=== PATIENT | female | born 1960 | race Caucasian/White ===

== ENCOUNTER 2016-11-10 08:15 | Inpatient (IN) | payer OTHER ==
[2016-11-10] MEDS ORDERED: DILTIAZEM 5 MG/ML 5 ML VIAL IVP STA (08:44)
[2016-11-10] MEDS ORDERED: DILTIAZEM 125 MG in SODIUM CHLORIDE 0.9% 100 ML IV ONE (09:00)
--- NOTE | 2016-11-10 09:01 | ED ---
General Adult HPI - General Chief complaint: Shortness of Breath Stated complaint: SOB Time Seen by Provider: 11/10/16 08:15 Source: patient, RN notes reviewed Mode of arrival: ambulatory Limitations: no limitations - History of Present Illness Initial comments: This is a 56-year-old female presents emergency department stating she started feeling short of breath yesterday. Patient states it seems worse with exertion. Patient denies any chest pain or palpitations patient denies any fever chills or cough. Patient denies any abdominal pain patient denies nausea vomiting diarrhea. Patient denies any recent injury or trauma. Patient denies lightheadedness dizziness or near syncopal episode. Patient denies any increased edema. Patient denies any calf pain. - Related Data Home Medications Medication Instructions Recorded Confirmed ALPRAZolam [Xanax] 0.5 mg PO DAILY PRN 11/10/16 11/10/16 Albuterol Inhaler [Ventolin Hfa 2 puff INHALATION RT-Q4H PRN 11/10/16 11/10/16 Inhaler] Atorvastatin [Lipitor] 10 mg PO HS 11/10/16 11/10/16 Cholecalciferol [Vitamin D3] 1,000 unit PO DAILY 11/10/16 11/10/16 DULoxetine HCL [Cymbalta] 30 mg PO HS 11/10/16 11/10/16 Vitamin B Complex 1 cap PO DAILY 11/10/16 11/10/16 Allergies Allergy/AdvReac Type Severity Reaction Status Date / Time No Known Allergies Allergy Verified 11/10/16 09:02 Review of Systems ROS Statement: Those systems with pertinent positive or pertinent negative responses have been documented in the HPI. ROS Other: All systems not noted in ROS Statement are negative. Past Medical History Past Medical History: COPD Additional Past Medical History / Comment(s): restrictive lung disease History of Any Multi-Drug Resistant Organisms: None Reported Past Surgical History: No Surgical Hx Reported Past Psychological History: No Psychological Hx Reported Smoking Status: Current every day smoker Past Alcohol Use History: None Reported Past Drug Use History: None Reported General Exam - General Exam Comments Initial Comments: GENERAL: Patient is well-developed and well-nourished. Patient is nontoxic and well- hydrated and is in mild distress. ENT: Neck is soft and supple. No significant lymphadenopathy is noted. Oropharynx is clear. Moist mucous membranes. Neck has full range of motion without eliciting any pain. EYES: The sclera were anicteric and conjunctiva were pink and moist. Extraocular movements were intact and pupils were equal round and reactive to light. Eyelids were unremarkable. PULMONARY: Unlabored respirations. Good breath sounds bilaterally. No audible rales rhonchi or wheezing was noted. CARDIOVASCULAR: Patient's heart rate is 150 beats a minute and is a regular ABDOMEN: Soft and nontender with normal bowel sounds. No palpable organomegaly was noted. There is no palpable pulsatile mass. SKIN: Skin is clear with no lesions or rashes and otherwise unremarkable. NEUROLOGIC: Patient is alert and oriented 3 cranial nerves II through XII are grossly intact. MUSCULOSKELETAL: Normal extremities with adequate strength and full range of motion. No lower extremity swelling or edema. No calf tenderness. LYMPHATICS: No significant lymphadenopathy is noted PSYCHIATRIC: Normal psychiatric evaluation. Normal interpersonal interactions appears functionally intact in deals appropriately with others. No signs of depression. No signs of anxiety. Limitations: no limitations Course Vital Signs 11/10/16 11/10/16 11/10/16 08:18 08:37 08:39 Temperature 99.2 F Pulse Rate 47 L Pulse Rate [ 160 H Left Radial] Respiratory 22 26 H Rate Blood Pressure 193/146 O2 Sat by Pulse 98 Oximetry 11/10/16 11/10/16 11/10/16 09:00 09:13 09:55 Temperature Pulse Rate 122 H 132 H 120 H Pulse Rate [ Left Radial] Respiratory 24 20 20 Rate Blood Pressure 156/104 117/73 125/71 O2 Sat by Pulse 98 93 L 95 Oximetry Medical Decision Making - Medical Decision Making EKG shows atrial fibrillation at 161 bpm QRS is 84 QT interval is 282 QTC is 461 per patient's EKG shows no ST segment elevation or depression. Patient was placed on Cardizem after receiving a 10 mg Cardizem bolus. Her heart rate came down to about 100 bpm. Patient states she felt a little better at this time. I heparinized the patient because of the new onset A. fib. I spoke with Dr. Joshi I admitted the patient I wrote admitting orders and consult cardiology. - Lab Data Result diagrams: 11/10/16 08:50 11/10/16 08:50 Lab Results 11/10/16 11/10/16 11/10/16 Range/Units 08:50 08:50 08:50 WBC 10.0 (3.8-10.6) k/uL RBC 4.84 (3.80-5.40) m/uL Hgb 14.1 (11.4-16.0) gm/dL Hct 44.2 (34.0-46.0) % MCV 91.5 (80.0-100.0) fL MCH 29.1 (25.0-35.0) pg MCHC 31.8 (31.0-37.0) g/dL RDW 14.4 (11.5-15.5) % Plt Count 229 (150-450) k/uL Neutrophils % 75 % Lymphocytes % 18 % Monocytes % 4 % Eosinophils % 1 % Basophils % 1 % Neutrophils # 7.5 (1.3-7.7) k/uL Lymphocytes # 1.8 (1.0-4.8) k/uL Monocytes # 0.4 (0-1.0) k/uL Eosinophils # 0.1 (0-0.7) k/uL Basophils # 0.1 (0-0.2) k/uL PT (9.0-12.0) sec INR (<1.1) APTT (22.0-30.0) sec Sodium 142 (137-145) mmol/L Potassium 4.7 (3.5-5.1) mmol/L Chloride 106 (98-107) mmol/L Carbon Dioxide 28 (22-30) mmol/L Anion Gap 8 mmol/L BUN 21 H (7-17) mg/dL Creatinine 0.80 (0.52-1.04) mg/dL Est GFR (MDRD) Af Amer >60 (>60 ml/min/1.73 sqM) Est GFR (MDRD) Non-Af >60 (>60 ml/min/1.73 sqM) Glucose 121 H (74-99) mg/dL Calcium 9.1 (8.4-10.2) mg/dL Magnesium 1.9 (1.6-2.3) mg/dL Total Bilirubin 0.9 (0.2-1.3) mg/dL AST 33 (14-36) U/L ALT 63 H (9-52) U/L Alkaline Phosphatase 62 (38-126) U/L Total Creatine Kinase 62 (30-135) U/L CK-MB (CK-2) 2.5 H* (0.0-2.4) ng/mL CK-MB (CK-2) Rel Index 4.0 Troponin I <0.012 (0.000-0.034) ng/mL Total Protein 7.1 (6.3-8.2) g/dL Albumin 3.7 (3.5-5.0) g/dL 11/10/16 Range/Units 08:50 WBC (3.8-10.6) k/uL RBC (3.80-5.40) m/uL Hgb (11.4-16.0) gm/dL Hct (34.0-46.0) % MCV (80.0-100.0) fL MCH (25.0-35.0) pg MCHC (31.0-37.0) g/dL RDW (11.5-15.5) % Plt Count (150-450) k/uL Neutrophils % % Lymphocytes % % Monocytes % % Eosinophils % % Basophils % % Neutrophils # (1.3-7.7) k/uL Lymphocytes # (1.0-4.8) k/uL Monocytes # (0-1.0) k/uL Eosinophils # (0-0.7) k/uL Basophils # (0-0.2) k/uL PT 10.5 (9.0-12.0) sec INR 1.0 (<1.1) APTT 24.0 (22.0-30.0) sec Sodium (137-145) mmol/L Potassium (3.5-5.1) mmol/L Chloride (98-107) mmol/L Carbon Dioxide (22-30) mmol/L Anion Gap mmol/L BUN (7-17) mg/dL Creatinine (0.52-1.04) mg/dL Est GFR (MDRD) Af Amer (>60 ml/min/1.73 sqM) Est GFR (MDRD) Non-Af (>60 ml/min/1.73 sqM) Glucose (74-99) mg/dL Calcium (8.4-10.2) mg/dL Magnesium (1.6-2.3) mg/dL Total Bilirubin (0.2-1.3) mg/dL AST (14-36) U/L ALT (9-52) U/L Alkaline Phosphatase (38-126) U/L Total Creatine Kinase (30-135) U/L CK-MB (CK-2) (0.0-2.4) ng/mL CK-MB (CK-2) Rel Index Troponin I (0.000-0.034) ng/mL Total Protein (6.3-8.2) g/dL Albumin (3.5-5.0) g/dL Critical Care Time Critical Care Time: Yes Total Critical Care Time: 35 Disposition Clinical Impression: Atrial fibrillation with rapid ventricular response Disposition: ADMITTED IP TO THIS HOSP Time of Disposition: 10:43
[2016-11-10 09:16] LABS: Basophils # (A) 0.1 k/uL (0-0.2); Basophils % (A) 1 %; CH 28.9; CHCM 31.8; Eosinophils # (A) 0.1 k/uL (0-0.7); Eosinophils % (A) 1 %; HCT 44.2 % (34.0-46.0); HDW 2.49; HGB 14.1 gm/dL (11.4-16.0); Luc # (Auto) 0.14; Luc % (Auto) 1; Lymphocytes # (A) 1.8 k/uL (1.0-4.8); Lymphocytes % (A) 18 %; MCH 29.1 pg (25.0-35.0); MCHC 31.8 g/dL (31.0-37.0); MCV 91.5 fL (80.0-100.0); Mean Platelet Volume 8.2; Monocytes # (A) 0.4 k/uL (0-1.0); Monocytes % (A) 4 %; Neutrophils # (A) 7.5 k/uL (1.3-7.7); Neutrophils % (A) 75 %; RBC 4.84 m/uL (3.80-5.40); RDW 14.4 % (11.5-15.5); WBC (Perox) 9.68
[2016-11-10 09:24] LABS: Prothrombin Time 10.5 sec (9.0-12.0)
[2016-11-10 09:33] LABS: ALT 63 U/L (9-52); AST 33 U/L (14-36); Alkaline Phosphatase 62 U/L (38-126); Anion Gap 8 mmol/L; Blood Urea Nitrogen 21 mg/dL (7-17); Calcium 9.1 mg/dL (8.4-10.2); Carbon Dioxide 28 mmol/L (22-30); Chloride 106 mmol/L (98-107); Glucose 121 mg/dL (74-99); Magnesium 1.9 mg/dL (1.6-2.3); Non-African American GFR(MDRD) >60 (>60 ml/min/1.73 sqM); Potassium 4.7 mmol/L (3.5-5.1); Sodium 142 mmol/L (137-145); Total Bilirubin 0.9 mg/dL (0.2-1.3); Total Protein 7.1 g/dL (6.3-8.2)
[2016-11-10 09:43] LABS: Creatine Kinase 62 U/L (30-135)
[2016-11-10 09:56] LABS: Troponin I <0.012 ng/mL (0.000-0.034)
[2016-11-10 09:58] LABS: Creatine Kinase MB 2.5 ng/mL (0.0-2.4)
[2016-11-10] MEDS ORDERED: HEPARIN SODIUM,PORCINE 5,000 UNIT/ML 1 ML VIAL IV ONE (10:41)
[2016-11-10] MEDS ORDERED: NITROGLYCERIN SL TABS 0.4 MG TAB SUBLINGUAL PRN (10:44)
[2016-11-10] MEDS: HEPARIN SODIUM,PORCINE/D5W PMX 25,000 UNIT in DEXTROSE/WATER 1 500ML.BAG IV SCH (11:11)
[2016-11-10] MEDS ORDERED: ALPRAZolam 0.5 MG TAB PO PRN (13:39)
[2016-11-10] MEDS ORDERED: ALBUTEROL NEBULIZED 2.5 MG/3 ML INHALATION PRN (13:39)
--- NOTE | 2016-11-10 13:56 | P.HPIM ---
History of Present Illness H&P Date: 11/10/16 Chief Complaint: Shortness of breath This is a 56-year-old female, patient of Dr. Hansen. She has a known past medical history of nicotine dependence, COPD, hyperlipidemia, anxiety, depression and obstructive sleep apnea. Patient presents the hospital with chief complaint of shortness of breath. Patient reports over the last month she thought she had a cough and chest cold contributed to her shortness of breath. However, last night she woke up with sudden shortness of breath. The shortness of breath did not improve. Therefore she came into the emergency room for further evaluation. She also has noted to have been more fatigued having shortness of breath with walking and feeling more nauseous. She does have a cough which was productive a few weeks ago and has now become nonproductive with some improvement. She denies any fever, chills, sweats, or vomiting. She does report having an episode of chest pain in the center of her chest that did resolve. Denies any bowel movement changes or urinary symptoms. Her EKG showed atrial fibrillation with rapid ventricular response with a heart rate of 161. She was given a Cardizem bolus and is currently on IV Cardizem drip. She's also on IV heparin drip. Cardiology has been consulted. This is a new onset of atrial fibrillation for patient. Troponin is negative. Chest x-ray is pending. Patient reports her last stress test was in June and it was normal. Patient is also noted some edema in her lower extremities bilaterally. She has been given water pills in the past. Currently not taking any water pills. Reports never having a history of congestive heart failure. Denies any leg pain. Review of Systems Please refer to HPI otherwise unremarkable Past Medical History Past Medical History: COPD, Hyperlipidemia, Sleep Apnea/CPAP/BIPAP (Currently not using CPAP. Has an appointment with meters superintendent for sleep study) Additional Past Medical History / Comment(s): restrictive lung disease, 06/2016 stress test WNL per pt. History of Any Multi-Drug Resistant Organisms: None Reported Past Surgical History: Tubal Ligation Past Anesthesia/Blood Transfusion Reactions: No Reported Reaction Past Psychological History: Anxiety, Depression Additional Psychological History / Comment(s): Pt resides with 2 adult daughters and her 4 yr old grand daughter. She is independent. Smoking Status: Current every day smoker Past Alcohol Use History: None Reported Additional Past Alcohol Use History / Comment(s): Pt started smoking in and was a ppd smoker. Recently she has cut back to 12-13 cigs a day. Past Drug Use History: None Reported - Past Family History Mother Family Medical History: Liver Disease Additional Family Medical History / Comment(s): Mother had cirrhosis. She at the age of 71yrs. Father Family Medical History: Cancer Additional Family Medical History / Comment(s): Father had mesothelioma. He at the age of 71 yrs. Medications and Allergies Home Medications Medication Instructions Recorded Confirmed Type ALPRAZolam [Xanax] 0.5 mg PO DAILY PRN 11/10/16 11/10/16 History Albuterol Inhaler [Ventolin Hfa 2 puff INHALATION RT-Q4H PRN 11/10/16 11/10/16 History Inhaler] Atorvastatin [Lipitor] 10 mg PO HS 11/10/16 11/10/16 History Cholecalciferol [Vitamin D3] 1,000 unit PO DAILY 11/10/16 11/10/16 History DULoxetine HCL [Cymbalta] 30 mg PO HS 11/10/16 11/10/16 History Vitamin B Complex 1 cap PO DAILY 11/10/16 11/10/16 History Allergies Allergy/AdvReac Type Severity Reaction Status Date / Time No Known Allergies Allergy Verified 11/10/16 09:02 Physical Exam Vitals: Vital Signs Temp Pulse Resp BP Pulse Ox 11/10/16 12:30 97.9 F 116 H 20 134/61 94 L 11/10/16 11:43 102 H 18 129/60 95 11/10/16 11:28 98 18 139/82 95 11/10/16 10:58 102 H 20 134/77 93 L Head normocephalic Neck supple Lungs coarse breath sounds that cleared with cough Heart regular rate and rhythm S1-S2, no rub or gallop Abdomen is soft nontender nondistended positive bowel sounds no hepatosplenomegaly Extremities trace to +1 edema bilaterally. No tenderness to palpation of legs. Neuro alert and orientated to 3 Results CBC & Chem 7: 11/10/16 08:50 11/10/16 08:50 Thrombosis Risk Factor Assmnt - Choose All That Apply Any of the Below Risk Factors Present?: Yes Each Factor Represents 1 point: Abnormal pulmonary function (COPD), Age 41-60 years, Obesity (BMI >25), Swollen legs (current) Other Risk Factors: No Other congenital or acquired thrombophilia - If yes, enter type in comment: No Thrombosis Risk Factor Assessment Total Risk Factor Score: 4 Thrombosis Risk Factor Assessment Level: Moderate Risk Assessment and Plan Plan: 1. Shortness of breath: Possibly related to the atrial fibrillation with rapid ventricular response. Await chest x-ray. Check BNP level. check d-dimer. To help rule out CHF or PE 2. New onset of atrial fibrillation with rapid ventricular response: Patient has been started on IV Cardizem drip and IV heparin. Cardiology has been consulted. Check TSH level 3. Nicotine dependence: Discussed smoking cessation for greater than 3 minutes. Start patient on nicotine patch 4. History of COPD: Stable. Continue albuterol inhaler as needed 5. Generalized Anxiety disorder and depression: Resume Xanax and Cymbalta 6. Hyperlipidemia resume Lipitor 7. History of obstructive sleep apnea: Needs a new CPAP machine. She has sleep study scheduled for outpatient GI prophylaxis Pepcid and DVT prophylaxis IV heparin Time with Patient: Greater than 30 (Greater than 50% of the total time spent in counseling and coordination of care.I performed an examination of the patient and discussed their management with the physician College Director. I have reviewed the Physician College Director's notes and agree with the documented findings and plan of care)
--- NOTE | 2016-11-10 14:59 | P.CRDCN ---
History of Present Illness Consult date: 11/10/16 History of present illness: This is a pleasant 56-year-old female patient with a past medical history significant for obesity and dyslipidemia as well as COPD who sees Dr. Darnell in the office on a regular basis presented to the hospital not feeling well. The patient was experiencing shortness of breath associated with weakness and dizziness and lightheadedness. She did not feed any heart racing or fluttering. She did not experience any chest pain or chest discomfort. The EKG in the emergency room showed A. fib with RVR and subsequently the patient was admitted to the hospital and started on Cardizem IV and heparin IV. She is not aware of any prior history of atrial fibrillation. Currently the patient is in A. fib with rapid ventricular response. She underwent only one set of serial cardiac enzymes came in to be unremarkable. The EKG showed diffuse nonspecific ST and T wave abnormalities. On physical examination, the patient seems to have expiratory bilateral wheezing and crackles. I do feel that she has a component of congestive heart failure in addition to the A. fib with RVR. We'll continue the patient on Cardizem and heparin. I will obtain the previous medical records from the office. I will also schedule the patient to undergo an echocardiogram was Doppler. Smoking cessation was discussed with her. Going to start the patient on Lasix IV. The chest x-ray still pending and the BMP also still pending. Past Medical History Past Medical History: COPD, Hyperlipidemia, Sleep Apnea/CPAP/BIPAP (Currently not using CPAP. Has an appointment with hansard reporter for sleep study) Additional Past Medical History / Comment(s): restrictive lung disease, 06/2016 stress test WNL per pt. History of Any Multi-Drug Resistant Organisms: None Reported Past Surgical History: Tubal Ligation Past Anesthesia/Blood Transfusion Reactions: No Reported Reaction Past Psychological History: Anxiety, Depression Additional Psychological History / Comment(s): Pt resides with 2 adult daughters and her 4 yr old grand daughter. She is independent. Smoking Status: Current every day smoker Past Alcohol Use History: None Reported Additional Past Alcohol Use History / Comment(s): Pt started smoking in and was a ppd smoker. Recently she has cut back to 12-13 cigs a day. Past Drug Use History: None Reported - Past Family History Mother Family Medical History: Liver Disease Additional Family Medical History / Comment(s): Mother had cirrhosis. She at the age of 71yrs. Father Family Medical History: Cancer Additional Family Medical History / Comment(s): Father had mesothelioma. He at the age of 71 yrs. Medications and Allergies Home Medications Medication Instructions Recorded Confirmed Type ALPRAZolam [Xanax] 0.5 mg PO DAILY PRN 11/10/16 11/10/16 History Albuterol Inhaler [Ventolin Hfa 2 puff INHALATION RT-Q4H PRN 11/10/16 11/10/16 History Inhaler] Atorvastatin [Lipitor] 10 mg PO HS 11/10/16 11/10/16 History Cholecalciferol [Vitamin D3] 1,000 unit PO DAILY 11/10/16 11/10/16 History DULoxetine HCL [Cymbalta] 30 mg PO HS 11/10/16 11/10/16 History Vitamin B Complex 1 cap PO DAILY 11/10/16 11/10/16 History Allergies Allergy/AdvReac Type Severity Reaction Status Date / Time No Known Allergies Allergy Verified 11/10/16 09:02 Physical Exam Vitals: Vital Signs Temp Pulse Resp BP Pulse Ox 11/10/16 12:30 97.9 F 116 H 20 134/61 94 L 11/10/16 11:43 102 H 18 129/60 95 11/10/16 11:28 98 18 139/82 95 11/10/16 10:58 102 H 20 134/77 93 L - Constitutional General appearance: no acute distress - Respiratory Respiratory: bilateral: rales - Cardiovascular Rhythm: irregularly irregular Heart sounds: normal: S1, S2 Results 11/10/16 08:50 11/10/16 08:50 Current Medications Generic Name Dose Route Start Last Admin Trade Name Freq PRN Reason Stop Dose Admin Albuterol Sulfate 2.5 mg 11/10/16 13:39 Ventolin Nebulized INHALATION RT-Q4H PRN Shortness Of Breath Alprazolam 0.5 mg 11/10/16 13:39 Xanax PO DAILY PRN Anxiety Aspirin 325 mg 11/11/16 09:00 Aspirin PO DAILY [facility] Atorvastatin Calcium 10 mg 11/10/16 21:00 Lipitor PO HS [facility] Cholecalciferol 1,000 unit 11/11/16 12:00 Vitamin D3 PO DAILY@1200 [facility] Duloxetine HCl 30 mg 11/10/16 21:00 Cymbalta PO HS [facility] Famotidine 20 mg 11/11/16 09:00 Pepcid PO DAILY [facility] Diltiazem HCl 125 mg/ Sodium 125 mls @ 5 mls/hr 11/10/16 09:00 11/10/16 09:04 Chloride IV 11/11/16 08:59 5 mg/hr .Q24H ONE 5 mls/hr 5 MG/HR Administration Heparin Sodium/Dextrose 25,000 500 mls @ 20 mls/hr 11/10/16 10:45 11/10/16 11 :11 unit/ IV Solution IV 8.227 units/kg/hr .Q24H [facility] 20 mls/hr Protocol Administration 8.227 UNITS/KG/HR Nicotine 1 patch 11/10/16 14:00 Habitrol 21mg/24hr Patch TRANSDERM DAILY [facility] Nitroglycerin 0.4 mg 11/10/16 10:44 Nitrostat SUBLINGUAL Q5M PRN Chest Pain Vitamin B Complex/Vit C/Vit E/Zinc 1 each 11/11/16 12:00 Z-Bec PO DAILY@1200 [facility] Assessment and Plan Plan: Assessment A. fib with RVR and that is a newly diagnosed A. fib Congestive heart failure exacerbation and known if it is due to systolic or diastolic dysfunction Probably COPD exacerbation Significant history of smoking Plan Continue the heparin IV and Cardizem IV and titrate the Cardizem for the heart rate Obtain an echocardiogram was Doppler Start the patient on Lasix IV Obtain the previous medical records from the office
[2016-11-10] MEDS ORDERED: ACETAMINOPHEN TAB 325 MG TAB PO PRN (15:06)
[2016-11-10 15:34] LABS: Creatine Kinase 63 U/L (30-135)
[2016-11-10 15:40] LABS: Partial Thromboplastin Time 29.8 sec (22.0-30.0)
[2016-11-10 15:48] LABS: Troponin I <0.012 ng/mL (0.000-0.034)
[2016-11-10 15:52] LABS: Creatine Kinase MB 2.5 ng/mL (0.0-2.4)
--- NOTE | 2016-11-10 16:03 | XR ---
EXAMINATION TYPE: XR chest 2V DATE OF EXAM: 11/10/2016 9:23 AM COMPARISON: 12/18/2015 HISTORY: Shortness of breath TECHNIQUE: Frontal and lateral views of the chest are obtained. FINDINGS: Scattered senescent parenchymal changes noted. Hyperinflation compatible with COPD. No evidence for infiltrate. No evidence for atelectasis. There is evidence of cardiomegaly with pulmonary venous congestion. No evidence for overt failure at this time. Mediastinal structures are stable and grossly unremarkable. No evidence for hilar prominence. Degenerative changes dorsal spine. IMPRESSION: 1. There is evidence of cardiomegaly with pulmonary venous congestion. No evidence for overt failure at this time.
[2016-11-10] MEDS: NICOTINE 21MG/24HR PATCH TRANSDERM SCH (16:06)
[2016-11-10] MEDS: FUROSEMIDE 10 MG/ML 4 ML VIAL IV SCH (16:07)
[2016-11-10] MEDS ORDERED: FUROSEMIDE 10 MG/ML 4 ML VIAL IV SCH (21:00)
[2016-11-10] MEDS: ATORVASTATIN 10 MG TAB PO SCH (21:09)
[2016-11-10] MEDS: DULoxetine HCL 30 MG CAPSULE.DR PO SCH (21:09)
[2016-11-10] MEDS: HEPARIN SODIUM,PORCINE 5,000 UNIT/ML 1 ML VIAL IV PRN (21:43)
[2016-11-10 21:53] LABS: Creatine Kinase 65 U/L (30-135)
[2016-11-10 22:05] LABS: Creatine Kinase MB 2.1 ng/mL (0.0-2.4); Troponin I <0.012 ng/mL (0.000-0.034)
[2016-11-11 03:32] LABS: Basophils # (A) 0.1 k/uL (0-0.2); Basophils % (A) 1 %; CHCM 31.3; Eosinophils # (A) 0.2 k/uL (0-0.7); Eosinophils % (A) 2 %; HCT 41.4 % (34.0-46.0); HDW 2.52; HGB 13.3 gm/dL (11.4-16.0); Hypochromasia Slight; Luc # (Auto) 0.13; Luc % (Auto) 2; Lymphocytes # (A) 1.8 k/uL (1.0-4.8); Lymphocytes % (A) 22 %; MCH 29.9 pg (25.0-35.0); MCHC 32.1 g/dL (31.0-37.0); MCV 93.2 fL (80.0-100.0); Mean Platelet Volume 8.3; Monocytes # (A) 0.4 k/uL (0-1.0); Monocytes % (A) 5 %; Neutrophils # (A) 5.6 k/uL (1.3-7.7); Neutrophils % (A) 69 %; RBC 4.44 m/uL (3.80-5.40); RDW 14.2 % (11.5-15.5); WBC 8.1 k/uL (3.8-10.6); WBC (Perox) 7.86
[2016-11-11 03:37] LABS: ALT 64 U/L (9-52); AST 26 U/L (14-36); Alkaline Phosphatase 53 U/L (38-126); Anion Gap 9 mmol/L; Blood Urea Nitrogen 18 mg/dL (7-17); Calcium 8.6 mg/dL (8.4-10.2); Carbon Dioxide 27 mmol/L (22-30); Chloride 106 mmol/L (98-107); Cholesterol 131 mg/dL (<200); Glucose 104 mg/dL (74-99); HDL Cholesterol 39 mg/dL (40-60); Non-African American GFR(MDRD) >60 (>60 ml/min/1.73 sqM); Potassium 4.3 mmol/L (3.5-5.1); Sodium 142 mmol/L (137-145); Total Bilirubin 0.6 mg/dL (0.2-1.3); Total Protein 6.2 g/dL (6.3-8.2); Triglycerides 83 mg/dL (<150)
[2016-11-11] MEDS: HEPARIN SODIUM,PORCINE 5,000 UNIT/ML 1 ML VIAL IV PRN ×2 (04:14→21:59)
[2016-11-11] MEDS: FUROSEMIDE 10 MG/ML 4 ML VIAL IV SCH ×2 (04:14→16:18)
[2016-11-11] MEDS: FAMOTIDINE 20 MG TAB PO SCH (08:10)
[2016-11-11] MEDS: ASPIRIN 325 MG TAB PO SCH (08:11)
[2016-11-11] MEDS: HEPARIN SODIUM,PORCINE/D5W PMX 25,000 UNIT in DEXTROSE/WATER 1 500ML.BAG IV SCH ×2 (08:12→21:59)
[2016-11-11] MEDS: NICOTINE 21MG/24HR PATCH TRANSDERM SCH (08:12)
[2016-11-11] MEDS: B COMPLEX-VIT C-VIT E-ZINC 1 EACH TAB PO SCH (08:13)
[2016-11-11] MEDS: CHOLECALCIFEROL 1,000 UNIT TAB PO SCH (08:14)
[2016-11-11] MEDS ORDERED: NICOTINE 21MG/24HR PATCH TRANSDERM SCH (09:00)
[2016-11-11 11:21] LABS: Hemoglobin A1C 5.7 % (4.2-6.1)
--- NOTE | 2016-11-11 12:07 | ECHOF ---
Referral Reason:CHF MEASUREMENTS -------- HEIGHT: 177.8 cm WEIGHT: 123.4 kg BP: 116/69 IVSd: 1.1 cm (0.6 - 1.1) LVIDd: 5.4 cm (3.9 - 5.3) LVPWd: 1.3 cm (0.6 - 1.1) IVSs: 1.7 cm LVIDs: 5.3 cm LVPWs: 1.1 cm Ao Diam: 3.3 cm (2.0 - 3.7) AV Cusp: 1.9 cm (1.5 - 2.6) LA Diam: 4.3 cm (2.7 - 3.8) MV EXCURSION: 19.913 mm (> 18.000) MV EF SLOPE: 85 mm/s (70 - 150) EPSS: 1.7 cm RAP: 5.00 mmHg RVSP: 9.06 mmHg FINDINGS -------- Atrial fibrillation. This was a technically difficult study with suboptimal views. There is mild concentric left ventricular hypertrophy. There is severe global hypokinesis of LV . Overall left ventricular systolic function is severely impaired with, an EF between 20 - 25 %. The right ventricle is normal in size and function. The left atrium is moderately dilated. The right atrium is normal in size. 1.5mg of Definity was utilized for enhancement of images The aortic valve was not well visualized. There is trace mitral regurgitation. Trace tricuspid regurgitation present. The right ventricular systolic pressure, as measured by Doppler, is 9.06mmHg. The pulmonic valve was not well visualized. The aortic root size is normal. The pericardium is normal. CONCLUSIONS -------- 1. Atrial fibrillation. 2. The aortic valve was not well visualized. 3. There is trace mitral regurgitation. 4. Trace tricuspid regurgitation present. 5. The right ventricular systolic pressure, as measured by Doppler, is 9.06mmHg. 6. The pulmonic valve was not well visualized. 7. The aortic root size is normal. 8. The pericardium is normal. 9. This was a technically difficult study with suboptimal views. 10. There is mild concentric left ventricular hypertrophy. 11. There is severe global hypokinesis of LV . 12. Overall left ventricular systolic function is severely impaired with, an EF between 20 - 25 %. 13. The right ventricle is normal in size and function. 14. The left atrium is moderately dilated. 15. The right atrium is normal in size. 16. 1.5mg of Definity was utilized for enhancement of images FURNITURE POLISHER: Patria Villarreal RDCS
--- NOTE | 2016-11-11 13:36 | P.PN ---
Subjective Principal diagnosis: A. fib with RVR, acute CHF exacerbation Patient is a 56-year-old female presenting with worsening shortness of breath She was evaluated in the emergency room she had evidence of atrial fibrillation with rapid ventricular response, she was admitted to telemetry floor and was started on IV Cardizem and IV heparin Echocardiogram was done and revealed significantly low ejection fraction of 20- 25% Patient is maintained on IV Lasix she states that she is improving Objective - Vital Signs Vital signs: Vital Signs Temp 98.3 F 11/11/16 08:00 Pulse 100 11/11/16 11:10 Resp 16 11/11/16 11:10 BP 130/92 11/11/16 11:10 Pulse Ox 91 L 11/11/16 11:10 Intake & Output 11/10/16 11/11/16 11/11/16 18:59 06:59 18:59 Intake Total 800 812.127 435.666 Output Total 3200 1200 1000 Balance -2400 -387.873 -564.334 Weight 123.7 kg Intake: IV 20 419.76 0.9 Saline 20 160 Diltiazem 125 mg In 40 Sodium Chloride 0.9% 100 ml @ 5 MG/HR 5 mls/hr IV .Q24H [facility] Rx#:[id number] Heparin Sodium,Porcine/ 219.76 D5w Pmx 25,000 unit In Dextrose/Water 1 500ml. bag @ 8.227 UNITS/KG/HR 20 mls/hr IV .Q24H [facility] Rx #:[id number] Intake, IV Titration 392.367 235.666 Amount Heparin Sodium,Porcine/ 392.367 235.666 D5w Pmx 25,000 unit In Dextrose/Water 1 500ml. bag @ 8.227 UNITS/KG/HR 20 mls/hr IV .Q24H [facility] Rx #:[id number] Oral 780 200 Output: Urine 3200 1200 1000 Other: Voiding Method Toilet # Voids 1 3 - Exam In general patient is alert and oriented 3 in no apparent distress HEENT head normocephalic and atraumatic Neck is supple no JVD no goiter no lymphadenopathy Chest exam reveals crackles in both lung azul no wheezing Cardiac exam reveals regular heart sounds no murmurs abdomen is soft nontender no organomegaly Extremity exam reveals no edema no cyanosis or clubbing - Labs CBC & Chem 7: 11/11/16 03:01 05/02/17 03:01 Labs: Abnormal Lab Results - Last 24 Hours (Table) 11/10/16 11/10/16 11/11/16 Range/Units 14:58 14:58 03:01 APTT (22.0-30.0) sec D-Dimer 0.71 H (<0.60) mg/L FEU BUN 18 H (7-17) mg/dL Glucose 104 H (74-99) mg/dL ALT 64 H (9-52) U/L CK-MB (CK-2) 2.5 H* (0.0-2.4) ng/mL Total Protein 6.2 L (6.3-8.2) g/dL Albumin 3.3 L (3.5-5.0) g/dL HDL Cholesterol 39 L (40-60) mg/dL 11/11/16 11/11/16 Range/Units 03:01 10:41 APTT 32.7 H 42.2 H (22.0-30.0) sec D-Dimer (<0.60) mg/L FEU BUN (7-17) mg/dL Glucose (74-99) mg/dL ALT (9-52) U/L CK-MB (CK-2) (0.0-2.4) ng/mL Total Protein (6.3-8.2) g/dL Albumin (3.5-5.0) g/dL HDL Cholesterol (40-60) mg/dL Assessment and Plan Plan: 1. Shortness of breath: Possibly related to the atrial fibrillation with rapid ventricular response. Also evidence of acute congestive heart failure exacerbation with significantly depressed ejection fraction to 20-25% 2. New onset of atrial fibrillation with rapid ventricular response: Patient has been started on IV Cardizem drip and IV heparin. Cardiology has been consulted. Check TSH level 3. Nicotine dependence: Discussed smoking cessation for greater than 3 minutes. Start patient on nicotine patch 4. History of COPD: Stable. Continue albuterol inhaler as needed 5. Generalized Anxiety disorder and depression: Resume Xanax and Cymbalta 6. Hyperlipidemia resume Lipitor 7. History of obstructive sleep apnea: Needs a new CPAP machine. She has sleep study scheduled for outpatient At this time continue was current medications with IV heparin, IV Cardizem, IV Lasix drip Awaiting further recommendation from cardiology Prognosis is guarded due to decreased ejection fraction will follow closely
--- NOTE | 2016-11-11 14:31 | CDI ---
In responding to this query, please exercise your independent professional judgment. The [facility] Coding Staff and Clinical Documentation Specialists appreciate your assistance in clarifying documentation, maintaining compliance with coding guidelines, accurately documenting patients condition and capturing severity of illness. The fact that a question is asked does not imply that any particular answer is desired or expected. Communication forms are a method of clarifying documentation and are not made part of the Legal Health Record. Thank you in advance for your clarification. Last Revision, May 2015 Brianna Geiger [address] [place] [address] Documentation Clarification Form Date: 11/11/2016 2:21:00 PM From: Carmen Maloney, ELIZ, CCDS Admit Date: 11/10/2016 10:44:00 AM Patient Name: Bushra Mcdermott Visit Number: [id number] Discharge Date: Dr. Jonatan Talamantes: 56 yo female, admitted with SOB, weakness & dizziness & lightheadedness. EKG in ER: Atrial fibrillation w/RVR and started on Cardizem & Heparin drips with no history of Atrial fibrillation. Diagnosed with possible new onset of Atrial Fibrillation. History/Risk Factors: COPD, Hyperlipidemia, Sleep Apnea w/CPAP. Clinical Indicators: A fib on EKG with irregular heart rate: 47 - 122 with respiratory rate of 26 (sob, shallow, tachypnea) BP 193/146 EKG/telemetry: A Fib w/RVR Rate 161 Treatment: Cardizem & Heparin drips, ECHO Consults: Cardiology In your professional opinion, can you please clarify the type of atrial fibrillation, if known? Chronic/Permanent Paroxysmal Persistent Other, please specify Unable to determine Please document in your progress notes and discharge summary in order to capture severity of illness and risk of mortality. Include clinical findings that support your diagnosis. FYI: Press F11 to launch patient chart Place X here if this finding has no clinical significance, is not applicable or if you are not able to provide any additional documentation. Thank You. ELEANOR
--- NOTE | 2016-11-11 14:44 | P.PN ---
Subjective Principal diagnosis: A. fib, CHF This is a pleasant 56-year-old female patient with a past medical history significant for obesity and dyslipidemia as well as COPD who sees Dr. Darnell in the office on a regular basis presented to the hospital not feeling well.The patient was experiencing shortness of breath associated with weakness and dizziness and lightheadedness. She did not feel any heart racing or fluttering. She did not experience any chest pain or chest discomfort.The EKG in the emergency room showed A. fib with RVR and subsequently the patient was admitted to the hospital and started on Cardizem IV and heparin IV. She is not aware of any prior history of atrial fibrillation. Patient was also initiated on IV Lasix for mild congestive cardiac failure. Overall the patient is feeling significantly better today. Diuresed well through the night last night. Continues to be in atrial fibrillation with a controlled ventricular response. Echocardiogram with Doppler study was performed which revealed an ejection fraction of 20-25%. Severe global hypokinesia. Objective - Vital Signs Vital signs: Vital Signs Temp 98.3 F 11/11/16 08:00 Pulse 100 11/11/16 11:10 Resp 16 11/11/16 11:10 BP 130/92 11/11/16 11:10 Pulse Ox 91 L 11/11/16 11:10 Intake & Output 11/10/16 11/11/16 11/11/16 18:59 06:59 18:59 Intake Total 800 812.127 435.666 Output Total 3200 1200 1000 Balance -2400 -387.873 -564.334 Weight 123.7 kg Intake: IV 20 419.76 0.9 Saline 20 160 Diltiazem 125 mg In 40 Sodium Chloride 0.9% 100 ml @ 5 MG/HR 5 mls/hr IV .Q24H [facility] Rx#:[id number] Heparin Sodium,Porcine/ 219.76 D5w Pmx 25,000 unit In Dextrose/Water 1 500ml. bag @ 8.227 UNITS/KG/HR 20 mls/hr IV .Q24H [facility] Rx #:[id number] Intake, IV Titration 392.367 235.666 Amount Heparin Sodium,Porcine/ 392.367 235.666 D5w Pmx 25,000 unit In Dextrose/Water 1 500ml. bag @ 8.227 UNITS/KG/HR 20 mls/hr IV .Q24H [facility] Rx #:[id number] Oral 780 200 Output: Urine 3200 1200 1000 Other: Voiding Method Toilet # Voids 1 3 - Exam PHYSICAL EXAMINATION: HEENT: Head is atraumatic, normocephalic. Pupils equal, round. Neck is supple. There is no elevated jugular venous pressure. HEART EXAMINATION: Heart S1 and S2 irregularly irregular CHEST EXAMINATION:'s reveal rales to bilateral bases. ABDOMEN: Soft, nontender. Bowel sounds are heard. No organomegaly noted. EXTREMITIES: 2+ peripheral pulses with no evidence of peripheral edema and no calf tenderness noted. NEUROLOGIC patient is awake, alert and oriented -3. . - Labs CBC & Chem 7: 11/11/16 03:01 11/11/16 03:01 Labs: Abnormal Lab Results - Last 24 Hours (Table) 11/10/16 11/10/16 11/11/16 Range/Units 14:58 14:58 03:01 APTT (22.0-30.0) sec D-Dimer 0.71 H (<0.60) mg/L FEU BUN 18 H (7-17) mg/dL Glucose 104 H (74-99) mg/dL ALT 64 H (9-52) U/L CK-MB (CK-2) 2.5 H* (0.0-2.4) ng/mL Total Protein 6.2 L (6.3-8.2) g/dL Albumin 3.3 L (3.5-5.0) g/dL HDL Cholesterol 39 L (40-60) mg/dL 11/11/16 11/11/16 Range/Units 03:01 10:41 APTT 32.7 H 42.2 H (22.0-30.0) sec D-Dimer (<0.60) mg/L FEU BUN (7-17) mg/dL Glucose (74-99) mg/dL ALT (9-52) U/L CK-MB (CK-2) (0.0-2.4) ng/mL Total Protein (6.3-8.2) g/dL Albumin (3.5-5.0) g/dL HDL Cholesterol (40-60) mg/dL Assessment and Plan (1) Chronic a-fib Status: Acute (2) Systolic CHF, acute on chronic Status: Acute (3) COPD exacerbation Status: Acute (4) Nicotine dependence Status: Acute (5) Cardiomyopathy Status: Acute Plan: From cardiology's perspective, we'll decrease aspirin 81 mg daily, and initiate low-dose beta cirilo, KAMILLA inhibitor, and Aldactone. Continue current dose of IV Lasix. Continue to monitor intake and output along with daily weights. We will also check to see if the patient is a candidate for one of the newer anticoagulants. Further recommendations to follow. DNP note has been reviewed, I agree with a documented findings and plan of care. Patient was seen and examined.
--- NOTE | 2016-11-11 14:46 | CDI ---
In responding to this query, please exercise your independent professional judgment. The [facility] Coding Staff and Clinical Documentation Specialists appreciate your assistance in clarifying documentation, maintaining compliance with coding guidelines, accurately documenting patients condition and capturing severity of illness. The fact that a question is asked does not imply that any particular answer is desired or expected. Communication forms are a method of clarifying documentation and are not made part of the Legal Health Record. Thank you in advance for your clarification. Last Revision, September 2015 Brianna Geiger [address] [place] [address] Documentation Clarification Form Date: 11/11/2016 2:32:00 PM From: Carmen Maloney, ELIZ, CCDS Admit Date: 11/10/2016 10:44:00 AM Patient Name: Bushra Mcdermott Visit Number: [id number] Discharge Date: Dr. Jonatan Talamantes: 56 yo female, admitted with SOB, weakness & dizziness & lightheadedness. EKG in ER: Atrial fibrillation w/RVR and started on Cardizem & Heparin drips with no history of atrial fibrillation. Diagnosed with possible new onset of Atrial Fibrillation History/Risk Factors: COPD, Hyperlipidemia, Sleep Apnea w/CPAP. Clinical Indicators: A fib on EKG with irregular heart rate: 47 - 122 with respiratory rate of 26 (sob, shallow, tachypnea) BP 193/146. EKG/telemetry: A Fib w/RVR Rate 161 Treatment: Cardizem & Heparin drips, ECHO Consults: Cardiology In your professional opinion, can you please clarify the acuity and type of CHF if known? Acute Chronic Acute on Chronic AND Systolic Diastolic Systolic and Diastolic Unable to determine Other, please specify If known, please specify if Heart Failure is due to: Hypertension Rheumatic Fever Please document in your progress notes and discharge summary in order to capture severity of illness and risk of mortality. Include clinical findings that support your diagnosis. FYI: Press F11 to launch patient chart. Place X here if this finding has no clinical significance, is not applicable or if you are not able to provide any additional documentation. Thank You. ELEANOR
[2016-11-11] MEDS: CARVEDILOL 1.563 MG TAB PO SCH (17:30)
[2016-11-11] MEDS: ATORVASTATIN 10 MG TAB PO SCH (22:00)
[2016-11-11] MEDS: DULoxetine HCL 30 MG CAPSULE.DR PO SCH (22:00)
[2016-11-12 03:51] LABS: Basophils % (A) 1 %; CH 29.1; CHCM 31.1; Eosinophils # (A) 0.2 k/uL (0-0.7); Eosinophils % (A) 3 %; HCT 44.8 % (34.0-46.0); HDW 2.43; Hypochromasia Slight; Luc # (Auto) 0.15; Luc % (Auto) 2; Lymphocytes # (A) 1.6 k/uL (1.0-4.8); Lymphocytes % (A) 19 %; MCH 29.4 pg (25.0-35.0); MCHC 31.3 g/dL (31.0-37.0); Mean Platelet Volume 7.8; Monocytes # (A) 0.4 k/uL (0-1.0); Monocytes % (A) 4 %; Neutrophils # (A) 5.9 k/uL (1.3-7.7); Neutrophils % (A) 72 %; RBC 4.77 m/uL (3.80-5.40); RDW 14.1 % (11.5-15.5); WBC 8.3 k/uL (3.8-10.6); WBC (Perox) 8.42
[2016-11-12 04:42] LABS: ALT 51 U/L (9-52); AST 21 U/L (14-36); Alkaline Phosphatase 55 U/L (38-126); Anion Gap 7 mmol/L; Blood Urea Nitrogen 19 mg/dL (7-17); Calcium 8.8 mg/dL (8.4-10.2); Carbon Dioxide 33 mmol/L (22-30); Chloride 102 mmol/L (98-107); Glucose 95 mg/dL (74-99); Non-African American GFR(MDRD) >60 (>60 ml/min/1.73 sqM); Potassium 3.9 mmol/L (3.5-5.1); Sodium 142 mmol/L (137-145); Total Bilirubin 0.8 mg/dL (0.2-1.3); Total Protein 6.5 g/dL (6.3-8.2)
[2016-11-12] MEDS: FUROSEMIDE 10 MG/ML 4 ML VIAL IV SCH ×2 (04:47→16:00)
[2016-11-12] MEDS: CARVEDILOL 1.563 MG TAB PO SCH ×2 (06:51→17:07)
[2016-11-12] MEDS: FAMOTIDINE 20 MG TAB PO SCH (08:33)
[2016-11-12] MEDS: ASPIRIN 325 MG TAB PO SCH (08:33)
[2016-11-12] MEDS: LISINOPRIL 2.5 MG TAB PO SCH (08:33)
[2016-11-12] MEDS: CHOLECALCIFEROL 1,000 UNIT TAB PO SCH (08:33)
[2016-11-12] MEDS: B COMPLEX-VIT C-VIT E-ZINC 1 EACH TAB PO SCH (08:33)
[2016-11-12] MEDS: SPIRONOLACTONE 25 MG TAB PO SCH (08:34)
[2016-11-12] MEDS: NICOTINE 21MG/24HR PATCH TRANSDERM SCH (08:34)
[2016-11-12] MEDS ORDERED: HEPARIN SODIUM,PORCINE 5,000 UNIT/ML 1 ML VIAL IV PRN (12:14)
[2016-11-12] MEDS ORDERED: HEPARIN SODIUM,PORCINE/D5W PMX 25,000 UNIT in DEXTROSE/WATER 1 500ML.BAG IV SCH (12:30)
[2016-11-12] MEDS ORDERED: NITROGLYCERIN SL TABS 0.4 MG TAB SUBLINGUAL PRN (14:47)
[2016-11-12] MEDS ORDERED: ALPRAZolam 0.25 MG TAB PO PRN (14:47)
[2016-11-12] MEDS ORDERED: ALPRAZolam 0.5 MG TAB PO PRN (14:47)
[2016-11-12] MEDS ORDERED: SODIUM CHLORIDE 0.9% 1,000 ML in EMPTY BAG 1 BAG IV ONE (14:47)
[2016-11-12] MEDS ORDERED: ATORVASTATIN 80 MG TAB PO STA (14:47)
[2016-11-12] MEDS ORDERED: ASPIRIN 325 MG TAB PO STA (14:47)
--- NOTE | 2016-11-12 15:14 | P.PN ---
Subjective Principal diagnosis: A. fib, CHF This is a pleasant 56-year-old female patient with a past medical history significant for obesity and dyslipidemia as well as COPD who sees Dr. Darnell in the office on a regular basis presented to the hospital not feeling well.The patient was experiencing shortness of breath associated with weakness and dizziness and lightheadedness. She did not feel any heart racing or fluttering. She did not experience any chest pain or chest discomfort.The EKG in the emergency room showed A. fib with RVR and subsequently the patient was admitted to the hospital and started on Cardizem IV and heparin IV. She is not aware of any prior history of atrial fibrillation. Patient was also initiated on IV Lasix for mild congestive cardiac failure systolic in nature acute on chronic. Overall the patient is feeling significantly better today. Diuresed well through the night last night. Continues to be in atrial fibrillation with a controlled ventricular response. Echocardiogram with Doppler study was performed which revealed an ejection fraction of 20-25%. Severe global hypokinesia. Patient did have a stress echocardiographic study performed in June 2016 her LV function was documented to be normal at that time. Patient was advised to undergo cardiac catheterization tomorrow and to rule out any underlying coronary artery disease. The risks and the benefits were explained to the patient in detail and she is willing to proceed. This will be performed by Dr. Darnell tomorrow. Creatinine today 0.6, potassium 3.9. Objective - Vital Signs Vital signs: Vital Signs Temp 97.6 F 11/12/16 08:00 Pulse 112 H 11/12/16 12:00 Resp 16 11/12/16 08:00 BP 129/97 11/12/16 12:00 Pulse Ox 93 L 11/12/16 12:00 Intake & Output 11/11/16 11/12/16 11/12/16 18:59 06:59 18:59 Intake Total 525.955 5795.895 914 Output Total 1000 1050 Balance -304.334 88.895 914 Weight 120.2 kg Intake: IV 482.04 354 0.9 Saline 125 120 Heparin Sodium,Porcine/ 357.04 234 D5w Pmx 25,000 unit In Dextrose/Water 1 500ml. bag @ 8.227 UNITS/KG/HR 20 mls/hr IV .Q24H [facility] Rx #:[id number] Intake, IV Titration 235.666 656.855 Amount Heparin Sodium,Porcine/ 235.666 656.855 D5w Pmx 25,000 unit In Dextrose/Water 1 500ml. bag @ 8.227 UNITS/KG/HR 20 mls/hr IV .Q24H [facility] Rx #:[id number] Oral 460 560 Output: Urine 1000 1050 Other: Voiding Method Toilet # Voids 3 - Exam PHYSICAL EXAMINATION: HEENT: Head is atraumatic, normocephalic. Pupils equal, round. Neck is supple. There is no elevated jugular venous pressure. HEART EXAMINATION: Heart S1 and S2 irregularly irregular CHEST EXAMINATION: lungs reveal rales to bilateral bases. ABDOMEN: Soft, nontender. Bowel sounds are heard. No organomegaly noted. EXTREMITIES: 2+ peripheral pulses with no evidence of peripheral edema and no calf tenderness noted. NEUROLOGIC patient is awake, alert and oriented -3. . - Labs CBC & Chem 7: 11/12/16 03:37 11/12/16 03:37 Labs: Abnormal Lab Results - Last 24 Hours (Table) 11/11/16 11/11/16 11/12/16 Range/Units 15:01 19:33 03:37 APTT 49.1 H 40.2 H (22.0-30.0) sec Carbon Dioxide 33 H (22-30) mmol/L BUN 19 H (7-17) mg/dL Albumin 3.3 L (3.5-5.0) g/dL 11/12/16 11/12/16 Range/Units 03:37 11:03 APTT 75.5 H 57.0 H (22.0-30.0) sec Carbon Dioxide (22-30) mmol/L BUN (7-17) mg/dL Albumin (3.5-5.0) g/dL Assessment and Plan (1) Chronic a-fib Status: Acute (2) Systolic CHF, acute on chronic Status: Acute (3) COPD exacerbation Status: Acute (4) Nicotine dependence Status: Acute (5) Cardiomyopathy Status: Acute Plan: From cardiology's perspective, we'll decrease aspirin 81 mg daily, and initiate low-dose beta cirilo, KAMILLA inhibitor, and Aldactone. Continue current dose of IV Lasix. Patient has been advised to undergo cardiac catheterization tomorrow to rule out underlying coronary artery disease as a cause of her cardiomyopathy. The risks and the benefits were explained to the patient in detail and she is willing to proceed. This will be performed tomorrow by Dr. Darnell. DNP note has been reviewed, I agree with a documented findings and plan of care. Patient was seen and examined.
--- NOTE | 2016-11-12 16:57 | P.PN ---
Subjective Principal diagnosis: A. fib with RVR, acute CHF exacerbation Patient is a 56-year-old female presenting with worsening shortness of breath She was evaluated in the emergency room she had evidence of atrial fibrillation with rapid ventricular response, she was admitted to telemetry floor and was started on IV Cardizem and IV heparin Echocardiogram was done and revealed significantly low ejection fraction of 20- 25% Patient is maintained on IV Lasix she states that she is improving Objective - Vital Signs Vital signs: Vital Signs Temp 97.6 F 11/12/16 08:00 Pulse 100 11/12/16 15:58 Resp 18 11/12/16 15:58 BP 110/75 11/12/16 15:58 Pulse Ox 92 L 11/12/16 15:58 Intake & Output 11/11/16 11/12/16 11/12/16 18:59 06:59 18:59 Intake Total 244.406 7778.895 914 Output Total 1000 1050 Balance -304.334 88.895 914 Weight 120.2 kg Intake: IV 482.04 354 0.9 Saline 125 120 Heparin Sodium,Porcine/ 357.04 234 D5w Pmx 25,000 unit In Dextrose/Water 1 500ml. bag @ 8.227 UNITS/KG/HR 20 mls/hr IV .Q24H [facility] Rx #:[id number] Intake, IV Titration 235.666 656.855 Amount Heparin Sodium,Porcine/ 235.666 656.855 D5w Pmx 25,000 unit In Dextrose/Water 1 500ml. bag @ 8.227 UNITS/KG/HR 20 mls/hr IV .Q24H [facility] Rx #:[id number] Oral 460 560 Output: Urine 1000 1050 Other: Voiding Method Toilet # Voids 3 - Exam In general patient is alert and oriented 3 in no apparent distress HEENT head normocephalic and atraumatic Neck is supple no JVD no goiter no lymphadenopathy Chest exam reveals crackles in both lung azul no wheezing Cardiac exam reveals regular heart sounds no murmurs abdomen is soft nontender no organomegaly Extremity exam reveals no edema no cyanosis or clubbing - Labs CBC & Chem 7: 11/12/16 03:37 11/12/16 03:37 Labs: Abnormal Lab Results - Last 24 Hours (Table) 11/11/16 11/12/16 11/12/16 Range/Units 19:33 03:37 03:37 APTT 40.2 H 75.5 H (22.0-30.0) sec Carbon Dioxide 33 H (22-30) mmol/L BUN 19 H (7-17) mg/dL Albumin 3.3 L (3.5-5.0) g/dL 11/12/16 Range/Units 11:03 APTT 57.0 H (22.0-30.0) sec Carbon Dioxide (22-30) mmol/L BUN (7-17) mg/dL Albumin (3.5-5.0) g/dL Assessment and Plan Plan: 1. Shortness of breath: Possibly related to the atrial fibrillation with rapid ventricular response. Also evidence of acute congestive heart failure exacerbation with significantly depressed ejection fraction to 20-25% 2. New onset of atrial fibrillation with rapid ventricular response: Patient has been started on IV Cardizem drip and IV heparin. Cardiology has been consulted. Check TSH level 3. Nicotine dependence: Discussed smoking cessation for greater than 3 minutes. Start patient on nicotine patch 4. History of COPD: Stable. Continue albuterol inhaler as needed 5. Generalized Anxiety disorder and depression: Resume Xanax and Cymbalta 6. Hyperlipidemia resume Lipitor 7. History of obstructive sleep apnea: Needs a new CPAP machine. She has sleep study scheduled for outpatient At this time patient is scheduled for cardiac catheterization tomorrow Further therapeutic steps will depend on cardiac cath results Will follow in a.m.
[2016-11-12] MEDS: DULoxetine HCL 30 MG CAPSULE.DR PO SCH (21:33)
[2016-11-12] MEDS: ATORVASTATIN 10 MG TAB PO SCH (21:33)
[2016-11-13] MEDS: FUROSEMIDE 10 MG/ML 4 ML VIAL IV SCH ×2 (04:28→17:35)
[2016-11-13 06:51] LABS: Basophils % (A) 0 %; CH 29.4; CHCM 32.7; Eosinophils # (A) 0.2 k/uL (0-0.7); Eosinophils % (A) 3 %; HCT 46.1 % (34.0-46.0); HDW 2.66; Luc # (Auto) 0.14; Luc % (Auto) 2; Lymphocytes # (A) 1.6 k/uL (1.0-4.8); Lymphocytes % (A) 22 %; MCH 29.3 pg (25.0-35.0); MCHC 32.5 g/dL (31.0-37.0); MCV 90.2 fL (80.0-100.0); Mean Platelet Volume 8.1; Monocytes # (A) 0.4 k/uL (0-1.0); Monocytes % (A) 6 %; Neutrophils % (A) 68 %; RBC 5.11 m/uL (3.80-5.40); RDW 14.4 % (11.5-15.5); WBC 7.4 k/uL (3.8-10.6); WBC (Perox) 7.09
[2016-11-13] MEDS: NICOTINE 21MG/24HR PATCH TRANSDERM SCH (06:51)
[2016-11-13] MEDS: FAMOTIDINE 20 MG TAB PO SCH (06:52)
[2016-11-13] MEDS: ASPIRIN 81 MG CHEW PO SCH (06:52)
[2016-11-13] MEDS: SPIRONOLACTONE 25 MG TAB PO SCH (06:52)
[2016-11-13] MEDS: CARVEDILOL 1.563 MG TAB PO SCH ×2 (06:52→17:35)
[2016-11-13] MEDS: LISINOPRIL 2.5 MG TAB PO SCH (06:52)
[2016-11-13 07:24] LABS: ALT 45 U/L (9-52); AST 23 U/L (14-36); Alkaline Phosphatase 58 U/L (38-126); Anion Gap 13 mmol/L; Blood Urea Nitrogen 23 mg/dL (7-17); Calcium 9.3 mg/dL (8.4-10.2); Carbon Dioxide 28 mmol/L (22-30); Chloride 102 mmol/L (98-107); Glucose 107 mg/dL (74-99); Non-African American GFR(MDRD) >60 (>60 ml/min/1.73 sqM); Potassium 4.1 mmol/L (3.5-5.1); Sodium 143 mmol/L (137-145); Total Bilirubin 0.9 mg/dL (0.2-1.3); Total Protein 7.2 g/dL (6.3-8.2)
[2016-11-13] MEDS ORDERED: LIDOCAINE 2% INJ 20 MG/ML (20 ML MDV) ONE ×2 (09:24→09:54)
[2016-11-13] MEDS ORDERED: fentaNYL (PF) 50 MCG/ML 2 ML AMP ONE (09:41)
[2016-11-13] MEDS ORDERED: diphenhydrAMINE 50 MG/ML 1 ML VIAL ONE (09:42)
[2016-11-13] MEDS ORDERED: diphenhydrAMINE 50 MG/ML 1 ML VIAL IVP ONE (09:45)
[2016-11-13] MEDS ORDERED: fentaNYL (PF) 50 MCG/ML 2 ML AMP IV ONE (09:45)
[2016-11-13] MEDS ORDERED: LIDOCAINE 2% INJ 20 MG/ML SQ ONE (09:54)
[2016-11-13] MEDS ORDERED: SODIUM CHLORIDE 0.9% 1,000 ML IV ONE (09:56)
[2016-11-13] MEDS ORDERED: IOHEXOL 350 MG/ML 125ML BOTTLE INJ ONE (10:16)
[2016-11-13] MEDS ORDERED: RX INFO: IV CONTRAST WAS GIVEN 1 EACH MISC MISCELLANE PRN (10:22)
--- NOTE | 2016-11-13 10:25 | P.PN ---
Subjective A. fib with RVR, acute CHF exacerbation Patient is a 56-year-old female presenting with worsening shortness of breath She was evaluated in the emergency room she had evidence of atrial fibrillation with rapid ventricular response, she was admitted to telemetry floor and was started on IV Cardizem and IV heparin Echocardiogram was done and revealed significantly low ejection fraction of 20- 25% Patient is maintained on IV Lasix she states that she is improving 11/13/2016 patient reports improvement in her shortness of breath and lower extremity edema. She is scheduled for a heart catheterization later this morning. Denies any chest pain. Denies a nausea vomiting. She did have a bowel movement this morning. Denies any burning with urination Objective - Vital Signs Vital signs: Vital Signs Temp 98.5 F 11/13/16 07:30 Pulse 84 11/13/16 07:30 Resp 20 11/13/16 07:30 BP 102/64 11/13/16 07:30 Pulse Ox 95 11/13/16 07:30 Intake & Output 11/12/16 11/13/16 11/13/16 18:59 06:59 18:59 Intake Total 914 360 50 Balance 914 360 50 Weight 119.6 kg Intake: IV 354 360 50 0.9 Saline 120 40 Heparin Sodium,Porcine/ 234 320 D5w Pmx 25,000 unit In Dextrose/Water 1 500ml. bag @ 8.227 UNITS/KG/HR 20 mls/hr IV .Q24H [facility] Rx #:[id number] Oral 560 Other: Voiding Method Toilet # Voids 1 - Exam Head normocephalic Neck supple Lungs clear to auscultation bilaterally no wheezing or crackles Heart irregular. A. fib on monitor Abdomen is soft nontender nondistended positive bowel sounds no hepatosplenomegaly Extremities no edema Neuro alert and orientated to 3 - Labs CBC & Chem 7: 11/13/16 06:02 11/13/16 06:02 Labs: Abnormal Lab Results - Last 24 Hours (Table) 11/12/16 11/13/16 11/13/16 Range/Units 11:03 06:02 06:02 Hct 46.1 H (34.0-46.0) % APTT 57.0 H (22.0-30.0) sec BUN 23 H (7-17) mg/dL Glucose 107 H (74-99) mg/dL 11/13/16 Range/Units 06:06 Hct (34.0-46.0) % APTT 51.1 H (22.0-30.0) sec BUN (7-17) mg/dL Glucose (74-99) mg/dL Assessment and Plan Plan: 1. Shortness of breath: Possibly related to the atrial fibrillation with rapid ventricular response and acute CHF exacerbation. 2. New onset of atrial fibrillation with rapid ventricular response: Continue IV heparin. Continue Coreg. Heart rate controlled. Cardiology following. TSH level within normal range. 3. Nicotine dependence: Discussed smoking cessation for greater than 3 minutes. Start patient on nicotine patch 4. History of COPD: Stable. Continue albuterol inhaler as needed 5. Generalized Anxiety disorder and depression: Resume Xanax and Cymbalta 6. Hyperlipidemia resume Lipitor 7. History of obstructive sleep apnea: Needs a new CPAP machine. She has sleep study scheduled for outpatient 8. Acute systolic CHF exacerbation. Echo showing EF of 20-25%. Patient is scheduled for heart catheterization this morning. Cardiology did add KAMILLA inhibitor and beta cirilo and Aldactone GI prophylaxis Pepcid and DVT prophylaxis IV heparin I performed an examination of the patient and discussed their management with the physician Health And Fitness Instructor. I have reviewed the Physician Health And Fitness Instructor's notes and agree with the documented findings and plan of care
--- NOTE | 2016-11-13 11:07 | CC ---
DATE OF SERVICE: REASON FOR CONSULTATION: Patient developed a new onset of atrial fibrillation, ejection fraction noted to be 20%. The ejection fraction is normal in June, some kind of ( ) might have been the cause for it. Because of severe impairment of LV function with atrial fibrillation, patient was referred for cardiac catheterization to rule out underlying ischemic heart disease. Patient is moderately obese, hypertensive, hyperlipidemic, is on appropriate medical therapy. Past history of smoking. PROCEDURE: Under local anesthesia, right femoral artery was prepped and cannulated using a Seldinger technique. A 6 Maltese sheath is placed into the right femoral artery and proceeded with the right and left coronary arteriograms and followed by coronary angiogram, left ventriculogram followed by common femoral angiogram and Angio-Seal. Patient has been on sedation for approximately 45 minutes. Patient tolerated the procedure very well. HEMODYNAMIC DATA: Aortic pressure noted to be 91/73 with a mean pressure of 83. Left ventricular end diastolic pressure prior to angiography noted to be 24 mmHg, post angiography remained the same. Left ventriculogram revealed severely dilated left ventricle with severely generalized hypokinesis consistent with cardiomyopathy without any mitral regurgitation. Ascending aorta appeared normal. SELECTIVE CORONARY ARTERIOGRAPHY: Left main coronary artery is long and free of significant atherosclerotic occlusive disease. Left anterior descending is a moderate caliber vessel, free of atherosclerotic occlusive disease. Left circumflex and its branches are free of any atherosclerotic occlusive disease throughout its course. RIGHT CORONARY ARTERY: Right coronary artery is a dominant, moderate caliber blood vessel free of any atherosclerotic occlusive disease throughout its course. ASSESSMENT: Normal coronaries. Normal left ventricular function, elevated end-diastolic pressures, consistent with nonischemic cardiomyopathy, recently changed from June where she had a normal left ventricular function, suspect ( ). RECOMMENDATIONS: Continue on medical therapy. If the LV function does not improve, will consider stenting or consider AICD.
[2016-11-13] MEDS: SODIUM CHLORIDE 0.9% 1,000 ML IV SCH ×2 (12:21→23:56)
[2016-11-13] MEDS: CHOLECALCIFEROL 1,000 UNIT TAB PO SCH (12:21)
[2016-11-13] MEDS: B COMPLEX-VIT C-VIT E-ZINC 1 EACH TAB PO SCH (12:22)
[2016-11-13] MEDS: ATORVASTATIN 10 MG TAB PO SCH (20:43)
[2016-11-13] MEDS: DULoxetine HCL 30 MG CAPSULE.DR PO SCH (20:43)
[2016-11-14] MEDS: FUROSEMIDE 10 MG/ML 4 ML VIAL IV SCH ×2 (04:24→16:53)
[2016-11-14] MEDS: SPIRONOLACTONE 25 MG TAB PO SCH (04:59)
[2016-11-14] MEDS: CARVEDILOL 1.563 MG TAB PO SCH (06:37)
[2016-11-14 07:05] LABS: Basophils % (A) 0 %; CHCM 31.6; Eosinophils # (A) 0.1 k/uL (0-0.7); Eosinophils % (A) 2 %; HCT 48.6 % (34.0-46.0); HDW 2.49; HGB 15.3 gm/dL (11.4-16.0); Hypochromasia Slight; Luc % (Auto) 2; Lymphocytes # (A) 1.8 k/uL (1.0-4.8); Lymphocytes % (A) 19 %; MCH 29.1 pg (25.0-35.0); MCHC 31.4 g/dL (31.0-37.0); MCV 92.4 fL (80.0-100.0); Mean Platelet Volume 8.1; Monocytes # (A) 0.5 k/uL (0-1.0); Monocytes % (A) 5 %; Neutrophils % (A) 72 %; RBC 5.26 m/uL (3.80-5.40); RDW 14.4 % (11.5-15.5); WBC 9.7 k/uL (3.8-10.6)
[2016-11-14 07:41] LABS: ALT 41 U/L (9-52); AST 23 U/L (14-36); Alkaline Phosphatase 60 U/L (38-126); Anion Gap 9 mmol/L; Blood Urea Nitrogen 26 mg/dL (7-17); Calcium 9.4 mg/dL (8.4-10.2); Carbon Dioxide 35 mmol/L (22-30); Chloride 100 mmol/L (98-107); Glucose 103 mg/dL (74-99); Non-African American GFR(MDRD) >60 (>60 ml/min/1.73 sqM); Potassium 4.5 mmol/L (3.5-5.1); Sodium 144 mmol/L (137-145); Total Protein 7.6 g/dL (6.3-8.2)
[2016-11-14] MEDS: CHOLECALCIFEROL 1,000 UNIT TAB PO SCH (08:09)
[2016-11-14] MEDS: B COMPLEX-VIT C-VIT E-ZINC 1 EACH TAB PO SCH (08:09)
[2016-11-14] MEDS: FAMOTIDINE 20 MG TAB PO SCH (08:09)
[2016-11-14] MEDS: LISINOPRIL 2.5 MG TAB PO SCH (08:09)
[2016-11-14] MEDS: ASPIRIN 81 MG CHEW PO SCH (08:09)
--- NOTE | 2016-11-14 10:35 | P.PN ---
Subjective Principal diagnosis: A. fib with RVR, acute CHF exacerbation Patient is a 56-year-old female presenting with worsening shortness of breath She was evaluated in the emergency room she had evidence of atrial fibrillation with rapid ventricular response, she was admitted to telemetry floor and was started on IV Cardizem and IV heparin Echocardiogram was done and revealed significantly low ejection fraction of 20- 25% Patient is maintained on IV Lasix she states that she is improving She underwent cardiac catheterization, no significant coronary artery stenosis , no intervention was done. Patient heart rate is still elevated above 100 Still awaiting insurance information in regard to oral anticoagulation Objective - Vital Signs Vital signs: Vital Signs Temp 99 F 11/14/16 08:00 Pulse 109 H 11/14/16 08:00 Resp 19 11/14/16 08:00 BP 138/78 11/14/16 08:00 Pulse Ox 90 L 11/14/16 08:00 Intake & Output 11/13/16 11/14/16 11/14/16 18:59 06:59 18:59 Intake Total 490 180 Balance 490 180 Weight 82.4 kg Intake: IV 50 Oral 440 180 Other: Voiding Method Toilet # Voids 1 2 - Exam In general patient is alert and oriented 3 in no apparent distress HEENT head normocephalic and atraumatic Neck is supple no JVD no goiter no lymphadenopathy Chest exam reveals crackles in both lung azul no wheezing Cardiac exam reveals regular heart sounds no murmurs abdomen is soft nontender no organomegaly Extremity exam reveals no edema no cyanosis or clubbing - Labs CBC & Chem 7: 11/14/16 06:25 11/14/16 06:25 Labs: Abnormal Lab Results - Last 24 Hours (Table) 11/14/16 11/14/16 Range/Units 06:25 06:25 Hct 48.6 H (34.0-46.0) % Carbon Dioxide 35 H (22-30) mmol/L BUN 26 H (7-17) mg/dL Glucose 103 H (74-99) mg/dL Assessment and Plan Plan: 1. Shortness of breath: Possibly related to the atrial fibrillation with rapid ventricular response. Also evidence of acute congestive heart failure exacerbation with significantly depressed ejection fraction to 20-25% 2. New onset of atrial fibrillation with rapid ventricular response: Patient has been started on IV Cardizem drip and IV heparin. Cardiology has been consulted. Awaiting insurance information in regard to oral anticoagulation, heart rate is still elevated cardiology adjusting medications 3. Nicotine dependence: Discussed smoking cessation for greater than 3 minutes. Start patient on nicotine patch 4. History of COPD: Stable. Continue albuterol inhaler as needed 5. Generalized Anxiety disorder and depression: Resume Xanax and Cymbalta 6. Hyperlipidemia resume Lipitor 7. History of obstructive sleep apnea: Needs a new CPAP machine. She has sleep study scheduled for outpatient At this time patient had cardiac catheterization yesterday, no significant coronary artery stenosis no intervention was done Awaiting further adjustment of medications by cardiology in that regard to tachycardia and in that regard to oral anticoagulation Will follow in a.m. possible discharge to home tomorrow
[2016-11-14] MEDS ORDERED: CARVEDILOL 1.563 MG TAB PO ONE (11:32)
--- NOTE | 2016-11-14 12:28 | P.PN ---
Subjective Principal diagnosis: CHF/A. fib This is a pleasant 56-year-old female patient with a past medical history significant for obesity and dyslipidemia as well as COPD who sees Dr. Darnell in the office on a regular basis presented to the hospital not feeling well. The patient was experiencing shortness of breath associated with weakness and dizziness and lightheadedness. The patient was diagnosed was congestive heart failure exacerbation as well as A. fib with RVR. The A. fib seems to be a diagnosis atrial fibrillation. She underwent an echocardiogram which showed impaired LV function which seems to be new to her. Subsequently she underwent a heart catheterization by Dr. Darnell and that showed mild nonobstructive CAD. I'll follow-up with her today she continues to be in A. fib with slightly uncontrolled heart rates. She was receiving Coreg at a small dose and we are going to increase the dose of Coreg. She is not on any anticoagulation and we will start the patient on anticoagulation with one of the new or agents. Objective - Vital Signs Vital signs: Vital Signs Temp 99 F 11/14/16 08:00 Pulse 109 H 11/14/16 08:00 Resp 19 11/14/16 08:00 BP 138/78 11/14/16 08:00 Pulse Ox 90 L 11/14/16 08:00 Intake & Output 11/13/16 11/14/16 11/14/16 18:59 06:59 18:59 Intake Total 490 180 Balance 490 180 Weight 82.4 kg Intake: IV 50 Oral 440 180 Other: Voiding Method Toilet # Voids 1 2 - Constitutional General appearance: Present: no acute distress - Respiratory Respiratory: bilateral: CTA - Cardiovascular Rhythm: irregularly irregular Heart sounds: normal: S1, S2 - Labs CBC & Chem 7: 11/14/16 06:25 11/14/16 06:25 Labs: Abnormal Lab Results - Last 24 Hours (Table) 11/14/16 11/14/16 Range/Units 06:25 06:25 Hct 48.6 H (34.0-46.0) % Carbon Dioxide 35 H (22-30) mmol/L BUN 26 H (7-17) mg/dL Glucose 103 H (74-99) mg/dL Assessment and Plan Plan: Assessment A. fib with RVR and that is a newly diagnosed A. fib Congestive heart failure exacerbation and known if it is due to systolic or diastolic dysfunction Probably COPD exacerbation Significant history of smoking Plan Increase the dose of carvedilol Start anticoagulation Follow-up with the patient
[2016-11-14] MEDS: APIXABAN 5 MG TAB PO SCH ×2 (13:03→21:03)
[2016-11-14] MEDS: SODIUM CHLORIDE 0.9% 1,000 ML IV SCH (13:04)
[2016-11-14 16:57] VITALS: RESP 18
[2016-11-14] MEDS ORDERED: CARVEDILOL 3.125 MG TAB PO ONE (17:30)
[2016-11-14] MEDS: DULoxetine HCL 30 MG CAPSULE.DR PO SCH (21:04)
[2016-11-14] MEDS: ATORVASTATIN 10 MG TAB PO SCH (21:04)
[2016-11-15] MEDS: SODIUM CHLORIDE 0.9% 1,000 ML IV SCH (04:02)
[2016-11-15] MEDS: FUROSEMIDE 10 MG/ML 4 ML VIAL IV SCH ×2 (04:20→15:52)
[2016-11-15 06:51] LABS: Basophils # (A) 0.1 k/uL (0-0.2); Basophils % (A) 0 %; CH 29.3; CHCM 31.4; Eosinophils # (A) 0.3 k/uL (0-0.7); Eosinophils % (A) 2 %; HCT 49.9 % (34.0-46.0); HDW 2.45; Hypochromasia Slight; Luc # (Auto) 0.23; Luc % (Auto) 2; Lymphocytes % (A) 19 %; MCH 28.2 pg (25.0-35.0); MCV 93.9 fL (80.0-100.0); Mean Platelet Volume 8.1; Monocytes # (A) 0.5 k/uL (0-1.0); Monocytes % (A) 4 %; Neutrophils # (A) 7.6 k/uL (1.3-7.7); Neutrophils % (A) 72 %; RBC 5.31 m/uL (3.80-5.40); RDW 14.5 % (11.5-15.5); WBC 10.6 k/uL (3.8-10.6); WBC (Perox) 10.52
[2016-11-15 07:10] LABS: ALT 43 U/L (9-52); AST 28 U/L (14-36); Alkaline Phosphatase 60 U/L (38-126); Anion Gap 10 mmol/L; Blood Urea Nitrogen 28 mg/dL (7-17); Calcium 9.4 mg/dL (8.4-10.2); Carbon Dioxide 27 mmol/L (22-30); Chloride 105 mmol/L (98-107); Glucose 138 mg/dL (74-99); Non-African American GFR(MDRD) >60 (>60 ml/min/1.73 sqM); Potassium 4.6 mmol/L (3.5-5.1); Sodium 142 mmol/L (137-145); Total Bilirubin 0.9 mg/dL (0.2-1.3); Total Protein 7.2 g/dL (6.3-8.2)
[2016-11-15] MEDS ORDERED: CARVEDILOL 3.125 MG TAB PO SCH (08:00)
[2016-11-15] MEDS: APIXABAN 5 MG TAB PO SCH ×2 (09:11→20:15)
[2016-11-15] MEDS: ASPIRIN 81 MG CHEW PO SCH (09:12)
[2016-11-15] MEDS: SPIRONOLACTONE 25 MG TAB PO SCH (09:12)
[2016-11-15] MEDS: LISINOPRIL 2.5 MG TAB PO SCH (09:12)
[2016-11-15] MEDS: FAMOTIDINE 20 MG TAB PO SCH (09:12)
--- NOTE | 2016-11-15 11:48 | P.PN ---
Subjective Principal diagnosis: CHF, Atrial fibrillation Sleep pleasant 56-year-old female with a past medical history significant for obesity and dyslipidemia as well as COPD. She follows with Dr. Darnell in the office. She presented to the hospital with shortness of breath , weakness, dizziness and lightheadedness. She was found to be in congestive heart failure as well as atrial fibrillation with rapid ventricular response. She underwent an echocardiogram that showed impaired LV function which appears to be new from June 2016. She underwent cardiac catheterization by Dr. Darnell that showed mild nonobstructive CAD. Betina and atrial fibrillation with slightly uncontrolled heart rates. Otherwise patient is feeling well, denies any complaints of shortness of breath, dizziness, lightheadedness or weakness. Objective - Vital Signs Vital signs: Vital Signs Temp 98.9 F 11/15/16 09:15 Pulse 140 H 11/15/16 09:15 Resp 18 11/15/16 09:15 BP 121/68 11/15/16 09:15 Pulse Ox 96 11/15/16 09:15 Intake & Output 11/14/16 11/15/16 11/15/16 18:59 06:59 18:59 Intake Total 860 900 260 Balance 860 900 260 Weight 118.7 kg Intake: Intake, IV Titration 200 Amount Sodium Chloride 0.9% 1, 200 000 ml @ 75 mls/hr IV . [id number] [facility] Rx#:[id number] Oral 660 900 260 Other: Voiding Method Toilet Toilet - Exam PHYSICAL EXAMINATION: HEENT: Head is atraumatic, normocephalic. Pupils equal, round. Neck is supple. There is no elevated jugular venous pressure. HEART EXAMINATION: Heart sounds irregular irregular, S1 and S2 normal. No murmur or gallop heard. CHEST EXAMINATION: Lungs are clear to auscultation and precussion. No chest wall tenderness is noted on palpation or with deep breathing. ABDOMEN: Soft, nontender. Bowel sounds are heard. No organomegaly noted. EXTREMITIES: 2+ peripheral pulses with no evidence of peripheral edema and no calf tenderness noted. NEUROLOGIC patient is awake, alert and oriented x3. . - Labs CBC & Chem 7: 11/15/16 06:15 11/15/16 06:15 Labs: Abnormal Lab Results - Last 24 Hours (Table) 11/15/16 11/15/16 Range/Units 06:15 06:15 Hct 49.9 H (34.0-46.0) % MCHC 30.0 L (31.0-37.0) g/dL BUN 28 H (7-17) mg/dL Glucose 138 H (74-99) mg/dL Assessment and Plan Plan: Assessment and plan #1 new onset atrial fibrillation with rapid ventricular response, likely persistent #2 congestive heart failure, systolic, acute laceration #3 COPD #4 obesity #5 history of smoking From cardiac standpoint, we'll stop carvedilol and start the patient on metoprolol tartrate 50 mg by mouth twice a day. Continue anticoagulation. We will continue to follow the patient and provide further recommendations accordingly. ELECTRONIC BENCH TECHNICIAN note has been reviewed, I agree with a documented findings and plan of care. Patient was seen and examined.
[2016-11-15] MEDS: B COMPLEX-VIT C-VIT E-ZINC 1 EACH TAB PO SCH (11:57)
[2016-11-15] MEDS: CHOLECALCIFEROL 1,000 UNIT TAB PO SCH (11:57)
--- NOTE | 2016-11-15 13:51 | P.PN ---
Subjective Principal diagnosis: A. fib with RVR, acute CHF exacerbation Patient is a 56-year-old female presenting with worsening shortness of breath She was evaluated in the emergency room she had evidence of atrial fibrillation with rapid ventricular response, she was admitted to telemetry floor and was started on IV Cardizem and IV heparin, currently she is on Eliquis and metoprolol Echocardiogram was done and revealed significantly low ejection fraction of 20- 25% Patient is maintained on IV Lasix she states that she is improving She underwent cardiac catheterization, no significant coronary artery stenosis , no intervention was done. Patient heart rate is still elevated above 100 Still awaiting insurance information in regard to oral anticoagulation Objective - Vital Signs Vital signs: Vital Signs Temp 98.3 F 11/15/16 11:36 Pulse 108 H 11/15/16 11:36 Resp 18 11/15/16 11:36 BP 106/77 11/15/16 11:36 Pulse Ox 97 11/15/16 11:36 Intake & Output 11/14/16 11/15/16 11/15/16 18:59 06:59 18:59 Intake Total 860 900 260 Balance 860 900 260 Weight 118.7 kg Intake: Intake, IV Titration 200 Amount Sodium Chloride 0.9% 1, 200 000 ml @ 75 mls/hr IV . [id number] [facility] Rx#:[id number] Oral 660 900 260 Other: Voiding Method Toilet Toilet # Voids 2 - Exam In general patient is alert and oriented 3 in no apparent distress HEENT head normocephalic and atraumatic Neck is supple no JVD no goiter no lymphadenopathy Chest exam reveals crackles in both lung azul no wheezing Cardiac exam reveals regular heart sounds no murmurs abdomen is soft nontender no organomegaly Extremity exam reveals no edema no cyanosis or clubbing - Labs CBC & Chem 7: 11/15/16 06:15 11/15/16 06:15 Labs: Abnormal Lab Results - Last 24 Hours (Table) 11/15/16 11/15/16 Range/Units 06:15 06:15 Hct 49.9 H (34.0-46.0) % MCHC 30.0 L (31.0-37.0) g/dL BUN 28 H (7-17) mg/dL Glucose 138 H (74-99) mg/dL Assessment and Plan Plan: 1. Shortness of breath: Possibly related to the atrial fibrillation with rapid ventricular response. Also evidence of acute congestive heart failure exacerbation with significantly depressed ejection fraction to 20-25% 2. New onset of atrial fibrillation with rapid ventricular response: Patient has been started on IV Cardizem drip and IV heparin. Cardiology has been consulted. Awaiting insurance information in regard to oral anticoagulation, heart rate is still elevated cardiology adjusting medications currently patient is on metoprolol and Eliquis 3. Nicotine dependence: Discussed smoking cessation for greater than 3 minutes. Start patient on nicotine patch 4. History of COPD: Stable. Continue albuterol inhaler as needed 5. Generalized Anxiety disorder and depression: Resume Xanax and Cymbalta 6. Hyperlipidemia resume Lipitor 7. History of obstructive sleep apnea: Needs a new CPAP machine. She has sleep study scheduled for outpatient At this time patient had cardiac catheterization , no significant coronary artery stenosis no intervention was done Patient is still having tachycardia medications are being adjusted by cardiology will follow
[2016-11-15] MEDS: ATORVASTATIN 10 MG TAB PO SCH (20:14)
[2016-11-15] MEDS: METOPROLOL TARTRATE 50 MG TAB PO SCH (20:14)
[2016-11-15] MEDS: DULoxetine HCL 30 MG CAPSULE.DR PO SCH (20:15)
[2016-11-16] MEDS: FUROSEMIDE 10 MG/ML 4 ML VIAL IV SCH (03:38)
[2016-11-16] MEDS: FAMOTIDINE 20 MG TAB PO SCH (08:33)
[2016-11-16] MEDS: APIXABAN 5 MG TAB PO SCH ×2 (08:33→17:42)
[2016-11-16] MEDS: ASPIRIN 81 MG CHEW PO SCH (08:33)
[2016-11-16] MEDS: SPIRONOLACTONE 25 MG TAB PO SCH (08:33)
[2016-11-16] MEDS: METOPROLOL TARTRATE 50 MG TAB PO SCH ×2 (08:33→17:42)
[2016-11-16] MEDS: LISINOPRIL 2.5 MG TAB PO SCH (08:34)
--- NOTE | 2016-11-16 11:16 | P.PN ---
Subjective Principal diagnosis: CHF/A. fib This is a pleasant 56-year-old female patient with a past medical history significant for obesity and dyslipidemia as well as COPD who sees Dr. Darnell in the office on a regular basis presented to the hospital not feeling well. The patient was experiencing shortness of breath associated with weakness and dizziness and lightheadedness. The patient was diagnosed was congestive heart failure exacerbation as well as A. fib with RVR. The A. fib seems to be a diagnosis atrial fibrillation. She underwent an echocardiogram which showed impaired LV function which seems to be new to her. Subsequently she underwent a heart catheterization by Dr. Darnell and that showed mild nonobstructive CAD. I'll follow-up with the patient today, heart rate has been better controlled. She is on anticoagulation using Eliquis. From the perivascular standpoint overview, she can be discharged home. Objective - Vital Signs Vital signs: Vital Signs Temp 98.5 F 11/16/16 00:00 Pulse 92 11/16/16 04:00 Resp 18 11/16/16 04:00 BP 108/70 11/16/16 03:55 Pulse Ox 92 L 11/16/16 03:55 Intake & Output 11/15/16 11/16/16 11/16/16 18:59 06:59 18:59 Intake Total 820 250 Balance 820 250 Weight 118.5 kg Intake: IV 0 0.9 Saline 0 Intake, IV Titration 0 Amount Sodium Chloride 0.9% 1, 0 000 ml @ 75 mls/hr IV . [id number] [facility] Rx#:[id number] Sodium Chloride 0.9% 1, 0 000 ml As IV .[facility] Rx#:[id number] Oral 820 250 Other: Voiding Method Toilet Toilet # Voids 2 0 - Constitutional General appearance: Present: no acute distress - Respiratory Respiratory: bilateral: CTA - Cardiovascular Rhythm: irregularly irregular Heart sounds: normal: S1, S2 - Labs CBC & Chem 7: 11/15/16 06:15 11/15/16 06:15 Assessment and Plan Plan: Assessment A. fib with RVR and that is a newly diagnosed A. fib Probably COPD exacerbation Significant history of smoking Plan Continue the current medical treatment was metoprolol Continue anticoagulation She can be discharged home
[2016-11-16] MEDS: CHOLECALCIFEROL 1,000 UNIT TAB PO SCH (12:56)
[2016-11-16] MEDS: B COMPLEX-VIT C-VIT E-ZINC 1 EACH TAB PO SCH (12:56)
--- NOTE | 2016-11-16 17:27 | P.DS ---
Providers Date of admission: 11/10/16 10:44 Expected date of discharge: 11/16/16 Attending physician: Wanda Harmon Primary care physician: Bere Vidal [facility] Course: Diagnosis on discharge #1 New onset atrial fibrillation with rapid ventricular response on admission #2 nonischemic cardiomyopathy #3 underlying history of hypertension #4 underlying history of hyperlipidemia #5 tobacco abuse patient was counseled in length during this admission in regard to smoking cessation counseling more than 10 minutes Patient is a 56-year-old female presenting with worsening shortness of breath She was evaluated in the emergency room she had evidence of atrial fibrillation with rapid ventricular response, she was admitted to telemetry floor and was started on IV Cardizem and IV heparin, Then switched to Eliquis and metoprolol , dose adjusted gradually Echocardiogram was done and revealed significantly low ejection fraction of 20- 25% Patient is maintained on IV Lasix she states that she is improving She underwent cardiac catheterizations that revealed normal coronary arteries but significantly impaired left ventricular function she was diagnosed was nonischemic cardiomyopathy Aldactone and lisinopril well added to her regimen patient was stabilized and was discharged home on 11/16/2016 She will be followed by her primary care physician within one week She will also be followed by cardiology in 1-2 weeks Plan - Discharge Summary Discharge Medication List ALPRAZolam [Xanax] 0.5 mg PO DAILY PRN 11/10/16 [History] Albuterol Inhaler [Ventolin Hfa Inhaler] 2 puff INHALATION RT-Q4H PRN 11/10/16 [ History] Atorvastatin [Lipitor] 10 mg PO HS 11/10/16 [History] Cholecalciferol [Vitamin D3] 1,000 unit PO DAILY 11/10/16 [History] DULoxetine HCL [Cymbalta] 30 mg PO HS 11/10/16 [History] Vitamin B Complex 1 cap PO DAILY 11/10/16 [History] ALPRAZolam [Xanax] 0.25 mg PO Q6HR PRN #0 tab 11/16/16 [Rx] Apixaban [Eliquis] 5 mg PO BID tab 11/16/16 [Rx] Aspirin 81 mg PO DAILY chew 11/16/16 [Rx] Atorvastatin [Lipitor] 10 mg PO HS tab 11/16/16 [Rx] Famotidine [Pepcid] 20 mg PO DAILY tab 11/16/16 [Rx] Furosemide [Lasix] 40 mg PO DAILY tab 11/16/16 [Rx] Lisinopril [Zestril] 2.5 mg PO DAILY tab 11/16/16 [Rx] Metoprolol Tartrate [Lopressor] 50 mg PO BID tab 11/16/16 [Rx] Spironolactone [Aldactone] 25 mg PO DAILY tab 11/16/16 [Rx] Follow up Appointment(s)/Referral(s): Bere Vidal MD [Primary Care Provider] - 1-2 days Steve Madrigal MD [STAFF PHYSICIAN] - 2 Weeks (Please call office and schedule follow up appointment during normal business hours. ) Activity/Diet/Wound Care/Special Instructions: *supervisor quality control Eliquis from [facility] at time of discharge - Free month coupon applied *Prior authorization pending for Eliquis - follow up with your dental prosthetist
[2016-11-16] MEDS: DULoxetine HCL 30 MG CAPSULE.DR PO SCH (17:42)
[2016-11-16] MEDS: ATORVASTATIN 10 MG TAB PO SCH (17:42)
[2016-11-16 18:32] VITALS: BP 101/71; PULSE 100; TEMP 98.6
[2016-11-17] MEDS ORDERED: FUROSEMIDE 40 MG TAB PO SCH (09:00)
== END 2016-11-16 19:32 | disposition home or self-care (01) | DRG 286 ==
LOC: EC 08:15 → 6SEL 10:44
PROVIDERS: ADMIT Internal Medicine; ATTEND Internal Medicine
PROC: B2111ZZ Fluoroscopy of Multiple Coronary Arteries using Low Osmolar Contrast (ICD-10-PCS; 2016-11-13)
PROC: B2151ZZ Fluoroscopy of Left Heart using Low Osmolar Contrast (ICD-10-PCS; 2016-11-13)
PROC: 4A023N7 Measurement of Cardiac Sampling and Pressure, Left Heart, Percutaneous Approach (ICD-10-PCS; principal; 2016-11-13 09:30)
DX: I48.2 Chronic atrial fibrillation (principal); I50.23 Acute on chronic systolic (congestive) heart failure; I42.9 Cardiomyopathy, unspecified; J44.1 Chronic obstructive pulmonary disease with (acute) exacerbation; I48.1 Persistent atrial fibrillation; G47.33 Obstructive sleep apnea (adult) (pediatric); E66.9 Obesity, unspecified; R07.9 Chest pain, unspecified; J98.4 Other disorders of lung; I11.0 Hypertensive heart disease with heart failure; I25.10 Atherosclerotic heart disease of native coronary artery without angina pectoris; E78.5 Hyperlipidemia, unspecified; E78.00 Pure hypercholesterolemia, unspecified; R11.0 Nausea; R53.1 Weakness; R42 Dizziness and giddiness; F41.1 Generalized anxiety disorder; F32.9 Major depressive disorder, single episode, unspecified; F17.210 Nicotine dependence, cigarettes, uncomplicated; Z80.9 Family history of malignant neoplasm, unspecified; Z71.6 Tobacco abuse counseling; Z68.38 Body mass index [BMI] 38.0-38.9, adult; Z98.51 Tubal ligation status; Z79.899 Other long term (current) drug therapy; Z83.79 Family history of other diseases of the digestive system
CPT/HCPCS: 36415; 71020; 80053; 80061; 82550; 82553; 83036; 83735; 83880; 84443; 84484; 85025; 85379; 85610; 85730; 93005; 93306; 93458; 94640; 96365; 96366; 96367; 96376; 99291

== ENCOUNTER → 2016-12-25 | Outpatient (CLI) | payer OTHER ==
--- NOTE | 2016-12-25 16:43 | PN ---
DATE OF SERVICE: 12/25/2016 CONSULTATION/NEW PATIENT EVALUATION 56-year-old lady has been evaluated in the sleep center for obstructive sleep apnea-hypopnea syndrome. HISTORY OF PRESENT ILLNESS/SLEEP-WAKE EVALUATION: Patient had been diagnosed with obstructive sleep apnea institution in another institution in 2007. At that time, was started on CPAP. She used CPAP for about 5 years, but then because of insurance problems, and was not able to get CPAP equipment. SLEEP SCHEDULE: At the present time her sleep schedule is from 10 or 11:00 p.m. until around 3 or 4:00 a.m. FALLING ASLEEP: Sometimes she has problem with falling asleep. She has a TV set in bedroom. DURING SLEEP: Usually sleeps on the side position. She snores, has episodes of stopped breathing during the sleep. Awakenings from sleep up to 4 times with up to 3 episodes of nocturia. DURING THE DAY/WAKE STATE: In the morning, she wakes up tired, falling asleep during the day. Has problems with memory, concentration, irritability, and anxiety. Elton Sleepiness Scale increased to 10. PAST MEDICAL HISTORY: Positive for anxiety, atrial fibrillation, CHF, acid reflux. Chronic obstructive pulmonary disease. According to patient, her ejection fraction recently was in the range of 20 to 25% at the same time, about one year about 55%. PAST SURGICAL HISTORY: Tubal ligation. SOCIAL HISTORY: Positive for smoking 41 pack-years. Recently decrease amount of smoking to about one third of a pack per day. Trying to quit. Alcohol consumption: None. FAMILY HISTORY: Heart problems, arthritis, bronchitis, insomnia, liver problems, anemia, restless legs. REVIEW OF SYSTEMS: Awakenings from sleep, sleepiness during the day, swelling of the legs. During physical exam, lady without distress. VITAL SIGNS: BP 115/77, HR 101, RR 16. Height 5 feet 8-1/2 inches. Weight 265.6. BMI 39.7. Neck 17-1/4 inches in circumference. Temp is 97.5. Oxygen saturation at room air 93%. Oropharynx extremely low position of soft palate. HEART: S1, S2. Irregularly irregular. ABDOMEN: Obese. EXTREMITIES: 1+ bilateral edema. IMPRESSION: 1. Snoring, multiple awakenings from sleep, extremely low position of soft palate, history of obstructive sleep apnea-hypopnea syndrome in the past, sleepiness, obstructive sleep apnea/hypopnea syndrome. Wide neck. 2. Obesity; body mass index 39.7. 3. Atrial fibrillation. 4. Congestive heart failure. 5. History of chronic obstructive pulmonary disease. 6. History of smoking for 41 pack-years. 7. Acid reflux. 8. History of anxiety. 9. Congestive heart failure. According to the patient, ejection fraction in the range of 20 to 25% presently. 10. Swelling of the legs. 11. Status post tubal irrigation. PLAN: 1. Polysomnography for evaluation of patient's breathing during sleep. 2. CPAP/BiPAP titration if sleep study confirms obstructive sleep apnea-hypopnea syndrome. 3. Preferable position during sleep on the side. 4. No driving if patient feels any sleepiness. Patient is aware of civil and criminal liability for unsafe driving. 5. I will see patient for follow-up visit to explain results of the testing and following plan. Thank you very much for referring this patient for consultation. Sincerely, Diego David MD, PhD, FAASM. Diplomat of [place] [employer], Sleep Medicine Board by [place] [employer] [place] [employer] [facility] [place]
== END | disposition home or self-care (01) ==
LOC: SLEEP 13:18
PROVIDERS: ATTEND Internal Medicine
DX: G47.33 Obstructive sleep apnea (adult) (pediatric) (principal); E66.9 Obesity, unspecified; I48.91 Unspecified atrial fibrillation; I50.9 Heart failure, unspecified; K21.9 Gastro-esophageal reflux disease without esophagitis; J44.9 Chronic obstructive pulmonary disease, unspecified; F41.9 Anxiety disorder, unspecified; M79.89 Other specified soft tissue disorders; Z68.39 Body mass index [BMI] 39.0-39.9, adult; Z87.891 Personal history of nicotine dependence; Z98.890 Other specified postprocedural states
CPT/HCPCS: 99211

== ENCOUNTER → 2017-01-23 | Outpatient (CLI) | payer OTHER ==
[2017-01-23 10:29] LABS: Anion Gap 9 mmol/L; Blood Urea Nitrogen 24 mg/dL (7-17); CH 29.4; Carbon Dioxide 30 mmol/L (22-30); Chloride 106 mmol/L (98-107); HCT 48.2 % (34.0-46.0); HDW 2.54; MCH 30.7 pg (25.0-35.0); MCHC 33.1 g/dL (31.0-37.0); MCV 92.5 fL (80.0-100.0); Mean Platelet Volume 8.9; Non-African American GFR(MDRD) 58 (>60 ml/min/1.73 sqM); Potassium 4.9 mmol/L (3.5-5.1); RBC 5.21 m/uL (3.80-5.40); RDW 14.8 % (11.5-15.5); Sodium 145 mmol/L (137-145); WBC 12.2 k/uL (3.8-10.6)
== END ==
LOC: LABPAT 09:39
PROVIDERS: ATTEND Internal Medicine Interventional Cardiology
DX: Z01.812 Encounter for preprocedural laboratory examination (principal); I48.1 Persistent atrial fibrillation
CPT/HCPCS: 80051; 82565; 84520; 85027

== ENCOUNTER 2017-01-26 10:47 | Day surgery (SDC) | payer OTHER ==
[2017-01-23 11:48] VITALS: BMI 39.1
[~2017-01-26 10:47] MED LIST: LACTATED RINGERS 1,000 ML IV SCH; SODIUM CHLORIDE 0.9% 1,000 ML IV SCH
[2017-01-26 11:04] VITALS: TEMP 98.7
[2017-01-26] MEDS ORDERED: SODIUM CHLORIDE 0.9% 500 ML IV ONE (11:40)
[2017-01-26] MEDS ORDERED: PROPOFOL 10 MG/ML 20 ML VIAL IV ONE (12:10)
[2017-01-26] MEDS ORDERED: LIDOCAINE 1% INJ 10MG/ML (20 ML MDV) ONE (12:10)
[2017-01-26] MEDS ORDERED: fentaNYL (PF) 50 MCG/ML 2 ML AMP ONE (12:10)
--- NOTE | 2017-01-26 12:39 | CE ---
DATE OF SERVICE: 01/26/17 PROCEDURE PERFORMED: Cardioversion. PERFORMING PHYSICIAN: Jonatan Talamantes M.D. INDICATIONS: This is a pleasant 56 year old female patient who was diagnosed with A. fib and cardiomyopathy and she was brought today to undergo cardioversion. COMPLICATIONS: None. LEVEL OF SEDATION: Deep sedation was performed with MAKE UP GIRL in the room. PROCEDURE DESCRIPTION: After obtaining informed consent, the patient was brought to the cardioversion suite. The patient converted to normal sinus mechanism using 200 joule and second attempt. No complications were reported. CONCLUSION: Successful cardioversion of atrial fibrillation to normal sinus mechanism using 200 joule on second attempt. MTDD
[2017-01-26 13:13] VITALS: RESP 20
[2017-01-26 14:14] VITALS: PULSE 60
[2017-01-26 14:19] VITALS: BP 120/62
== END 2017-01-26 13:55 | disposition home or self-care (01) ==
LOC: CATHCVL 10:47
PROVIDERS: ATTEND Internal Medicine Interventional Cardiology
DX: I42.8 Other cardiomyopathies (principal); I48.0 Paroxysmal atrial fibrillation; I10 Essential (primary) hypertension; E78.5 Hyperlipidemia, unspecified; E66.3 Overweight; Z68.39 Body mass index [BMI] 39.0-39.9, adult; F17.210 Nicotine dependence, cigarettes, uncomplicated; Z79.01 Long term (current) use of anticoagulants; K21.9 Gastro-esophageal reflux disease without esophagitis; Z79.82 Long term (current) use of aspirin; Z79.899 Other long term (current) drug therapy
CPT/HCPCS: 93005; 92960; J2001; J3010; J2704

== ENCOUNTER 2017-02-04 11:00 | Inpatient (IN) | payer OTHER ==
[2017-02-04] MEDS ORDERED: IPRATROPIUM-ALBUTEROL 3 ML NEB INHALATION STA (11:28)
--- NOTE | 2017-02-04 12:02 | ED ---
General Adult HPI - General Source: patient, RN notes reviewed Mode of arrival: ambulatory Limitations: no limitations <Rolly Park - Last Filed: 02/04/17 13:01> <Dinesh Howell - Last Filed: 02/04/17 13:08> - General Chief complaint: Shortness of Breath Stated complaint: conrad Time Seen by Provider: 02/04/17 11:17 - History of Present Illness Initial comments: This a 56-year-old female presents emergency Department chief complaint shortness of breath 2 days. Patient states she's had increased shortness breath when she lays down. Patient states she has wrist been diagnosed with CHF , A. fib. Patient states that she does have mild COPD and continues to smoke. Patient states she has a cough but denies any cold like symptoms denies runny nose, fever, chills. Patient states he did have some diaphoretic episodes at nighttime. Patient denies any nausea vomiting. Denies any abdominal discomfort. Denies any chest pain, neck pain. (Rolly Park) - Related Data Home Medications Medication Instructions Recorded Confirmed Albuterol Inhaler [Ventolin Hfa 2 puff INHALATION RT-Q4H PRN 11/10/16 02/04/17 Inhaler] Cholecalciferol [Vitamin D3] 1,000 unit PO DAILY 11/10/16 02/04/17 DULoxetine HCL [Cymbalta] 30 mg PO HS 11/10/16 02/04/17 Vitamin B Complex 1 cap PO DAILY 11/10/16 02/04/17 Previous Rx's Medication Instructions Recorded ALPRAZolam [Xanax] 0.25 mg PO Q6HR PRN #0 tab 11/16/16 Apixaban [Eliquis] 5 mg PO BID tab 11/16/16 Aspirin 81 mg PO DAILY chew 11/16/16 Atorvastatin [Lipitor] 10 mg PO HS tab 11/16/16 Famotidine [Pepcid] 20 mg PO DAILY tab 11/16/16 Furosemide [Lasix] 40 mg PO DAILY tab 11/16/16 Lisinopril [Zestril] 2.5 mg PO DAILY tab 11/16/16 Metoprolol Tartrate [Lopressor] 50 mg PO BID tab 11/16/16 Spironolactone [Aldactone] 25 mg PO DAILY tab 05/07/17 Allergies Allergy/AdvReac Type Severity Reaction Status Date / Time No Known Allergies Allergy Verified 02/04/17 11:26 Review of Systems ROS Other: All systems not noted in ROS Statement are negative. <Rolly Park - Last Filed: 02/04/17 13:01> ROS Other: All systems not noted in ROS Statement are negative. <DanteDinesh - Last Filed: 02/04/17 13:08> ROS Statement: Those systems with pertinent positive or pertinent negative responses have been documented in the HPI. Past Medical History Past Medical History: Atrial Fibrillation, COPD, Hyperlipidemia, Sleep Apnea/ CPAP/BIPAP Additional Past Medical History / Comment(s): restrictive lung disease, occ migraines, no cpap used currently, History of Any Multi-Drug Resistant Organisms: None Reported Past Surgical History: Heart Catheterization, Tubal Ligation Past Anesthesia/Blood Transfusion Reactions: No Reported Reaction Past Psychological History: Anxiety Smoking Status: Current every day smoker Past Alcohol Use History: None Reported Past Drug Use History: None Reported - Past Family History Mother Family Medical History: Deep Vein Thrombosis (DVT) Additional Family Medical History / Comment(s): Mother had cirrhosis. She at the age of 71yrs. Father Family Medical History: Cancer Additional Family Medical History / Comment(s): Father had mesothelioma. <KatjaRolly newby - Last Filed: 02/04/17 13:01> General Exam Limitations: no limitations General appearance: alert, in no apparent distress Head exam: Present: atraumatic, normocephalic, normal inspection Eye exam: Present: normal appearance, PERRL, EOMI. Absent: scleral icterus, conjunctival injection, periorbital swelling ENT exam: Present: normal exam, mucous membranes moist Neck exam: Present: normal inspection, full ROM. Absent: tenderness, meningismus, lymphadenopathy Respiratory exam: Present: wheezes. Absent: normal lung sounds bilaterally, respiratory distress, rales, rhonchi, stridor Cardiovascular Exam: Present: regular rate, normal rhythm, normal heart sounds. Absent: systolic murmur, diastolic murmur, rubs, gallop, clicks GI/Abdominal exam: Present: soft, normal bowel sounds. Absent: distended, tenderness, guarding, rebound, rigid Neurological exam: Present: alert, oriented X3, CN II-XII intact. Absent: motor sensory deficit Skin exam: Present: warm, dry, intact, normal color. Absent: rash <Rolly Park Daly - Last Filed: 02/04/17 13:01> Course <[place]olly Park - Last Filed: 02/04/17 13:01> <Dinesh Howell - Last Filed: 02/04/17 13:08> Vital Signs 02/04/17 02/04/17 02/04/17 11:06 11:59 12:09 Temperature 98.7 F Pulse Rate 97 98 104 H Respiratory 20 20 Rate Blood Pressure 111/83 O2 Sat by Pulse 97 Oximetry - Reevaluation(s) Reevaluation #1: 02/04/17 13:08 I did personally a [id number] evaluation the patient did discuss the findings with her and her family members. Patient does demonstrate diminished breath sounds with rales at bases especially on the right. X-ray shows evidence a limited right lower lobe infiltrative believe this is on the basis of congestive failure. Patient's BNP is markedly elevated. I did discuss case with Dr. Harmon. The patient will be admitted with consultation by Dr. Olvera and pulmonary medicine, Dr. Zavala. Additionally the patient is a smoker we did a long discussion regarding smoking cessation and the benefits thereof. This lasted 3.1 minutes. (Dinesh Howell) EKG Findings - EKG Comments: EKG Findings:: EKG performed at 11:58 atrial fibrillation rate of 97 QS duration 90 QT/QTC 360/457 EKG prior showed A. fib <Rolly Park Daly - Last Filed: 02/04/17 13:01> Medical Decision Making - Lab Data Result diagrams: 02/04/17 11:55 02/04/17 11:55 <Rolly Park - Last Filed: 02/04/17 13:01> - Lab Data Result diagrams: 02/04/17 11:55 02/04/17 11:55 <Dinesh Howell - Last Filed: 02/04/17 13:08> - Lab Data Lab Results 02/04/17 02/04/17 02/04/17 Range/Units 11:55 11:55 11:55 WBC 10.2 (3.8-10.6) k/uL RBC 5.03 (3.80-5.40) m/uL Hgb 15.1 (11.4-16.0) gm/dL Hct 46.8 H (34.0-46.0) % MCV 93.2 (80.0-100.0) fL MCH 30.1 (25.0-35.0) pg MCHC 32.3 (31.0-37.0) g/dL RDW 15.5 (11.5-15.5) % Plt Count 246 (150-450) k/uL Neutrophils % 69 % Lymphocytes % 21 % Monocytes % 5 % Eosinophils % 2 % Basophils % 1 % Neutrophils # 7.0 (1.3-7.7) k/uL Lymphocytes # 2.2 (1.0-4.8) k/uL Monocytes # 0.5 (0-1.0) k/uL Eosinophils # 0.2 (0-0.7) k/uL Basophils # 0.1 (0-0.2) k/uL PT (9.0-12.0) sec INR (<1.2) APTT (22.0-30.0) sec Sodium 144 (137-145) mmol/L Potassium 4.8 (3.5-5.1) mmol/L Chloride 107 (98-107) mmol/L Carbon Dioxide 27 (22-30) mmol/L Anion Gap 10 mmol/L BUN 19 H (7-17) mg/dL Creatinine 0.77 (0.52-1.04) mg/dL Est GFR (MDRD) Af Amer >60 (>60 ml/min/1.73 sqM) Est GFR (MDRD) Non-Af >60 (>60 ml/min/1.73 sqM) Glucose 100 H (74-99) mg/dL Calcium 9.4 (8.4-10.2) mg/dL Magnesium 2.0 (1.6-2.3) mg/dL Total Bilirubin 0.8 (0.2-1.3) mg/dL AST 24 (14-36) U/L ALT 42 (9-52) U/L Alkaline Phosphatase 66 (38-126) U/L Total Creatine Kinase 59 (30-135) U/L CK-MB (CK-2) 2.9 H* (0.0-2.4) ng/mL CK-MB (CK-2) Rel Index 4.9 Troponin I 0.013 (0.000-0.034) ng/mL NT-Pro-B Natriuret Pep pg/mL Total Protein 6.9 (6.3-8.2) g/dL Albumin 3.8 (3.5-5.0) g/dL 02/04/17 02/04/17 Range/Units 11:55 11:55 WBC (3.8-10.6) k/uL RBC (3.80-5.40) m/uL Hgb (11.4-16.0) gm/dL Hct (34.0-46.0) % MCV (80.0-100.0) fL MCH (25.0-35.0) pg MCHC (31.0-37.0) g/dL RDW (11.5-15.5) % Plt Count (150-450) k/uL Neutrophils % % Lymphocytes % % Monocytes % % Eosinophils % % Basophils % % Neutrophils # (1.3-7.7) k/uL Lymphocytes # (1.0-4.8) k/uL Monocytes # (0-1.0) k/uL Eosinophils # (0-0.7) k/uL Basophils # (0-0.2) k/uL PT 10.6 (9.0-12.0) sec INR 1.0 (<1.2) APTT 23.9 (22.0-30.0) sec Sodium (137-145) mmol/L Potassium (3.5-5.1) mmol/L Chloride (98-107) mmol/L Carbon Dioxide (22-30) mmol/L Anion Gap mmol/L BUN (7-17) mg/dL Creatinine (0.52-1.04) mg/dL Est GFR (MDRD) Af Amer (>60 ml/min/1.73 sqM) Est GFR (MDRD) Non-Af (>60 ml/min/1.73 sqM) Glucose (74-99) mg/dL Calcium (8.4-10.2) mg/dL Magnesium (1.6-2.3) mg/dL Total Bilirubin (0.2-1.3) mg/dL AST (14-36) U/L ALT (9-52) U/L Alkaline Phosphatase (38-126) U/L Total Creatine Kinase (30-135) U/L CK-MB (CK-2) (0.0-2.4) ng/mL CK-MB (CK-2) Rel Index Troponin I (0.000-0.034) ng/mL NT-Pro-B Natriuret Pep 5520 pg/mL Total Protein (6.3-8.2) g/dL Albumin (3.5-5.0) g/dL Disposition <[place] - Last Filed: 02/04/17 13:01> <Dinesh Howell - Last Filed: 02/04/17 13:08> Clinical Impression: CHF (congestive heart failure), Afib, COPD (chronic obstructive pulmonary disease) Disposition: ADMITTED IP TO THIS HOSP Condition: Fair Referrals: Bere Vidal MD [Primary Care Provider] - 1-2 days
[2017-02-04 12:13] LABS: Basophils # (A) 0.1 k/uL (0-0.2); Basophils % (A) 1 %; CHCM 32.4; Eosinophils # (A) 0.2 k/uL (0-0.7); Eosinophils % (A) 2 %; HCT 46.8 % (34.0-46.0); HDW 2.56; HGB 15.1 gm/dL (11.4-16.0); Luc # (Auto) 0.15; Luc % (Auto) 2; Lymphocytes # (A) 2.2 k/uL (1.0-4.8); Lymphocytes % (A) 21 %; MCH 30.1 pg (25.0-35.0); MCHC 32.3 g/dL (31.0-37.0); MCV 93.2 fL (80.0-100.0); Mean Platelet Volume 9.4; Monocytes # (A) 0.5 k/uL (0-1.0); Monocytes % (A) 5 %; Neutrophils % (A) 69 %; RBC 5.03 m/uL (3.80-5.40); RDW 15.5 % (11.5-15.5); WBC 10.2 k/uL (3.8-10.6); WBC (Perox) 9.38
[2017-02-04 12:22] LABS: ALT 42 U/L (9-52); AST 24 U/L (14-36); Alkaline Phosphatase 66 U/L (38-126); Anion Gap 10 mmol/L; Blood Urea Nitrogen 19 mg/dL (7-17); Calcium 9.4 mg/dL (8.4-10.2); Carbon Dioxide 27 mmol/L (22-30); Chloride 107 mmol/L (98-107); Glucose 100 mg/dL (74-99); Non-African American GFR(MDRD) >60 (>60 ml/min/1.73 sqM); Potassium 4.8 mmol/L (3.5-5.1); Sodium 144 mmol/L (137-145); Total Bilirubin 0.8 mg/dL (0.2-1.3); Total Protein 6.9 g/dL (6.3-8.2)
[2017-02-04 12:26] LABS: Partial Thromboplastin Time 23.9 sec (22.0-30.0); Prothrombin Time 10.6 sec (9.0-12.0)
--- NOTE | 2017-02-04 12:34 | XR ---
EXAMINATION TYPE: XR chest 2V DATE OF EXAM: 02/04/2017 HISTORY: difficulty breathing. REFERENCE: Previous study dated 11/10/2016. FINDINGS: The heart is enlarged. There is a vague right lower lobe infiltrate. No pleural fluid is se en. IMPRESSION: 1. CARDIOMEGALY. 2. LIMITED RIGHT LOWER LOBE INFILTRATE.
[2017-02-04 12:46] LABS: Troponin I 0.013 ng/mL (0.000-0.034)
[2017-02-04 12:49] LABS: Creatine Kinase MB 2.9 ng/mL (0.0-2.4)
[2017-02-04] MEDS ORDERED: FUROSEMIDE 10 MG/ML 4 ML VIAL IV STA (13:03)
[2017-02-04] MEDS ORDERED: ALPRAZolam 0.25 MG TAB PO PRN (13:04)
[2017-02-04] MEDS ORDERED: NITROGLYCERIN OINT 1 INCH/GM PACKET TOPICAL STA (13:05)
--- NOTE | 2017-02-04 17:51 | P.HPIM ---
History of Present Illness H&P Date: 02/04/17 Chief Complaint: Shortness of breath Patient is a 56-year-old female patient of Dr. Malena Vidal who presented to [facility] emergency room with a chief complaint of shortness of breath. Patient states that for the last week she has been having increasing difficulty with breathing, she was having episodes of severe shortness of breath when laying down where she had to sit up to catch her breath. Patient was admitted to my service in November 2016 at that time she was diagnosed with atrial fibrillation and congestive heart failure her ejection fraction was down to 20-25% she underwent cardiac catheterization that revealed normal coronary arteries she was diagnosed with nonischemic cardiomyopathy she has been followed by Dr. Reyes since. During the last admission patient was advised to have a sleep study, she states that she has that scheduled for next week. Patient still is smoking a few cigarettes per day Past Medical History Past Medical History: Atrial Fibrillation, COPD, Hyperlipidemia, Sleep Apnea/ CPAP/BIPAP Additional Past Medical History / Comment(s): Morbid obesity, obstructive sleep apnea, cardiomyopathy nonischemic with ejection fraction of less than 20%, chronic atrial fibrillation, hyperlipidemia, hypertension, chronic lower extremity edema, acid reflux History of Any Multi-Drug Resistant Organisms: None Reported Past Surgical History: Heart Catheterization, Tubal Ligation Additional Past Surgical History / Comment(s): cardioversion for afib 01/26/17 Past Anesthesia/Blood Transfusion Reactions: No Reported Reaction Past Psychological History: Anxiety Smoking Status: Current every day smoker Past Alcohol Use History: None Reported Additional Past Alcohol Use History / Comment(s): Pt started smoking in 1974 and was 1 ppd smoker. Recently she has cut back to 3 cigs a day. Past Drug Use History: None Reported - Past Family History Mother Family Medical History: Deep Vein Thrombosis (DVT) Additional Family Medical History / Comment(s): Mother had cirrhosis. She at the age of 71yrs. Father Family Medical History: Cancer Additional Family Medical History / Comment(s): Father had mesothelioma. Medications and Allergies Home Medications Medication Instructions Recorded Confirmed Type Albuterol Inhaler [Ventolin Hfa 2 puff INHALATION RT-Q4H PRN 11/10/16 02/04/17 History Inhaler] Cholecalciferol [Vitamin D3] 1,000 unit PO DAILY 11/10/16 02/04/17 History DULoxetine HCL [Cymbalta] 30 mg PO HS 11/10/16 02/04/17 History Vitamin B Complex 1 cap PO DAILY 11/10/16 02/04/17 History Allergies Allergy/AdvReac Type Severity Reaction Status Date / Time No Known Allergies Allergy Verified 02/04/17 11:26 Physical Exam Vitals: Vital Signs Temp Pulse Pulse Resp BP BP Pulse Ox 02/04/17 14:51 97.1 F L 101 H 18 131/96 96 02/04/17 13:32 98.6 F 106 H 19 140/76 98 02/04/17 13:07 98.2 F 120 H 14 127/65 98 02/04/17 12:35 100 20 121/80 98 02/04/17 12:09 104 H 02/04/17 12:05 110 H 20 146/74 99 02/04/17 11:59 98 20 02/04/17 11:06 98.7 F 97 20 111/83 97 Intake and Output 02/04/17 02/04/17 02/04/17 06:59 14:59 22:59 Other: Weight 118.841 kg Patient Weight 02/05/17 06:59 Weight 118.841 kg In general patient is alert and oriented 3 in no apparent distress HEENT head normocephalic and atraumatic Neck is supple no JVD no goiter no lymphadenopathy Chest exam reveals few bilateral crackles no wheezing Cardiac exam reveals regular heart sounds S1 and S2 no gallops no murmurs Abdomen is soft nontender no organomegaly with normal bowel sounds Extremity exam reveals no edema no cyanosis or clubbing Results CBC & Chem 7: 02/04/17 11:55 02/04/17 11:55 Labs: Abnormal Lab Results - Last 24 Hours (Table) 02/04/17 02/04/17 02/04/17 Range/Units 11:55 11:55 11:55 Hct 46.8 H (34.0-46.0) % BUN 19 H (7-17) mg/dL Glucose 100 H (74-99) mg/dL CK-MB (CK-2) 2.9 H* (0.0-2.4) ng/mL Thrombosis Risk Factor Assmnt - Choose All That Apply Each Factor Represents 1 point: Abnormal pulmonary function (COPD), Age 41-60 years, Obesity (BMI >25) Other congenital or acquired thrombophilia - If yes, enter type in comment: No Thrombosis Risk Factor Assessment Total Risk Factor Score: 3 Thrombosis Risk Factor Assessment Level: Moderate Risk Assessment and Plan Plan: #1 acute congestive heart failure exacerbation, patient has a known history of ischemic cardiomyopathy diagnosed in November of this he #2 underlying history of atrial fibrillation heart rate around 100 #3 underlying history of chronic obstructive pulmonary disease #4 ongoing tobacco abuse #5 possible sleep apnea awaiting sleep study in the next week or so At this time continue with IV Lasix 40 mg every 12 hours will recheck chest x- ray in a.m. Will recheck labs in a.m. Cardiology consultation and pulmonary consultation has been requested
[2017-02-04] MEDS: ATORVASTATIN 10 MG TAB PO SCH (21:08)
[2017-02-04] MEDS: METOPROLOL TARTRATE 50 MG TAB PO SCH (21:08)
[2017-02-04] MEDS: APIXABAN 5 MG TAB PO SCH (21:08)
[2017-02-04] MEDS: FUROSEMIDE 10 MG/ML 4 ML VIAL IV SCH (21:08)
[2017-02-04] MEDS: DULoxetine HCL 30 MG CAPSULE.DR PO SCH (21:08)
[2017-02-05 08:03] LABS: Basophils % (A) 1 %; Eosinophils # (A) 0.2 k/uL (0-0.7); Eosinophils % (A) 3 %; HDW 2.52; HGB 15.7 gm/dL (11.4-16.0); Luc % (Auto) 1; Lymphocytes # (A) 1.8 k/uL (1.0-4.8); Lymphocytes % (A) 21 %; MCH 30.1 pg (25.0-35.0); MCV 94.2 fL (80.0-100.0); Mean Platelet Volume 9.1; Monocytes # (A) 0.4 k/uL (0-1.0); Monocytes % (A) 4 %; Neutrophils % (A) 70 %; RDW 15.5 % (11.5-15.5); WBC 8.5 k/uL (3.8-10.6); WBC (Perox) 8.47
[2017-02-05 08:26] LABS: ALT 42 U/L (9-52); AST 22 U/L (14-36); Alkaline Phosphatase 63 U/L (38-126); Anion Gap 7 mmol/L; Blood Urea Nitrogen 22 mg/dL (7-17); Calcium 9.3 mg/dL (8.4-10.2); Carbon Dioxide 36 mmol/L (22-30); Chloride 101 mmol/L (98-107); Glucose 108 mg/dL (74-99); Non-African American GFR(MDRD) >60 (>60 ml/min/1.73 sqM); Potassium 4.5 mmol/L (3.5-5.1); Sodium 144 mmol/L (137-145); Total Bilirubin 0.7 mg/dL (0.2-1.3); Total Protein 6.9 g/dL (6.3-8.2)
[2017-02-05] MEDS: FAMOTIDINE 20 MG TAB PO SCH (08:48)
[2017-02-05] MEDS: METOPROLOL TARTRATE 50 MG TAB PO SCH ×2 (08:48→21:24)
[2017-02-05] MEDS: ASPIRIN 81 MG CHEW PO SCH (08:48)
[2017-02-05] MEDS: APIXABAN 5 MG TAB PO SCH ×2 (08:48→21:23)
[2017-02-05] MEDS: FUROSEMIDE 10 MG/ML 4 ML VIAL IV SCH ×2 (08:49→21:23)
--- NOTE | 2017-02-05 08:58 | XR ---
EXAMINATION TYPE: XR chest 2V DATE OF EXAM: 02/05/2017 COMPARISON: Prior chest x-ray 02/04/2017 HISTORY: Dyspnea, atrial fibrillation TECHNIQUE: Frontal and lateral views of the chest are obtained. FINDINGS: The heart remains enlarged. Prominent lung volumes suggests underlying COPD. No pneumothor ax, airspace disease, or pleural effusion evident. There are overlying cardiac leads. IMPRESSION: Cardiomegaly.
[2017-02-05] MEDS ORDERED: LISINOPRIL 2.5 MG TAB PO SCH (09:00)
--- NOTE | 2017-02-05 10:00 | P.PN ---
Subjective Patient is a 56-year-old female patient of Dr. Malena Vidal who presented to [facility] emergency room with a chief complaint of shortness of breath. Patient states that for the last week she has been having increasing difficulty with breathing, she was having episodes of severe shortness of breath when laying down where she had to sit up to catch her breath. Patient was admitted to my service in November 2016 at that time she was diagnosed with atrial fibrillation and congestive heart failure her ejection fraction was down to 20-25% she underwent cardiac catheterization that revealed normal coronary arteries she was diagnosed with nonischemic cardiomyopathy she has been followed by Dr. Reyes since. During the last admission patient was advised to have a sleep study, she states that she has that scheduled for next week. Patient still is smoking a few cigarettes per day 02/05/2017 patient reports some improvement in her shortness of breath after starting on IV Lasix. She has not required any oxygen since being on the floor. Awaiting cardiology and pulmonary service consult. Chest x-ray for today shows cardiomegaly. He does admit to a cough with whitish sputum. She also noted decrease in her edema of the lower extremities. Objective - Vital Signs Vital signs: Vital Signs Temp 99.4 F 02/05/17 07:00 Pulse 103 H 02/05/17 07:00 Resp 18 02/05/17 07:00 BP 143/95 02/05/17 07:00 Pulse Ox 93 L 02/05/17 08:17 Intake & Output 02/04/17 02/05/17 02/05/17 18:59 06:59 18:59 Intake Total 658 Balance 658 Weight 118.841 kg 117.962 kg Intake: Oral 658 Other: # Voids 2 - Exam Head normocephalic Neck supple Lungs coarse breath sounds that improve with cough. No crackles. Heart irregular. A. fib on monitor. Rate controlled. Abdomen is soft nontender nondistended positive bowel sounds no hepatosplenomegaly Extremities no edema Neuro alert and orientated to 3 - Labs CBC & Chem 7: 02/05/17 07:49 02/05/17 07:49 Labs: Abnormal Lab Results - Last 24 Hours (Table) 02/04/17 02/04/17 02/04/17 Range/Units 11:55 11:55 11:55 Hct 46.8 H (34.0-46.0) % Carbon Dioxide (22-30) mmol/L BUN 19 H (7-17) mg/dL Glucose 100 H (74-99) mg/dL CK-MB (CK-2) 2.9 H* (0.0-2.4) ng/mL 02/05/17 02/05/17 Range/Units 07:49 07:49 Hct 49.0 H (34.0-46.0) % Carbon Dioxide 36 H (22-30) mmol/L BUN 22 H (7-17) mg/dL Glucose 108 H (74-99) mg/dL CK-MB (CK-2) (0.0-2.4) ng/mL Assessment and Plan Plan: 1. Acute on chronic systolic CHF exacerbation: Her EF in November was around 20-25% . Patient reports a recent echo done in the cardiology office. Elevated BNP on admission. Cardiology has been consulted. Continue IV Lasix 40 mg every 12 hours. 2. Chronic atrial fibrillation: Rate controlled. Continue Eliquis for anticoagulation. Continue metoprolol for rate control 3. Possible sleep apnea: Patient has a scheduled sleep study in the next week area pulmonary service has been consulted 4. Chronic obstructive pulmonary disease with no evidence of exacerbation 5. History of nonischemic cardiomyopathy with EF of 20-25% 6. Hyperlipidemia continue with the Lipitor GI prophylaxis Pepcid and DVT prophylaxis Eliquis I performed an examination of the patient and discussed their management with the physician Wood Patternmaker. I have reviewed the Physician Wood Patternmaker's notes and agree with the documented findings and plan of care
[2017-02-05 10:23] VITALS: BMI 38.4
--- NOTE | 2017-02-05 13:02 | P.CNPUL ---
History of Present Illness Consult date: 02/04/17 Reason for consult: dyspnea History of present illness: 56-year-old female patient presented emergency department because of worsening shortness of breath of 2 days' duration. She had exertional dyspnea and orthopnea. She is known history of nonischemic cardiomyopathy. She has an ejection fraction of less than 20% along with history of chronic atrial fibrillation. The patient has had previous cardiac catheterization that showed normal coronaries. She is morbidly obese with a BMI of 38.7. She also has hypertension, hyperlipidemia as comorbid conditions. The patient also stated that she had a cough but she denied any cold-like symptoms or symptoms of pneumonia. No pleurisy. No hemoptysis. Chest x-ray shows cardiomegaly and the proBNP level was 5520. No significant troponin elevation. EKG showing atrial fibrillation without any acute ST segment changes, elevation or depressions. Patient is currently on Lasix 40 mg IV push every 12 hours. Outpatient medication will resumed including metoprolol 50 minutes by mouth twice a day, this is a 2.5 m by mouth daily as she is also on long-term anticoagulation with Apixaban this patient also has history of obstructive sleep apnea that was diagnosed back in 2007. She is CPAP therapy for around 5 years and later on due to insurance problems she was unable to keep up with her CPAP treatment. She was recently seen at the sleep Center for reevaluation and repeat investigation was requested. Review of Systems Constitutional: Reports fatigue, Reports lethargy, Reports weakness Eyes: denies blurred vision, denies bulging eye, denies decreased vision Ears: deny: decreased hearing, ear discharge, earache Ears, nose, mouth and throat: Denies headache, Denies sore throat Cardiovascular: Reports dyspnea on exertion, Reports irregular heart beat, Reports orthopnea, Reports palpitations, Reports shortness of breath Respiratory: Reports dyspnea Gastrointestinal: Denies abdominal pain, Denies diarrhea, Denies nausea, Denies vomiting Genitourinary: Denies dysuria, Denies hematuria Musculoskeletal: Denies myalgias Musculoskeletal: bilateral: ankle swelling, absent: ankle pain, ankle stiffness Integumentary: Denies pruritus, Denies rash Neurological: Denies numbness, Denies weakness Psychiatric: Denies anxiety, Denies depression Endocrine: Denies fatigue, Denies weight change Past Medical History Past Medical History: Atrial Fibrillation, COPD, Hyperlipidemia, Sleep Apnea/ CPAP/BIPAP Additional Past Medical History / Comment(s): Morbid obesity, obstructive sleep apnea, cardiomyopathy nonischemic with ejection fraction of less than 20%, chronic atrial fibrillation, hyperlipidemia, hypertension, chronic lower extremity edema, acid reflux History of Any Multi-Drug Resistant Organisms: None Reported Past Surgical History: Heart Catheterization, Tubal Ligation Additional Past Surgical History / Comment(s): cardioversion for afib 01/26/17 Past Anesthesia/Blood Transfusion Reactions: No Reported Reaction Past Psychological History: Anxiety Smoking Status: Current every day smoker Past Alcohol Use History: None Reported Additional Past Alcohol Use History / Comment(s): Pt started smoking in 1974 and was 1 ppd smoker. Recently she has cut back to 3 cigs a day. Past Drug Use History: None Reported - Past Family History Mother Family Medical History: Deep Vein Thrombosis (DVT) Additional Family Medical History / Comment(s): Mother had cirrhosis. She at the age of 71yrs. Father Family Medical History: Cancer Additional Family Medical History / Comment(s): Father had mesothelioma. Medications and Allergies Home Medications Medication Instructions Recorded Confirmed Type Albuterol Inhaler [Ventolin Hfa 2 puff INHALATION RT-Q4H PRN 11/10/16 02/04/17 History Inhaler] Cholecalciferol [Vitamin D3] 1,000 unit PO DAILY 11/10/16 02/04/17 History DULoxetine HCL [Cymbalta] 30 mg PO HS 11/10/16 02/04/17 History Vitamin B Complex 1 cap PO DAILY 11/10/16 02/04/17 History Allergies Allergy/AdvReac Type Severity Reaction Status Date / Time No Known Allergies Allergy Verified 02/04/17 11:26 Physical Exam Vitals: Vital Signs Temp Pulse Pulse Resp BP BP Pulse Ox 02/04/17 14:51 97.1 F L 101 H 18 131/96 96 02/04/17 13:32 98.6 F 106 H 19 140/76 98 02/04/17 13:07 98.2 F 120 H 14 127/65 98 02/04/17 12:35 100 20 121/80 98 02/04/17 12:09 104 H 02/04/17 12:05 110 H 20 146/74 99 02/04/17 11:59 98 20 02/04/17 11:06 98.7 F 97 20 111/83 97 Intake and Output 02/04/17 02/04/17 02/04/17 06:59 14:59 22:59 Other: Weight 118.841 kg Patient Weight 02/05/17 06:59 Weight 118.841 kg Obese, comfortable likely distress.Head exam was generally normal. There was no scleral icterus or corneal arcus. Mucous membranes were moist. Neck is short and supple and the patient is crowding of the posterior oropharynx. Positive JVDs can be seen bilaterally. Lung sounds are diminished and there is some few bibasilar crackles in lung bases along with some scattered respiratory wheezes. Heart sounds are irregular, positive S1-S2 and there is no significant murmurs appreciated. Abdomen is obese soft nontender and organs cannot be accurately palpated. Extremities show +1 pitting edema there is no cyanosis or clubbing at this point. Results - Laboratory Findings CBC and BMP: 02/04/17 11:55 02/04/17 11:55 PT/INR, D-dimer PT 10.6 sec (9.0-12.0) 02/04/17 11:55 INR 1.0 (<1.2) 02/04/17 11:55 Abnormal lab findings: Abnormal Labs 02/04/17 02/04/17 02/04/17 11:55 11:55 11:55 Hct 46.8 H BUN 19 H Glucose 100 H CK-MB (CK-2) 2.9 H* - Diagnostic Findings Chest x-ray: image reviewed Assessment and Plan Plan: Assessment 1 acute CHF exacerbation with secondary shortness of breath 2 nonischemic artery myopathy with ejection fraction of 20% 3 chronic atrial fibrillation rate controlled and maintained on long-term anticoagulation 4 obstructive sleep apnea currently not receiving any CPAP treatment 5 smoker 6 hypertension 7 hyperlipidemia 8 acid reflux 9 generalized anxiety disorder 10 obesity with a BMI of 39. Plan Agree on the current treatment. Sleep evaluation today later stage on outpatient basis regarding symptom with it obstructive sleep apnea.
--- NOTE | 2017-02-05 13:04 | P.PN ---
Subjective 56-year-old female patient presented emergency department because of worsening shortness of breath of 2 days' duration. She had exertional dyspnea and orthopnea. She is known history of nonischemic cardiomyopathy. She has an ejection fraction of less than 20% along with history of chronic atrial fibrillation. The patient has had previous cardiac catheterization that showed normal coronaries. She is morbidly obese with a BMI of 38.7. She also has hypertension, hyperlipidemia as comorbid conditions. The patient also stated that she had a cough but she denied any cold-like symptoms or symptoms of pneumonia. No pleurisy. No hemoptysis. Chest x-ray shows cardiomegaly and the proBNP level was 5520. No significant troponin elevation. EKG showing atrial fibrillation without any acute ST segment changes, elevation or depressions. Patient is currently on Lasix 40 mg IV push every 12 hours. Outpatient medication will resumed including metoprolol 50 minutes by mouth twice a day, this is a 2.5 m by mouth daily as she is also on long-term anticoagulation with Apixaban this patient also has history of obstructive sleep apnea that was diagnosed back in 2007. She is CPAP therapy for around 5 years and later on due to insurance problems she was unable to keep up with her CPAP treatment. She was recently seen at the sleep Center for reevaluation and repeat investigation was requested. On 02/05/2017, the patient is feeling much better. Less short of breath. Edema in lower extremity is improved considerably. She has responded nicely to diuretics. No cough or sputum production. No chest pain. She has an upcoming sleep evaluation including a polysomnography to be related for obstructive sleep apnea. No leukocytosis at this point. Renal function is within normal limits. Cardiac enzymes are all negative. Objective - Vital Signs Vital signs: Vital Signs Temp 99.4 F 02/05/17 07:00 Pulse 103 H 02/05/17 07:00 Resp 18 02/05/17 07:00 BP 143/95 02/05/17 07:00 Pulse Ox 93 L 02/05/17 08:17 Intake & Output 02/04/17 02/05/17 02/05/17 18:59 06:59 18:59 Intake Total 658 Balance 658 Weight 118.841 kg 117.962 kg 117.962 kg Intake: Oral 658 Other: # Voids 2 - Exam Obese, comfortable likely distress.Head exam was generally normal. There was no scleral icterus or corneal arcus. Mucous membranes were moist. Neck is short and supple and the patient is crowding of the posterior oropharynx. Positive JVDs can be seen bilaterally. Lung sounds are diminished and there is some few bibasilar crackles in lung bases along with some scattered respiratory wheezes. Heart sounds are irregular, positive S1-S2 and there is no significant murmurs appreciated. Abdomen is obese soft nontender and organs cannot be accurately palpated. Extremities show +1 pitting edema there is no cyanosis or clubbing at this point. - Labs CBC & Chem 7: 02/05/17 07:49 02/05/17 07:49 Labs: Abnormal Lab Results - Last 24 Hours (Table) 02/05/17 02/05/17 Range/Units 07:49 07:49 Hct 49.0 H (34.0-46.0) % Carbon Dioxide 36 H (22-30) mmol/L BUN 22 H (7-17) mg/dL Glucose 108 H (74-99) mg/dL Assessment and Plan Plan: Assessment 1 acute CHF exacerbation with secondary shortness of breath 2 nonischemic artery myopathy with ejection fraction of 20% 3 chronic atrial fibrillation rate controlled and maintained on long-term anticoagulation 4 obstructive sleep apnea currently not receiving any CPAP treatment 5 smoker 6 hypertension 7 hyperlipidemia 8 acid reflux 9 generalized anxiety disorder 10 obesity with a BMI of 39. Plan Patient is clinically improving. Continue same treatment. Continue diuretics for another 24 hours. We'll follow.
[2017-02-05] MEDS ORDERED: AMIODARONE 100 MG TAB PO SCH ×2 (13:15→14:00)
--- NOTE | 2017-02-05 14:02 | P.CRDCN ---
History of Present Illness Consult date: 02/05/17 Consult reason: atrial fibrillation, congestive heart failure History of present illness: This is a 56-year-old female who presented to the emergency department complaining of worsening shortness of breath over the past 2-3 days. She has a known history of nonischemic cardiomyopathy with decreased ejection fraction of 20%, hypertension, hyperlipidemia and COPD. She also has a history of chronic atrial fibrillation of which Dr. Talamantes attempted cardioversion last week. The patient states she felt herself go back into an abnormal rhythm the day after the cardioversion. She recently had cardiac catheterization which revealed normal coronary arteries. EKG at this time shows atrial fibrillation with no ST segment changes. She is currently maintained on glucose and metoprolol 50 mg by mouth twice a day. Chest x-ray shows cardiomegaly but no significant pulmonary edema. ProBNP level 5520, no troponin elevation. She did complain of some increased swelling to bilateral lower extremities right greater than left. She has a history of obstructive sleep apnea but has been without CPAP for the last 5 years due to insurance reasons. She is repeating a sleep study next week. She was scheduled to see Dr. Talamantes in the office today for follow-up from the cardioversion. She has a chronic smoker although she has been attempting to cut back and states at this time she smokes 3-4 cigarette per day. Upon examination today she states she is feeling much better. Her shortness of breath seems to be subsiding although she has mainly been resting in bed with minimal exertion. Review of Systems REVIEW OF SYSTEMS: Patient denies any chest discomfort. No shortness of breath. No diaphoresis. He denies headache, dizziness, blurred vision, double vision. No dyspnea on exertion. Patient denies any stomach discomfort. No nausea, vomiting. No hematochezia. No hematemesis. Denies any black stools or blood in his stools. No syncope. No palpitations. No cough. No recent fever or chills. Denies dysuria or hematuria. No muscle weakness or numbness. Past Medical History Past Medical History: Atrial Fibrillation, Heart Failure, COPD, Hyperlipidemia, Hypertension, Sleep Apnea/CPAP/BIPAP Additional Past Medical History / Comment(s): Morbid obesity, obstructive sleep apnea, cardiomyopathy nonischemic with ejection fraction of less than 20%, chronic atrial fibrillation, hyperlipidemia, hypertension, chronic lower extremity edema, acid reflux History of Any Multi-Drug Resistant Organisms: None Reported Past Surgical History: Heart Catheterization, Tubal Ligation Additional Past Surgical History / Comment(s): cardioversion for afib 01/26/17 Past Anesthesia/Blood Transfusion Reactions: No Reported Reaction Past Psychological History: Anxiety, Depression Smoking Status: Current every day smoker Past Alcohol Use History: None Reported Additional Past Alcohol Use History / Comment(s): Pt started smoking in 1974 and was 1 ppd smoker. Recently she has cut back to 3 cigarettes/day. Past Drug Use History: None Reported - Past Family History Mother Family Medical History: Deep Vein Thrombosis (DVT) Additional Family Medical History / Comment(s): Mother had cirrhosis. She at the age of 71yrs. Father Family Medical History: Cancer Additional Family Medical History / Comment(s): Father had mesothelioma. Medications and Allergies Home Medications and Allergies Comment(s): Aldactone 25 mg by mouth daily Metoprolol titrate 50 mg by mouth twice a day Lisinopril 2.5 mg by mouth daily Lasix 20 mg by mouth daily Pepcid 20 mg by mouth daily Atorvastatin 10 mg by mouth at bedtime Aspirin 81 mg by mouth daily Apixiban 5 mg by mouth twice a day Home Medications Medication Instructions Recorded Confirmed Type Albuterol Inhaler [Ventolin Hfa 2 puff INHALATION RT-Q4H PRN 11/10/16 02/04/17 History Inhaler] Cholecalciferol [Vitamin D3] 1,000 unit PO DAILY 11/10/16 02/04/17 History DULoxetine HCL [Cymbalta] 30 mg PO HS 11/10/16 02/04/17 History Vitamin B Complex 1 cap PO DAILY 11/10/16 02/04/17 History Allergies Allergy/AdvReac Type Severity Reaction Status Date / Time No Known Allergies Allergy Verified 02/04/17 11:26 Physical Exam Vitals: Vital Signs Temp Pulse Pulse Resp BP BP BP 02/05/17 08:17 02/05/17 07:00 99.4 F 103 H 18 143/95 02/04/17 22:58 98.3 F 97 18 112/63 02/04/17 20:00 18 02/04/17 14:51 97.1 F L 101 H 18 131/96 02/04/17 13:32 98.6 F 106 H 19 140/76 Pulse Ox 02/05/17 08:17 93 L 02/05/17 07:00 92 L 02/04/17 22:58 93 L 02/04/17 20:00 02/04/17 14:51 96 02/04/17 13:32 98 Intake and Output 02/04/17 02/05/17 02/05/17 22:59 06:59 14:59 Intake Total 658 Balance 658 Intake: Oral 658 Other: # Voids 1 2 Weight 117.962 kg 117.962 kg Patient Weight 02/06/17 06:59 Weight 117.962 kg PHYSICAL EXAMINATION: This is a 56-year-old female in no apparent distress at the time of my examination. HEENT: Head is atraumatic, normocephalic. Pupils are equal, round. Sclerae anicteric. Conjunctivae are clear. Mucous membranes of the mouth are moist. Neck is supple. Positive jugular venous distention bilaterally. No carotid bruit is heard. CHEST EXAMINATION: Lungs are diminished with no rales, wheezes or rhonchi. No chest wall tenderness is noted on palpation or with deep breathing. HEART EXAMINATION: Irregular, no murmur, no rub. S1 and S2 normal. ABDOMEN: Soft, non-tender. Bowel sounds are heard. EXTREMITIES: 2+ peripheral pulses with no mild lower extremity edema, right greater than left. No calf tenderness noted. NEUROLOGIC EXAMINATION: Patient is awake, alert and oriented x3. Results 02/05/17 07:49 02/05/17 07:49 Cardiac Enzymes 02/04/17 02/05/17 02/05/17 Range/Units 18:22 00:10 07:49 AST 22 (14-36) U/L Troponin I <0.012 0.013 (0.000-0.034) ng/mL CBC 02/05/17 Range/Units 07:49 WBC 8.5 (3.8-10.6) k/uL RBC 5.20 (3.80-5.40) m/uL Hgb 15.7 (11.4-16.0) gm/dL Hct 49.0 H (34.0-46.0) % Plt Count 233 (150-450) k/uL Comprehensive Metabolic Panel 02/05/17 Range/Units 07:49 Sodium 144 (137-145) mmol/L Potassium 4.5 (3.5-5.1) mmol/L Chloride 101 (98-107) mmol/L Carbon Dioxide 36 H (22-30) mmol/L BUN 22 H (7-17) mg/dL Creatinine 0.91 (0.52-1.04) mg/dL Glucose 108 H (74-99) mg/dL Calcium 9.3 (8.4-10.2) mg/dL AST 22 (14-36) U/L ALT 42 (9-52) U/L Alkaline Phosphatase 63 (38-126) U/L Total Protein 6.9 (6.3-8.2) g/dL Albumin 3.8 (3.5-5.0) g/dL Current Medications Generic Name Dose Route Start Last Admin Trade Name Freq PRN Reason Stop Dose Admin Alprazolam 0.25 mg 02/04/17 13:04 Xanax PO Q6HR PRN Mild Anxiety Amiodarone HCl 300 mg 02/05/17 13:15 Cordarone PO QID PADMINI Apixaban 5 mg 02/04/17 21:00 02/05/17 08:48 Eliquis PO 5 mg BID PADMINI Administration Aspirin 81 mg 02/05/17 09:00 02/05/17 08:48 Aspirin PO 81 mg DAILY PADMINI Administration Atorvastatin Calcium 10 mg 02/04/17 21:00 02/04/17 21:08 Lipitor PO 10 mg HS PADMINI Administration Duloxetine HCl 30 mg 02/04/17 21:00 02/04/17 21:08 Cymbalta PO 30 mg HS PADMINI Administration Famotidine 20 mg 02/05/17 09:00 02/05/17 08:48 Pepcid PO 20 mg DAILY PADMINI Administration Furosemide 40 mg 02/04/17 21:00 02/05/17 08:49 Lasix IV 40 mg Q12H PADMINI Administration Metoprolol Tartrate 50 mg 02/04/17 21:00 02/05/17 08:48 Lopressor PO 50 mg BID PAMDINI Administration Intake and Output 02/04/17 02/05/17 02/05/17 22:59 06:59 14:59 Intake Total 658 Balance 658 Intake: Oral 658 Other: # Voids 1 2 Weight 117.962 kg 117.962 kg Patient Weight 02/06/17 06:59 Weight 117.962 kg 02/05/17 07:49 02/05/17 07:49 - EKG Interpretation EKG shows: atrial fibrillation Assessment and Plan Plan: Assessment 1. Acute exacerbation of systolic heart failure, ejection fraction 20%. 2. Non-ischemic cardiomyopathy. 3. Chronic atrial fibrillation, rate controlled on long-term anticoagulation with recent failed cardioversion. 4. Obstructive sleep apnea. 5. Hypertension. 6. Obesity with a BMI of 39. 7. Chronic tobacco abuse. 8. Hyperlipidemia Plan We will attempt oral antiarrhythmics with amiodarone at a loading dose of 800 mg divided 4 times per day for one week. Then 600mg divided 4 times per day for one week. Then 400mg daily for 4-6 weeks. Then 200mg daily. If this therapy is not therapeutic and the pt remains in atrial fibrillation, Dr. Talamantes can reconsider plan for repeat cardioversion versus ablation. We will work with case management to initiate Entresto if this medication is affordable to the pt. Zestril has been stopped to prepare for Entresto administration. The patient should remain in the hospital for another day of IV Lasix therapy. We will continue to follow her closely and make recommendations accordingly. Thank you for this consultation. Nurse Practitioner note has been reviewed, I agree with a documented findings and plan of care. Patient was seen and examined.
[2017-02-05] MEDS: AMIODARONE 200 MG TAB PO SCH ×3 (15:07→21:23)
[2017-02-05] MEDS: ATORVASTATIN 10 MG TAB PO SCH (21:23)
[2017-02-05] MEDS: DULoxetine HCL 30 MG CAPSULE.DR PO SCH (21:24)
[2017-02-06 09:14] LABS: Basophils # (A) 0.1 k/uL (0-0.2); Basophils % (A) 1 %; CHCM 31.8; Eosinophils # (A) 0.2 k/uL (0-0.7); Eosinophils % (A) 3 %; HCT 50.3 % (34.0-46.0); HDW 2.52; HGB 16.1 gm/dL (11.4-16.0); Luc # (Auto) 0.09; Luc % (Auto) 1; Lymphocytes # (A) 1.8 k/uL (1.0-4.8); Lymphocytes % (A) 23 %; MCH 30.3 pg (25.0-35.0); MCHC 31.9 g/dL (31.0-37.0); MCV 94.7 fL (80.0-100.0); Mean Platelet Volume 9.3; Monocytes # (A) 0.3 k/uL (0-1.0); Monocytes % (A) 4 %; Neutrophils # (A) 5.6 k/uL (1.3-7.7); Neutrophils % (A) 69 %; RBC 5.31 m/uL (3.80-5.40); WBC 8.1 k/uL (3.8-10.6); WBC (Perox) 8.04
[2017-02-06] MEDS: METOPROLOL TARTRATE 50 MG TAB PO SCH ×2 (09:24→21:18)
[2017-02-06] MEDS: FUROSEMIDE 10 MG/ML 4 ML VIAL IV SCH (09:24)
[2017-02-06] MEDS: AMIODARONE 200 MG TAB PO SCH ×3 (09:24→21:18)
[2017-02-06] MEDS: ASPIRIN 81 MG CHEW PO SCH (09:24)
[2017-02-06] MEDS: FAMOTIDINE 20 MG TAB PO SCH (09:25)
[2017-02-06] MEDS: APIXABAN 5 MG TAB PO SCH ×2 (09:25→21:18)
[2017-02-06 09:31] LABS: ALT 29 U/L (9-52); AST 20 U/L (14-36); Alkaline Phosphatase 63 U/L (38-126); Anion Gap 8 mmol/L; Blood Urea Nitrogen 23 mg/dL (7-17); Calcium 9.3 mg/dL (8.4-10.2); Carbon Dioxide 38 mmol/L (22-30); Chloride 97 mmol/L (98-107); Glucose 138 mg/dL (74-99); Non-African American GFR(MDRD) 58 (>60 ml/min/1.73 sqM); Potassium 4.6 mmol/L (3.5-5.1); Sodium 143 mmol/L (137-145); Total Bilirubin 0.7 mg/dL (0.2-1.3); Total Protein 6.6 g/dL (6.3-8.2)
--- NOTE | 2017-02-06 10:40 | P.PN ---
Subjective Patient is a 56-year-old female patient of Dr. Malena Vidal who presented to [facility] emergency room with a chief complaint of shortness of breath. Patient states that for the last week she has been having increasing difficulty with breathing, she was having episodes of severe shortness of breath when laying down where she had to sit up to catch her breath. Patient was admitted to my service in November 2016 at that time she was diagnosed with atrial fibrillation and congestive heart failure her ejection fraction was down to 20-25% she underwent cardiac catheterization that revealed normal coronary arteries she was diagnosed with nonischemic cardiomyopathy she has been followed by Dr. Reyes since. During the last admission patient was advised to have a sleep study, she states that she has that scheduled for next week. Patient still is smoking a few cigarettes per day 02/05/2017 patient reports some improvement in her shortness of breath after starting on IV Lasix. She has not required any oxygen since being on the floor. Awaiting cardiology and pulmonary service consult. Chest x-ray for today shows cardiomegaly. He does admit to a cough with whitish sputum. She also noted decrease in her edema of the lower extremities. 02/06/2017 patient shortness of breath has improved greatly. Cardiology wants to start patient on an Entresto. Awaiting to see if insurance covers the Entresto. Lisinopril discontinued yesterday. Patient also started on amiodarone. She remains in atrial fibrillation rate controlled. Patient denies any chest pain or shortness of breath. Denies any nausea or vomiting. Denies any bowel movement changes or urinary symptoms Objective - Vital Signs Vital signs: Vital Signs Temp 96.4 F L 02/06/17 07:00 Pulse 90 02/06/17 07:00 Resp 16 02/06/17 07:00 BP 125/64 02/06/17 07:00 Pulse Ox 92 L 02/06/17 07:00 Intake & Output 02/05/17 02/06/17 02/06/17 18:59 06:59 18:59 Intake Total 658 Balance 658 Weight 117.962 kg 117.225 kg Intake: Oral 658 Other: Voiding Method Toilet # Voids 2 2 # Bowel Movements 0 - Exam Head normocephalic Neck supple Lungs coarse breath sounds that improve with cough. No crackles. Heart irregular. A. fib on monitor. Rate controlled. Abdomen is soft nontender nondistended positive bowel sounds no hepatosplenomegaly Extremities no edema Neuro alert and orientated to 3 - Labs CBC & Chem 7: 02/06/17 08:24 02/06/17 08:24 Labs: Abnormal Lab Results - Last 24 Hours (Table) 02/06/17 02/06/17 Range/Units 08:24 08:24 Hgb 16.1 H (11.4-16.0) gm/dL Hct 50.3 H (34.0-46.0) % Chloride 97 L (98-107) mmol/L Carbon Dioxide 38 H (22-30) mmol/L BUN 23 H (7-17) mg/dL Glucose 138 H (74-99) mg/dL Assessment and Plan Plan: 1. Acute on chronic systolic CHF exacerbation: Her EF in November was around 20-25% . Patient reports a recent echo done in the cardiology office. Elevated BNP on admission. Cardiology is following patient is currently on Lasix 40 mg IV every 12 hours. Will await cardiology recommendations in regards to switching patient to by mouth Lasix. Awaiting to see if insurance will cover Entresto. KAMILLA inhibitor was discontinued yesterday so that Entresto could possibly be started. 2. Chronic atrial fibrillation: Rate controlled. Continue Eliquis for anticoagulation. Continue metoprolol for rate control. Cardiology has added amiodarone. We'll await their recommendations. If patient does not convert to sinus rhythm on amiodarone there is discussion about possible cardioversion or ablation. 3. Possible sleep apnea: Patient has a scheduled sleep study on Thursday 4. Chronic obstructive pulmonary disease with no evidence of exacerbation 5. History of nonischemic cardiomyopathy with EF of 20-25% 6. Hyperlipidemia continue with the Lipitor GI prophylaxis Pepcid and DVT prophylaxis Eliquis Anticipate discharge possibly tomorrow I performed an examination of the patient and discussed their management with the physician Manager Room. I have reviewed the Physician Manager Room's notes and agree with the documented findings and plan of care
[2017-02-06] MEDS: SPIRONOLACTONE 25 MG TAB PO SCH (10:51)
--- NOTE | 2017-02-06 14:53 | P.PN ---
Subjective This is a 56-year-old female who presented to the emergency department complaining of worsening shortness of breath over the past 2-3 days. She has a known history of nonischemic cardiomyopathy with decreased ejection fraction of 20%, hypertension, hyperlipidemia and COPD. She also has a history of chronic atrial fibrillation of which Dr. Talamantes attempted cardioversion last week. The patient states she felt herself go back into an abnormal rhythm the day after the cardioversion. She recently had cardiac catheterization which revealed normal coronary arteries. EKG at this time shows atrial fibrillation with no ST segment changes. She is currently rate controlled with metoprolol 50 mg by mouth twice a day. Chest x-ray shows cardiomegaly but no significant pulmonary edema. ProBNP level 5520, no troponin elevation. She did complain of some increased swelling to bilateral lower extremities right greater than left. She has a history of obstructive sleep apnea but has been without CPAP for the last 5 years due to insurance reasons. She is repeating a sleep study next week. She was scheduled to see Dr. Talamantes in the office today for follow-up from the cardioversion. She has a chronic smoker although she has been attempting to cut back and states at this time she smokes 3-4 cigarette per day. Upon examination today she states she is feeling much better. Her shortness of breath seems to have completely subsided. The swelling in her legs has significantly improved. We discussed at length the addition of amiodarone and its use as well as the schedule for tapering. We also discussed entresto and questions were answered appropriately. Objective - Vital Signs Vital signs: Vital Signs Temp 96.7 F L 02/06/17 14:34 Pulse 86 02/06/17 14:34 Resp 18 02/06/17 14:34 BP 113/75 02/06/17 14:34 Pulse Ox 91 L 02/06/17 14:34 Intake & Output 02/05/17 02/06/17 02/06/17 18:59 06:59 18:59 Intake Total 658 Balance 658 Weight 117.962 kg 117.225 kg Intake: Oral 658 Other: Voiding Method Toilet # Voids 2 2 3 # Bowel Movements 0 - Exam GENERAL: Well-appearing, well-nourished and in no acute distress. NECK: Supple with JVD bilaterally. No thyromegaly. LUNGS: Breath sounds clear to auscultation bilaterally and equally diminished. No wheezes, rales or rhonchi. HEART: Irregular rate and rhythm without murmurs, rubs or gallops. S1 and S2 heard. ABDOMEN: Soft, nontender, normoactive bowel sounds. EXTREMITIES: Normal range of motion, trace edema lower extremities. No clubbing or cyanosis. Peripheral pulses intact and strong. - Labs CBC & Chem 7: 02/06/17 08:24 02/06/17 08:24 Labs: Abnormal Lab Results - Last 24 Hours (Table) 02/06/17 02/06/17 Range/Units 08:24 08:24 Hgb 16.1 H (11.4-16.0) gm/dL Hct 50.3 H (34.0-46.0) % Chloride 97 L (98-107) mmol/L Carbon Dioxide 38 H (22-30) mmol/L BUN 23 H (7-17) mg/dL Glucose 138 H (74-99) mg/dL Assessment and Plan Plan: ASSESSMENT 1. Acute exacerbation of systolic heart failure, ejection fraction 20%. 2. Non-ischemic cardiomyopathy. 3. Chronic atrial fibrillation, rate controlled on long-term anticoagulation with recent failed cardioversion. 4. Obstructive sleep apnea. 5. Hypertension. 6. Obesity with a BMI of 39. 7. Chronic tobacco abuse. 8. Hyperlipidemia PLAN Prescriptions have been sent to patient's pharmacy for amiodarone taper verbalized understanding from the patient on how to take the medication for the next 4 weeks. Entresto prior authorization is still pending, therefore we will have the pharmacy here supply the patient with a 30 day supply pending authorization. She is to stop lisinopril and begin and entresto tomorrow. Upon discharge she should resume her home dose of Lasix 40 mg by mouth daily. From a cardiac standpoint she is stable for discharge to follow-up with Dr. Talamantes in 2 weeks. Nurse Practitioner note has been reviewed, I agree with a documented findings and plan of care. Patient was seen and examined.
[2017-02-06] MEDS: DULoxetine HCL 30 MG CAPSULE.DR PO SCH (21:17)
[2017-02-06] MEDS: ATORVASTATIN 10 MG TAB PO SCH (21:18)
[2017-02-07 07:31] VITALS: RESP 20
[2017-02-07 08:02] LABS: Basophils # (A) 0.1 k/uL (0-0.2); Basophils % (A) 1 %; CH 30.1; Eosinophils # (A) 0.2 k/uL (0-0.7); Eosinophils % (A) 3 %; HCT 54.1 % (34.0-46.0); HDW 2.54; Luc # (Auto) 0.17; Luc % (Auto) 2; Lymphocytes # (A) 1.8 k/uL (1.0-4.8); Lymphocytes % (A) 22 %; MCH 29.8 pg (25.0-35.0); MCHC 31.4 g/dL (31.0-37.0); MCV 94.8 fL (80.0-100.0); Mean Platelet Volume 9.1; Monocytes # (A) 0.5 k/uL (0-1.0); Monocytes % (A) 6 %; Neutrophils # (A) 5.6 k/uL (1.3-7.7); Neutrophils % (A) 67 %; RBC 5.71 m/uL (3.80-5.40); RDW 15.3 % (11.5-15.5); WBC 8.4 k/uL (3.8-10.6)
[2017-02-07] MEDS: ASPIRIN 81 MG CHEW PO SCH (08:18)
[2017-02-07] MEDS: AMIODARONE 200 MG TAB PO SCH ×2 (08:18→12:50)
[2017-02-07] MEDS: METOPROLOL TARTRATE 50 MG TAB PO SCH (08:18)
[2017-02-07] MEDS: APIXABAN 5 MG TAB PO SCH (08:19)
[2017-02-07] MEDS: SPIRONOLACTONE 25 MG TAB PO SCH (08:19)
[2017-02-07] MEDS: FAMOTIDINE 20 MG TAB PO SCH (08:19)
[2017-02-07 08:34] LABS: ALT 39 U/L (9-52); AST 24 U/L (14-36); Alkaline Phosphatase 63 U/L (38-126); Blood Urea Nitrogen 27 mg/dL (7-17); Calcium 9.3 mg/dL (8.4-10.2); Carbon Dioxide 34 mmol/L (22-30); Glucose 97 mg/dL (74-99); Non-African American GFR(MDRD) >60 (>60 ml/min/1.73 sqM); Potassium 4.9 mmol/L (3.5-5.1); Sodium 143 mmol/L (137-145); Total Bilirubin 0.7 mg/dL (0.2-1.3); Total Protein 6.8 g/dL (6.3-8.2)
[2017-02-07 08:55] LABS: Anion Gap 8 mmol/L; Chloride 101 mmol/L (98-107)
[2017-02-07] MEDS ORDERED: FUROSEMIDE 10 MG/ML 4 ML VIAL IV SCH (09:00)
[2017-02-07 15:27] VITALS: BP 117/87; PULSE 81; TEMP 97.4
--- NOTE | 2017-02-07 16:03 | P.DS ---
Providers Date of admission: 02/04/17 13:09 Expected date of discharge: 02/07/17 Attending physician: Wanda Harmon Consults: 02/04/17 13:04 Consult Physician Urgent Consulting Provider: Jonatan Talamantes Consult Reason/Comments: afib Do you want consulting provider notified?: Yes 02/04/17 13:05 Consult Physician Urgent Consulting Provider: Devon Zavala Consult Reason/Comments: copd Do you want consulting provider notified?: Yes Primary care physician: Bere Vidal Hospital Course: diagnoses on discharge: 1. Acute on chronic systolic CHF exacerbation: Her EF in November was around 20-25% . Patient reports a recent echo done in the cardiology office. Elevated BNP on admission. Cardiology is following patient is currently on Lasix 40 mg IV every 12 hours. Will await cardiology recommendations in regards to switching patient to by mouth Lasix. Awaiting to see if insurance will cover Entresto. KAMILLA inhibitor was discontinued yesterday so that Entresto could possibly be started. 2. Chronic atrial fibrillation: Rate controlled. Continue Eliquis for anticoagulation. Continue metoprolol for rate control. Cardiology has added amiodarone. We'll await their recommendations. If patient does not convert to sinus rhythm on amiodarone there is discussion about possible cardioversion or ablation. 3. Possible sleep apnea: Patient has a scheduled sleep study on Thursday 4. Chronic obstructive pulmonary disease with no evidence of exacerbation 5. History of nonischemic cardiomyopathy with EF of 20-25% 6. Hyperlipidemia continue with the Lipitor Hospital course: Patient is a 56-year-old female patient of Dr. Malena Vidal who presented to [facility] emergency room with a chief complaint of shortness of breath. Patient states that for the last week she has been having increasing difficulty with breathing, she was having episodes of severe shortness of breath when laying down where she had to sit up to catch her breath. Patient was admitted to my service in November 2016 at that time she was diagnosed with atrial fibrillation and congestive heart failure her ejection fraction was down to 20-25% she underwent cardiac catheterization that revealed normal coronary arteries she was diagnosed with nonischemic cardiomyopathy she has been followed by Dr. Reyes since. During the last admission patient was advised to have a sleep study, she states that she has that scheduled for next week. Patient still is smoking a few cigarettes per day 02/05/2017 patient reports some improvement in her shortness of breath after starting on IV Lasix. She has not required any oxygen since being on the floor. Awaiting cardiology and pulmonary service consult. Chest x-ray for today shows cardiomegaly. He does admit to a cough with whitish sputum. She also noted decrease in her edema of the lower extremities. 02/06/2017 patient shortness of breath has improved greatly. Cardiology wants to start patient on an Entresto. Awaiting to see if insurance covers the Entresto. Lisinopril discontinued yesterday. Patient also started on amiodarone. She remains in atrial fibrillation rate controlled. Patient denies any chest pain or shortness of breath. Denies any nausea or vomiting. Denies any bowel movement changes or urinary symptoms 02/07/2017 patient is doing better she was evaluated again by cardiology, she was cleared for discharge, clinically she is doing better she is able to ambulate her shortness of breath has improved significantly . she was given a prescription for and Entresto one twice a day to be started as outpatient patient will pick free 30 day prescription from [facility] pharmacy she will follow-up was Dr. Talamantes within 2 weeks to arrange for further prescription refills. Patient Condition at Discharge: Fair Plan - Discharge Summary New Discharge Prescriptions: New Amiodarone [Cordarone] 200 mg PO QID #66 tab Continue Apixaban [Eliquis] 5 mg PO BID tab Aspirin 81 mg PO DAILY chew Furosemide [Lasix] 40 mg PO DAILY tab Spironolactone [Aldactone] 25 mg PO DAILY tab Discontinued Lisinopril [Zestril] 2.5 mg PO DAILY tab No Action Vitamin B Complex 1 cap PO DAILY Cholecalciferol [Vitamin D3] 1,000 unit PO DAILY DULoxetine HCL [Cymbalta] 30 mg PO HS Albuterol Inhaler [Ventolin Hfa Inhaler] 2 puff INHALATION RT-Q4H PRN PRN Reason: Shortness Of Breath ALPRAZolam [Xanax] 0.25 mg PO Q6HR PRN #0 tab PRN Reason: Mild Anxiety Atorvastatin [Lipitor] 10 mg PO HS tab Famotidine [Pepcid] 20 mg PO DAILY tab Metoprolol Tartrate [Lopressor] 50 mg PO BID tab Discharge Medication List Albuterol Inhaler [Ventolin Hfa Inhaler] 2 puff INHALATION RT-Q4H PRN 11/10/16 [ History] Cholecalciferol [Vitamin D3] 1,000 unit PO DAILY 11/10/16 [History] DULoxetine HCL [Cymbalta] 30 mg PO HS 11/10/16 [History] Vitamin B Complex 1 cap PO DAILY 11/10/16 [History] ALPRAZolam [Xanax] 0.25 mg PO Q6HR PRN #0 tab 11/16/16 [Rx] Apixaban [Eliquis] 5 mg PO BID tab 11/16/16 [Rx] Aspirin 81 mg PO DAILY chew 11/16/16 [Rx] Atorvastatin [Lipitor] 10 mg PO HS tab 11/16/16 [Rx] Famotidine [Pepcid] 20 mg PO DAILY tab 11/16/16 [Rx] Furosemide [Lasix] 40 mg PO DAILY tab 11/16/16 [Rx] Metoprolol Tartrate [Lopressor] 50 mg PO BID tab 11/16/16 [Rx] Spironolactone [Aldactone] 25 mg PO DAILY tab 11/16/16 [Rx] Amiodarone [Cordarone] 200 mg PO QID #66 tab 02/06/17 [Rx] Follow up Appointment(s)/Referral(s): Bere Vidal MD [Primary Care Provider] - 1-2 days
== END 2017-02-07 16:40 | disposition home or self-care (01) | DRG 293 ==
LOC: EC 11:00 → 4MS4W 13:09
PROVIDERS: ADMIT Internal Medicine; ATTEND Internal Medicine
DX: I11.0 Hypertensive heart disease with heart failure (principal); I50.23 Acute on chronic systolic (congestive) heart failure; E66.01 Morbid (severe) obesity due to excess calories; E78.5 Hyperlipidemia, unspecified; F17.210 Nicotine dependence, cigarettes, uncomplicated; F41.1 Generalized anxiety disorder; G47.33 Obstructive sleep apnea (adult) (pediatric); I25.5 Ischemic cardiomyopathy; I48.2 Chronic atrial fibrillation; J44.9 Chronic obstructive pulmonary disease, unspecified; K21.9 Gastro-esophageal reflux disease without esophagitis; Z79.82 Long term (current) use of aspirin; Z79.899 Other long term (current) drug therapy; Z79.01 Long term (current) use of anticoagulants
CPT/HCPCS: 36415; 71020; 80053; 82550; 82553; 83735; 83880; 84484; 85025; 85610; 85730; 94640; 94760; 96374; 99285

== ENCOUNTER 2017-02-25 11:13 | Day surgery (SDC) | payer OTHER ==
[2017-02-17 12:14] VITALS: BMI 38.5
[2017-02-25] MEDS ORDERED: PROPOFOL 10 MG/ML 20 ML VIAL IV ONE (12:36)
[2017-02-25] MEDS ORDERED: SODIUM CHLORIDE 0.9% 500 ML IV ONE (12:46)
[2017-02-25 12:50] VITALS: TEMP 97
--- NOTE | 2017-02-25 12:56 | P.PCN ---
Date of Procedure: 02/25/17 Preoperative Diagnosis: Postoperative Diagnosis: Procedure(s) Performed: Implants: Indications for Procedure: Operative Findings: CARDIOVERSION REPORT Performing physician Jonatan Talamantes M.D., bond trader Procedure performed Successful cardioversion of atrial fibrillation to normal sinus mechanism using 300 J and second attempt. Indication This is a pleasant 56-year-old female patient who was known to have nonischemic cardiomyopathy and atrial fibrillation who was on anticoagulation was brought today to undergo cardioversion. She underwent cardioversion few weeks ago but she came back to [facility] and this time the cardioversion was scheduled but the patient was initiated on amiodarone before. Complication None Level of sedation Deep sedation was performed with anesthesiologist in the room. Procedure description The patient was put into deep sedation using propofol. I attempted the cardioversion using 200 J but the patient will not convert to normal sinus mechanism. The second attempt was using 300 J and the patient converted to normal sinus mechanism without any complication. Post procedure management #1 Continue the current medical treatment using the amiodarone #2 Treat the sleep apnea as well #3 Follow-up with the patient Description of Procedure:
[2017-02-25 13:53] VITALS: PULSE 54; RESP 20
[2017-02-25 14:52] VITALS: BP 107/71
== END 2017-02-25 14:35 | disposition home or self-care (01) ==
LOC: CATHCVL 11:13
PROVIDERS: ATTEND Internal Medicine Interventional Cardiology
DX: I48.0 Paroxysmal atrial fibrillation (principal); G47.33 Obstructive sleep apnea (adult) (pediatric); I42.8 Other cardiomyopathies; E78.5 Hyperlipidemia, unspecified; Z79.82 Long term (current) use of aspirin; Z79.899 Other long term (current) drug therapy; E66.01 Morbid (severe) obesity due to excess calories; Z68.41 Body mass index [BMI] 40.0-44.9, adult; F17.210 Nicotine dependence, cigarettes, uncomplicated
CPT/HCPCS: 92960; 93005

== ENCOUNTER → 2017-03-30 | Outpatient (CLI) | payer OTHER ==
--- NOTE | 2017-04-01 07:14 | MM ---
Reason for exam: screening (asymptomatic). Last mammogram was performed 2 years and 2 months ago. History: Patient is postmenopausal. Physical Findings: A clinical breast exam by your physician is recommended on an annual basis and results should be correlated with mammographic findings. MG Screening Mammo w CAD Bilateral CC and MLO view(s) were taken. Prior study comparison: January 23, 2015, bilateral MG screening mammo w CAD. September 01, 2007, mammogram, performed at [place]. No suspicious calcifications are seen. Stable asymmetries in the left breast. No significant changes when compared with prior studies. ASSESSMENT: Benign, BI-RAD 2 RECOMMENDATION: Routine screening mammogram of both breasts in 1 year.
== END | disposition home or self-care (01) ==
LOC: RADMAMWWP 07:03
PROVIDERS: ATTEND Family Medicine
DX: Z12.31 Encounter for screening mammogram for malignant neoplasm of breast (principal)

== ENCOUNTER → 2017-04-22 | Outpatient (CLI) | payer OTHER ==
--- NOTE | 2017-04-22 17:32 | PN ---
PROGRESS NOTE This patient is a 56-year-old lady who has been followed in the sleep center for treatment of severe obstructive sleep apnea/hypopnea syndrome. I discussed results of diagnostic sleep study and CPAP titration with the patient in details. At present she is on treatment with CPAP at a pressure of 13 cm of water. The patient demonstrated borderline compliance. She is using equipment 19/30 nights for more than 4 hours, average 5.2 hours. In total, she used equipment 29/30 nights; so practically every night she is using it, but maybe not for the whole night. Reading from the machine for the last night showed apnea-hypopnea index only 2; for the last month 3.7, but the leak is significant. Reading the leak factor showed 49 L/minute. The patient is using an AirFit P10 nasal pillow mask, and it looks like it on her head. MEDICATIONS: 1. Amiodarone. 2. Entresto. 3. Alprazolam. 4. Apixaban. 5. Atorvastatin. 6. Aspirin. 7. Pepcid. 8. Lasix. 9. Metoprolol. 10.Aldactone. 11.Some other medications. PHYSICAL EXAMINATION: Patient is in no distress. VITAL SIGNS: BP 128/66, HR 60, RR 18, weight 271.2, temperature 98.0, oxygen saturation at room air 93%. HEENT: PERRLA, EOMI. Evaluation of oropharynx showed tongue protrudes midline; low position of soft palate. NECK: Supple. No JVD. Thyroid is not palpable. LUNGS: Clear to percussion and to auscultation. Good air exchange. No wheezing or rhonchi. HEART: S1, S2 irregularly irregular. ABDOMEN: Obese. EXTREMITIES: Ankles have 1+ edema bilaterally. PEANUT SHAKER: Awake, alert and oriented x3. Cranial nerves 2 to 7 intact. There is no fasciculation or atrophy noted. No focal deficits observed. IMPRESSION: 1. Severe obstructive sleep apnea-hypopnea syndrome; apnea-hypopnea index 66.2 with oxygen desaturation to 76%, under control with CPAP at 13 cm of water. Patient is benefitting from treatment. 2. Patient has a quite significant leak from the nasal pillow mask. 3. Obesity. 4. History of atrial fibrillation. 5. Hypertension. 6. Hyperlipidemia. 7. Anxiety. 8. Acid reflux. 9. History of congestive heart failure. PLAN: 1. Continue treatment with CPAP every night. 2. Losing weight. 3. We will arrange some adjustments of the patient's nasal pillow mask, and also I will provide her with a prescription for another mask. 4. No driving if feeling any sleepiness. 5. Sleep hygiene with regular time in bed for at least 8 hours. Thank you very much for allowing me to participate in management of your patient. Sincerely, Diego David MD, PhD, FAASM Diplomat of [employer] Putty And Patch Worker of [facility] [place] MMODL / IJN: [id number] /
== END ==
LOC: SLEEP 14:36
PROVIDERS: ATTEND Internal Medicine
DX: G47.33 Obstructive sleep apnea (adult) (pediatric) (principal); E66.9 Obesity, unspecified; I10 Essential (primary) hypertension; E78.5 Hyperlipidemia, unspecified; F41.9 Anxiety disorder, unspecified; K21.9 Gastro-esophageal reflux disease without esophagitis; I48.91 Unspecified atrial fibrillation; I50.9 Heart failure, unspecified; Z79.899 Other long term (current) drug therapy; Z79.82 Long term (current) use of aspirin

== ENCOUNTER → 2017-04-29 | Outpatient (CLI) | payer OTHER ==
[2017-04-29 14:39] LABS: Anion Gap 7 mmol/L; Blood Urea Nitrogen 23 mg/dL (7-17); Carbon Dioxide 35 mmol/L (22-30); Chloride 101 mmol/L (98-107); Non-African American GFR(MDRD) 57 (>60 ml/min/1.73 sqM); Potassium 3.9 mmol/L (3.5-5.1); Sodium 143 mmol/L (137-145)
== END | disposition home or self-care (01) ==
LOC: LABWHC1 13:58
PROVIDERS: ATTEND Internal Medicine Interventional Cardiology
DX: R60.0 Localized edema (principal)
CPT/HCPCS: 36415; 80051; 82565; 84520

== ENCOUNTER 2017-10-18 12:50 | Emergency (ER) | payer OTHER ==
--- NOTE | 2017-10-18 13:34 | XR ---
EXAMINATION TYPE: XR shoulder complete RT , 3 VIEWS DATE OF EXAM ORDERED: 10/18/2017 HISTORY: Pain. COMPARISON: None. FINDINGS: No fracture, dislocation or other acute osseous lesion is seen. There is amorphous calcifi cation adjacent to the insertion site of the supraspinatus tendon. This may reflect chronic calcific tendinosis. IMPRESSION: NO ACUTE OSSEOUS LESION.
--- NOTE | 2017-10-18 14:00 | ED ---
General Adult HPI - General Chief complaint: Fall Stated complaint: fall, rt shoulder pain Time Seen by Provider: 10/18/17 13:35 Source: patient, RN notes reviewed Mode of arrival: ambulatory Limitations: no limitations - History of Present Illness Initial comments: 57-year-old female presents to the emergency determine for a chief complaint of right shoulder pain. Patient states she was walking on the treadmill when she accidentally increased this be too quickly. Patient states she fell off onto her shoulder. She is unsure if she caught herself with her wrist or hit the ground with her shoulder. Patient has no pain in the right extremity besides the right shoulder. Patient has no complaints of any other injuries. Patient denies hitting her head. Patient states she has full sensation in her right hand and right upper extremity. She states she does not have an orthopedic doctor. She states it is painful to move the right shoulder. Patient denies any other complaints at this time including shortness of breath and chest pain. - Related Data Home Medications Medication Instructions Recorded Confirmed Albuterol Inhaler [Ventolin Hfa 2 puff INHALATION RT-Q4H PRN 11/10/16 05/07/17 Inhaler] Cholecalciferol [Vitamin D3] 1,000 unit PO DAILY 11/10/16 05/07/17 DULoxetine HCL [Cymbalta] 30 mg PO HS 11/10/16 05/07/17 Vitamin B Complex 1 cap PO DAILY 11/10/16 05/04/17 Previous Rx's Medication Instructions Recorded ALPRAZolam [Xanax] 0.25 mg PO Q6HR PRN #0 tab 11/16/16 Apixaban [Eliquis] 5 mg PO BID tab 11/16/16 Atorvastatin [Lipitor] 10 mg PO HS tab 11/16/16 Famotidine [Pepcid] 20 mg PO DAILY tab 11/16/16 Furosemide [Lasix] 40 mg PO DAILY tab 11/16/16 Metoprolol Tartrate [Lopressor] 50 mg PO BID tab 11/16/16 Spironolactone [Aldactone] 25 mg PO DAILY tab 11/16/16 Amiodarone [Cordarone] 200 mg PO QID #66 tab 02/06/17 Sacubitril/Valsartan [Entresto 24 1 each PO BID #60 tab 02/07/17 mg-26 mg Tablet] Allergies Allergy/AdvReac Type Severity Reaction Status Date / Time No Known Allergies Allergy Verified 10/18/17 13:09 Review of Systems ROS Statement: Those systems with pertinent positive or pertinent negative responses have been documented in the HPI. ROS Other: All systems not noted in ROS Statement are negative. Past Medical History Past Medical History: Atrial Fibrillation, Heart Failure, COPD, Hyperlipidemia, Hypertension, Sleep Apnea/CPAP/BIPAP Additional Past Medical History / Comment(s): Morbid obesity, obstructive sleep apnea, cardiomyopathy nonischemic with ejection fraction of less than 20%, chronic atrial fibrillation, hyperlipidemia, hypertension, chronic lower extremity edema, acid reflux History of Any Multi-Drug Resistant Organisms: None Reported Past Surgical History: No Surgical Hx Reported Additional Past Surgical History / Comment(s): cardioversion for afib 01/26/17 Past Anesthesia/Blood Transfusion Reactions: No Reported Reaction Past Psychological History: Anxiety, Depression Smoking Status: Current every day smoker Past Alcohol Use History: None Reported Past Drug Use History: None Reported - Past Family History Mother Family Medical History: Deep Vein Thrombosis (DVT) Additional Family Medical History / Comment(s): Mother had cirrhosis. She at the age of 71yrs. Father Family Medical History: Cancer Additional Family Medical History / Comment(s): Father had mesothelioma. General Exam Limitations: no limitations Respiratory exam: Present: normal lung sounds bilaterally. Absent: respiratory distress, wheezes, rales, rhonchi, stridor Cardiovascular Exam: Present: regular rate, normal rhythm, normal heart sounds. Absent: systolic murmur, diastolic murmur, rubs, gallop, clicks Extremities exam: Present: tenderness (Tenderness to the anterior aspect of the right shoulder. No other tenderness present in the right upper extremity.), normal capillary refill (Capillary refill less than 2 seconds in the right upper extremity.), other (Radial pulses 2+ in the right upper extremity. Patient has full sensation to light touch in the right upper extremity.). Absent: full ROM (Patient has full range of motion of the right elbow and wrist. Patient has limited range of motion in all directions of the right shoulder.) Course Vital Signs 10/18/17 13:06 Temperature 99.1 F Pulse Rate 63 Respiratory 18 Rate Blood Pressure 121/59 O2 Sat by Pulse 96 Oximetry Medical Decision Making - Medical Decision Making 57-year-old female presents to the emergency department for right shoulder pain after fall from treadmill. Neurovascular intact. X-ray shows no acute fractures or dislocations in the right shoulder. However There is amorphis calcification adjacent to the insertion site of the supraspinatus tendon. This may reflect chronic calcific tendinosis. Patient will be educated on range of motion every 30 minutes. She may use a sling for comfort. She is to follow up with orthopedics. If symptoms worsen or she begins to lose feeling in her hand she is to return to the emergency department. She is to take Motrin and Tylenol for pain relief [id number]. Disposition Clinical Impression: Shoulder pain, right Disposition: HOME SELF-CARE Condition: Good Instructions: Shoulder Pain (ED) Additional Instructions: Please return to the emergency department if you have worsening symptoms or loses feeling of the right hand. Please follow-up with orthopedics in one to 2 days. Take ibuprofen or Tylenol for pain relief. Do range of motion exercises every 30 minutes while wearing the sling. You may wear the sling for comfort for the first few days. Referrals: Bere Vidal MD [Primary Care Provider] - 1-2 days Lorena Redmond DO [Doctor of Osteopathic Medicine] - 1-2 days Time of Disposition: 13:58
[2017-10-18 14:23] VITALS: BP 149/73; PULSE 64; RESP 16; TEMP 97.3
== END 2017-10-18 14:13 | disposition home or self-care (01) ==
LOC: EC 12:50
DX: M25.511 Pain in right shoulder (principal); M65.811 Other synovitis and tenosynovitis, right shoulder; F41.9 Anxiety disorder, unspecified; F32.9 Major depressive disorder, single episode, unspecified; F17.200 Nicotine dependence, unspecified, uncomplicated; G47.33 Obstructive sleep apnea (adult) (pediatric); Z99.89 Dependence on other enabling machines and devices; E66.01 Morbid (severe) obesity due to excess calories; Z68.41 Body mass index [BMI] 40.0-44.9, adult; Z79.899 Other long term (current) drug therapy; W17.89XA Other fall from one level to another, initial encounter; Y93.A1 Activity, exercise machines primarily for cardiorespiratory conditioning; Y92.009 Unspecified place in unspecified non-institutional (private) residence as the place of occurrence of the external cause
CPT/HCPCS: 99283

== ENCOUNTER → 2018-07-07 | Outpatient (CLI) | payer OTHER ==
[2018-07-07 12:01] LABS: ALT 27 U/L (8-44); AST 19 U/L (13-35); Albumin/Globulin Ratio 1.83 (1.20-2.10); Alkaline Phosphatase 84 U/L (41-126); Bilirubin, Conjugated <0.20 mg/dL (0.20-0.40); Globulin 2.3 g/dL (1.6-3.3); Total Bilirubin 0.3 mg/dL (0.3-1.2); Total Protein 6.5 g/dL (6.2-8.2)
== END | disposition home or self-care (01) ==
LOC: LABWHC1 06:34
PROVIDERS: ATTEND Internal Medicine Interventional Cardiology
DX: E03.9 Hypothyroidism, unspecified (principal)
CPT/HCPCS: 36415; 80076; 84439; 84443

== ENCOUNTER → 2018-07-15 | Outpatient (CLI) | payer OTHER ==
--- NOTE | 2018-07-15 12:49 | SFUN ---
SLEEP CENTER FOLLOW UP NOTE DATE OF SERVICE: 07/15/2018 This 58-year-old lady had been followed in sleep center for treatment of obstructive sleep apnea-hypopnea syndrome. The patient successfully continuing to use her CPAP equipment without problems related to mask fitting, pressure or humidification. I checked CPAP unit. CPAP pressure of 13 cm of water. Leak is 36 L/minute, which is borderline. Apnea-hypopnea index only 1.2, which is absolutely perfect. The patient is using equipment around more than 50% of the time for more than 4 hours. [place] Sleepiness Scale today is 7. MEDICATIONS: Amiodarone, Entresto, alprazolam, apixaban, atorvastatin, aspirin, Pepcid, Lasix, metoprolol, Aldactone. PHYSICAL EXAMINATION: During physical examination, lady without distress. VITAL SIGNS: BP 138/72, HR 51, RR 16, height 5 feet 9 inches, weight 288.8 pounds, which is 17 pounds more than during the previous visit, temperature 98.4, oxygen saturation at room air 98%. HEENT: PERRLA, EOMI. Oropharynx low position of soft palate. NECK: Supple, no JVD. Thyroid is not palpable. LUNGS: Clear to percussion and to auscultation. Good air exchange. No wheezing or rhonchi. HEART: S1, S2 regular. No murmurs, gallops, or rubs. ABDOMEN: Obese. EXTREMITIES: No clubbing or cyanosis. DRAWBENCH OPERATOR: Awake, alert, and oriented X3. Cranial nerves 2 to 7 intact. There is no fasciculation or atrophy. noted. No focal deficits observed. IMPRESSION: 1. Obstructive sleep apnea-hypopnea syndrome on full control with CPAP at 13 cm of water. Patient benefitting from treatment. 2. Obesity. The patient increased her weight of 17 pounds. 3. History of atrial fibrillation, presently by auscultation and pulse normal sinus rhythm. 4. Hypertension. 5. Hyperlipidemia. 6. Anxiety. 7. Acid reflux. 8. History of congestive heart failure in the past, probably related to atrial fibrillation. Recent evaluation of ejection fraction around 50%. PLAN: 1. I discussed with the patient necessity to use CPAP equipment every night for the whole night, especially because sleep apnea increase risks for atrial fibrillation. 2. Losing weight. 3. Sleep hygiene with regular time in bed for at least 7-1/2 hours. 4. No driving if feeling any sleepiness. 5. Will maintain all necessary prescriptions for mask, tube, filters. Thank you very much for allowing me to participate in management of your patient. Sincerely, Diego David MD, PhD, FAASM Diplomat of [employer] Tape Coater of [facility] [place] MMODL / AMERICON: [id number] /
== END | disposition home or self-care (01) ==
LOC: SLEEP 11:00
PROVIDERS: ATTEND Internal Medicine
DX: G47.33 Obstructive sleep apnea (adult) (pediatric) (principal); E66.9 Obesity, unspecified; I10 Essential (primary) hypertension; E78.5 Hyperlipidemia, unspecified; F41.9 Anxiety disorder, unspecified; K21.9 Gastro-esophageal reflux disease without esophagitis; Z86.79 Personal history of other diseases of the circulatory system; Z99.89 Dependence on other enabling machines and devices; Z79.82 Long term (current) use of aspirin; Z79.01 Long term (current) use of anticoagulants; Z79.899 Other long term (current) drug therapy; Z68.41 Body mass index [BMI] 40.0-44.9, adult

== ENCOUNTER → 2018-08-14 | Outpatient (CLI) | payer OTHER ==
--- NOTE | 2018-08-16 11:50 | MM ---
Reason for exam: screening (asymptomatic). Last mammogram was performed 1 year and 4 months ago. History: Patient is postmenopausal. Physical Findings: A clinical breast exam by your physician is recommended on an annual basis and results should be correlated with mammographic findings. MG Screening Mammo w CAD Bilateral CC and MLO view(s) were taken. Prior study comparison: March 30, 2017, bilateral MG screening mammo w CAD. January 23, 2015, bilateral MG screening mammo w CAD. There are scattered fibroglandular densities. No suspicious abnormality. No significant changes when compared with prior studies. ASSESSMENT: Negative, BI-RAD 1 RECOMMENDATION: Routine screening mammogram of both breasts in 1 year.
== END | disposition home or self-care (01) ==
LOC: RADMAMWWP 11:05
PROVIDERS: ATTEND Family Medicine
DX: Z12.31 Encounter for screening mammogram for malignant neoplasm of breast (principal)
CPT/HCPCS: 77067

== ENCOUNTER → 2018-08-30 | Outpatient (CLI) | payer OTHER ==
--- NOTE | 2018-08-30 09:43 | CTL ---
EXAMINATION TYPE: CT Low Dose Lung DATE OF EXAM ORDERED: 08/30/2018 HISTORY: . Lung cancer screening CT DLP: [address] CTDI: 3.29 mGy Automated exposure control for dose reduction was used. SCREENING VISIT: Initial COMPARISON: None TECHNIQUE: Low dose computed tomography scan was performed through the chest at 1 mm thick sections a nd reconstructed images in the coronal plane at [address] DIAGNOSTIC QUALITY: Limited, but interpretable FINDINGS: LUNG NODULES: None. LUNGS: COPD: Severity: None Fibrosis: Severity: None Lymph nodes: None Other findings: None RIGHT PLEURAL SPACE: Effusion: None Calcification: None Thickening: None Pneumothorax: None LEFT PLEURAL SPACE: Effusion: None Calcification: None Thickening: None Pneumothorax: None HEART: Heart Size: Normal Coronary calcification: Mild Pericardial effusion: None OTHER FINDINGS: Upper abdomen: Normal as visualized Bony thorax: Normal Supraclavicular region: Normal Other: The ascending thoracic aorta at the level the main pulmonary artery is 3.9 cm patent main pulm onary artery bifurcation is 3.6 cm. IMPRESSION: 1. Normal as visualized. Exam is limited. FOLLOW UP CT CHEST RECOMMENDATION: Screening low-dose CT per protocol CT LUNG RAD: Lung rad 1
== END | disposition home or self-care (01) ==
LOC: RADCTMAIN 08:13
PROVIDERS: ATTEND Family Medicine
DX: Z12.2 Encounter for screening for malignant neoplasm of respiratory organs (principal); Z87.891 Personal history of nicotine dependence

== ENCOUNTER → 2019-01-25 | Outpatient (CLI) | payer OTHER ==
--- NOTE | 2019-01-25 10:49 | MR ---
EXAMINATION TYPE: MR lumbar spine wo con DATE OF EXAM: 01/25/2019 COMPARISON: X-ray 01/12/2019 HISTORY: Low Back Pain TECHNIQUE: T1 and T2 axial and sagittal images of the lumbar spine are submitted. FINDINGS: There is no abnormal signal seen within the visualized spinal cord or paraspinal soft tissu es. Paraspinal soft tissue musculature is atrophic. A tiny filum terminale lipoma suspected. At L1-2 there is no degenerative disc disease or disc herniation. No Canal stenosis. Hypertrophic john nge of the facets. At L2-3 there is degenerative disc disease with broad-based central disc bulge. Hypertrophic change o f the ligamentum flavum and facets contribute to mild central stenosis and mild bilateral foraminal e ncroachment. At L3-4 there is degenerative disc disease with hypertrophic change of the facets and ligamentum flav um. No focal herniation. Broad-based disc bulging but no canal stenosis. Neural foramina remain paten t. At L4-5 there is advanced facet arthropathy with grade 1 anterolisthesis. Ligamentum flavum hypertrop hy noted. Disc bulging results in mild effacement of thecal sac. Mild bilateral foraminal encroachmen t. Mild canal stenosis. At L5-S1 there is facet arthropathy but no disc herniation or canal stenosis. Neural foramina remain patent. IMPRESSION: 1. Multilevel degenerative disc disease with grade 1 anterolisthesis L4 on L5. Multilevel facet arthr opathy. 2. Multilevel disc bulging with mild central stenosis L2-L3 secondary to hypertrophic changes and dis c bulging. 3. Multilevel mild foraminal encroachment.
== END | disposition home or self-care (01) ==
LOC: RADMRIMAIN 09:26
PROVIDERS: ATTEND Family Medicine
DX: M48.061 Spinal stenosis, lumbar region without neurogenic claudication (principal); M43.16 Spondylolisthesis, lumbar region; M51.36 Other intervertebral disc degeneration, lumbar region; M51.86 Other intervertebral disc disorders, lumbar region; M46.96 Unspecified inflammatory spondylopathy, lumbar region
CPT/HCPCS: 72148

== ENCOUNTER → 2019-09-08 | Outpatient (CLI) | payer OTHER ==
--- NOTE | 2019-09-08 11:19 | CT ---
EXAMINATION TYPE: CT ChestAbdPelvis wo con DATE OF EXAM: 09/08/2019 COMPARISON: Low-dose lung screening CT August 30, 2018 HISTORY: Cough, wheezing, shortness of breath, lump or mass Lt side of abd. CT DLP: 1897.1 mGycm. Automated Exposure Control for Dose Reduction was Utilized. TECHNIQUE: CT scan of the thorax, abdomen and pelvis is performed with oral but without IV contrast. FINDINGS: LUNGS: Redemonstration of elevated left hemidiaphragm. Background mild emphysematous change. Some sma ll areas of groundglass opacity right mid lung axial image 27 slight anterior aspect noted. Additiona l linear scarring and/or atelectasis anterior lingula. No pleural effusion or pneumothorax seen bilat erally. No suspicious masses. Roughly 7 mm nodule superior aspect right lower lobe image 28 identifie d in retrospect stable from prior coronal image 45. Prior low-dose lung screening CT suboptimal in th is patient due to body habitus. MEDIASTINUM: There are no greater than 1 cm hilar or mediastinal lymph nodes. No cardiomegaly or pe ricardial effusion is seen. Main pulmonary artery enlargement 3.6 cm axial image 25. Finding consist ent with underlying pulmonary hypertension. Coronary artery calcification redemonstrated which is not ed marked underlying coronary artery disease. LIVER/GB: Dependent density in gallbladder consistent with small stones and/or sludge. No surrounding inflammatory change. Liver is small in size with lobulated peripheral contour, underlying cirrhosis is felt present. No surrounding ascites seen. PANCREAS: No significant abnormality is seen. SPLEEN: Spleen noted is normal in size. ADRENALS: No significant abnormality is seen. KIDNEYS: Some cortical thinning bilaterally. No renal calculi. No hydronephrosis. BOWEL: Oral contrast reaches level of the mid transverse colon. No suspicious small or large bowel di latation. GENITAL ORGANS: Anteverted uterus. Some scattered pelvic phleboliths. Normal size ovaries. LYMPH NODES: No greater than 1cm abdominal or pelvic lymph nodes are appreciated. OSSEOUS STRUCTURES: Exaggerated thoracic kyphosis with prominent multilevel anterior and lateral spur ring. Mild to moderate joint space loss of both hips OTHER: Small fat-containing umbilical hernia. IMPRESSION: 1. No suspicious left-sided abdominal mass identified. 2. Redemonstration of elevated left hemidiaphragm and mild emphysematous change with some acute infil trate right midlung anteriorly thought present. Correlate clinically. 3. Stable 7 mm superior segment right lower lobe nodule. Consider CT follow-up in 1 year time to docu ment 2 year stability. No definitive new suspicious nodules or masses. 4. Hepatic cirrhosis thought present. No ascites or splenomegaly noted. Correlate clinically and with liver lab workup.
== END | disposition home or self-care (01) ==
LOC: RADCTMAIN 09:18
PROVIDERS: ATTEND Family Medicine
DX: J43.9 Emphysema, unspecified (principal); R91.1 Solitary pulmonary nodule; K74.60 Unspecified cirrhosis of liver; R19.09 Other intra-abdominal and pelvic swelling, mass and lump
CPT/HCPCS: 71250; 74176

== ENCOUNTER → 2019-09-28 | Outpatient (CLI) | payer OTHER | END | disposition home or self-care (01) | LOC: RADMRIMAIN 07:25 | PROVIDERS: ATTEND Nurse Practitioner | DX: Z53.9 Procedure and treatment not carried out, unspecified reason (principal) ==

== ENCOUNTER → 2019-12-13 | Outpatient (CLI) | payer OTHER | END | disposition home or self-care (01) | LOC: LABWHC1 09:09 | PROVIDERS: ATTEND Internal Medicine Gastroenterology | DX: Z11.59 Encounter for screening for other viral diseases (principal) ==

== ENCOUNTER 2019-12-21 10:11 | Day surgery (SDC) | payer OTHER ==
[2019-12-14 10:54] VITALS: BMI 43.8
[~2019-12-21 10:11] MED LIST changes: +DEXAMETHASONE SOD PHOSPHATE 10 MG/ML 1 ML VIAL IV ONE; +ONDANSETRON 4 MG/2 ML VIAL IVP ONE; -SODIUM CHLORIDE 0.9% 1,000 ML IV SCH
[2019-12-21 10:42] VITALS: RESP 18; TEMP 97
[2019-12-21] MEDS ORDERED: PROPOFOL 10 MG/ML 20 ML VIAL IV ONE (11:39)
[2019-12-21] MEDS ORDERED: LIDOCAINE 1% INJ 10MG/ML (20 ML MDV) ONE (11:39)
--- NOTE | 2019-12-21 11:49 | P.PCN ---
Date of Procedure: 12/21/19 Procedure(s) Performed: BRIEF HISTORY: Patient is a 59-year-old, pleasant, female diagnosed with cirrhosis of the liver and is scheduled for an upper endoscopy to screen for esophageal varices.. PROCEDURE PERFORMED: Esophagogastroduodenoscopy with biopsy PREOPERATIVE DIAGNOSIS: Cirrhosis of the liver screening for esophageal varices. IV sedation per anesthesia. PROCEDURE: After informed consent was obtained, the patient was brought into the endoscopy unit. IV sedation was administered by Anesthesia under continuous monitoring. Initially the Olympus GIF-140 video endoscope was inserted into the mouth. Esophagus intubated without any difficulty. It was gradually advanced into the stomach and duodenum and carefully examined. The bulb and the second part of the duodenum appeared normal. The scope at this time was withdrawn to the stomach, adequately insufflated with air, and upon careful examination, mucosa of the antrum, had a 5 mm polyp with a central pit noted which was biopsied. Rest of the body, cardia and the fundus appeared normal. The scope was then withdrawn into the esophagus. The GE junction was located at 39 cm from the incisors. The esophagus appeared normal. There were no erosions or ulcerations seen and the patient tolerated the procedure well. IMPRESSION: 1. No esophageal or gastric varices. 2. 5 mm antral polyp with central pit, status post biopsy. RECOMMENDATIONS: The findings of this examination were discussed with the patient as well as her family. She was advised to follow with the biopsy results. She was advised to have a repeat screening EGD in 2-3-years.
[2019-12-21 12:08] VITALS: BP 102/51; PULSE 58
== END 2019-12-21 12:30 | disposition home or self-care (01) ==
LOC: ORWHC2ENDO 10:11
PROVIDERS: ATTEND Internal Medicine Gastroenterology
DX: K31.7 Polyp of stomach and duodenum (principal); K74.60 Unspecified cirrhosis of liver; I11.0 Hypertensive heart disease with heart failure; I50.9 Heart failure, unspecified; E78.5 Hyperlipidemia, unspecified; I48.91 Unspecified atrial fibrillation; J44.9 Chronic obstructive pulmonary disease, unspecified; G47.33 Obstructive sleep apnea (adult) (pediatric); F41.8 Other specified anxiety disorders; K21.9 Gastro-esophageal reflux disease without esophagitis; Z97.2 Presence of dental prosthetic device (complete) (partial); Z79.01 Long term (current) use of anticoagulants; Z79.899 Other long term (current) drug therapy
CPT/HCPCS: 88305; 43239; J2001; J2704

== ENCOUNTER → 2020-05-31 | Outpatient (CLI) | payer OTHER ==
--- NOTE | 2020-05-31 17:35 | SFUN ---
SLEEP CENTER FOLLOW UP NOTE DATE OF SERVICE: 05/31/2020 This patient is a 59-year-old lady who has been followed in Sleep Center for treatment of obstructive sleep apnea-hypopnea syndrome. Patient is continuing to use her CPAP equipment every night. Recently her dog bit her hose. Otherwise, the patient covered the hole. She continues to use her CPAP equipment. [place] Sleepiness Scale today is 10. I checked her CPAP unit. CPAP pressure is 13 cm of water. For the last 6 months, usage was 111 nights out of 180 nights. Average usage was 6.9 hours per night. Leak was 36 L/minute. Apnea-hypopnea index was totally normal at 1.7. MEDICATIONS: Amiodarone, Entresto, alprazolam, atorvastatin, Lasix, metoprolol, Aldactone, Cymbalta, some inhalers for COPD. PHYSICAL EXAMINATION: GENERAL: A pleasant patient in no distress. VITAL SIGNS: BP 140/60, HR 60, RR 15, height 5 feet 9-1/2 inches, weight 302.2, BMI 43.9, temperature 98.2, oxygen saturation at room air 92%. HEENT: PERRLA, EOMI. Evaluation of oropharynx showed tongue protrudes midline. Low position of soft palate. NECK: Supple. No JVD. Thyroid is not palpable. LUNGS: Clear to percussion and to auscultation. Good air exchange. No wheezing or rhonchi. HEART: S1, S2 regular. No murmurs, gallops or rubs. ABDOMEN: Obese. EXTREMITIES: No clubbing or cyanosis. 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 Cranial nerves 2 to 7 intact. There is no fasciculation or atrophy. noted. No focal deficits observed. IMPRESSION: 1. Obstructive sleep apnea-hypopnea syndrome. Patient demonstrated borderline compliance with treatment, benefitting from treatment. 2. History of atrial fibrillation. 3. History of congestive heart failure with low ejection fraction. At present, ejection fraction is within normal range, according to the patient. 4. Hypertension. 5. Hyperlipidemia. 6. Anxiety. 7. Acid reflux. PLAN: 1. Patient will continue to use PAP equipment every night for the whole night. 2. Sleep hygiene with regular time in bed for at least 7-1/2 to 8 hours. 3. Precautions related to driving. No driving if feeling sleepiness. 4. I will maintain all necessary prescription for PAP supplies including mask, tube, filters. Prescription to replace supplies, including tube, as soon as possible. 5. Watching weight. 6. No driving if feeling sleepiness. 7. Follow-up visit in 6 months or earlier if patient has any problems. Thank you very much for allowing me to participate in the management of your patient. Sincerely, Diego David MD, PhD, FAASM Diplomat of [place] [employer] [place] [employer] Coach Tour Driver of [facility] [place] MMODL / IJN: [id number] /
== END | disposition home or self-care (01) ==
LOC: SLEEP 10:28
PROVIDERS: ATTEND Internal Medicine
DX: G47.33 Obstructive sleep apnea (adult) (pediatric) (principal); I10 Essential (primary) hypertension; K21.9 Gastro-esophageal reflux disease without esophagitis; F41.9 Anxiety disorder, unspecified; Z99.89 Dependence on other enabling machines and devices; E78.5 Hyperlipidemia, unspecified

== ENCOUNTER → 2020-06-04 | Outpatient (CLI) | payer OTHER ==
[2020-06-04 08:30] LABS: Basophils # (A) 0.1 k/uL (0-0.2); Basophils % (A) 1 %; Eosinophils # (A) 0.3 k/uL (0-0.7); Eosinophils % (A) 3 %; HCT 45.4 % (34.0-46.0); HGB 14.9 gm/dL (11.4-16.0); Lymphocytes # (A) 1.7 k/uL (1.0-4.8); Lymphocytes % (A) 18 %; MCH 30.6 pg (25.0-35.0); MCHC 32.8 g/dL (31.0-37.0); MCV 93.5 fL (80.0-100.0); Mean Platelet Volume 8.3; Monocytes # (A) 0.5 k/uL (0-1.0); Monocytes % (A) 6 %; Neutrophils # (A) 6.8 k/uL (1.3-7.7); Neutrophils % (A) 72 %; Platelet Count 254 k/uL (150-450); RBC 4.86 m/uL (3.80-5.40); RDW 13.6 % (11.5-15.5); WBC 9.5 k/uL (3.8-10.6)
[2020-06-04 08:40] LABS: Albumin 3.8 g/dL (3.5-5.0); Magnesium 2.1 mg/dL (1.6-2.3); Potassium 5.3 mmol/L (3.5-5.1); Total Bilirubin 0.6 mg/dL (0.2-1.3); Total Protein 6.9 g/dL (6.3-8.2)
[2020-06-04 08:42] LABS: INR 0.9 (<1.2); Prothrombin Time 9.9 sec (9.0-12.0)
--- NOTE | 2020-06-04 10:02 | US ---
EXAMINATION TYPE: US liver DATE OF EXAM: 06/04/2020 COMPARISON: NONE CLINICAL HISTORY: K74.60 Unspecified cirrhosis of the liver. Cirrhosis. Exam limitations due to body habitus EXAM MEASUREMENTS: Liver Length: 16.3 cm Gallbladder Wall: .2 cm CBD: .5 cm Right Kidney: 11.1 x 3.9 x 5.1 cm Pancreas: Tail obscured by overlying bowel gas Liver: Increased attenuation compatible with moderate fatty infiltration. No discrete masses are emiliano dent. Gallbladder: wnl Evidence for sonographic Tsai's sign: No CBD: wnl Right Kidney: wnl IMPRESSION: 1. Hepatomegaly with moderate fatty infiltration of the liver. Typical ultrasound changes for exam c irrhosis is not evident.
[2020-06-04 17:13] LABS: Hemoglobin A1C 6.3 % (4.0-6.0)
== END | disposition home or self-care (01) ==
LOC: RADUSWWP 06:55
PROVIDERS: ATTEND Nurse Practitioner
DX: K76.0 Fatty (change of) liver, not elsewhere classified (principal); K74.60 Unspecified cirrhosis of liver; I48.91 Unspecified atrial fibrillation; E66.9 Obesity, unspecified; I11.0 Hypertensive heart disease with heart failure; I50.9 Heart failure, unspecified; Z79.899 Other long term (current) drug therapy
CPT/HCPCS: 76705; 80053; 80061; 82105; 82306; 82550; 83036; 83615; 83735; 84443; 85025; 85610

== ENCOUNTER → 2020-09-10 | Outpatient (CLI) | payer OTHER ==
--- NOTE | 2020-09-10 10:52 | CT ---
EXAMINATION TYPE: CT chest wo con DATE OF EXAM: 09/10/2020 COMPARISON: Chest CT HISTORY: Lung nodule, COPD. CT DLP: 1150 mGycm. Automated Exposure Control for Dose Reduction was Utilized. TECHNIQUE: CT scan of the thorax is performed without IV contrast. FINDINGS: LUNGS: Elevated left hemidiaphragm is redemonstrated. Mild underlying emphysematous change redemonstr ated. Scattered micronodularity is more prominent on current study bilaterally. Some nodules measurin g 3 to 4 mm in size. Largest measured nodule superior medial aspect right lower lobe measures 6 mm ax ial image 25 grossly stable from prior. There is a new 4 to 5 mm posterior right basilar nodule axial image 40 noted. No pleural effusion or pneumothorax seen bilaterally. Focal anterior left basilar sc arring redemonstrated. MEDIASTINUM: Lack of IV contrast is noted to limit evaluation for mediastinal and especially hilar ad enopathy. There are no definitive new greater than 1 cm hilar or mediastinal lymph nodes. No cardio megaly or pericardial effusion is seen. Coronary artery calcification redemonstrated. Main pulmonary artery remains enlarged measuring 3.5 cm axial image 26. CT findings consistent with underlying pulmo nary artery hypertension. OTHER: Somewhat cirrhotic morphology to the liver with lobulated peripheral contour redemonstrated. S ome punctate calcifications along the posterior-superior aspect redemonstrated. Moderate multilevel a nterior lateral spurring in the mid to lower thoracic spine. Generalized pectoralis muscular atrophy redemonstrated. IMPRESSION: Worsening scattered micronodules bilaterally. Some stable small to tiny bilateral nodules . Some additional new nodules up to 4 to 5 mm in size. No new or enlarging greater than 5 mm nodules. Follow-up advised as per Fleischner Society recommendations. Advise ruling out infectious and/or inf lammatory etiology.
== END ==
LOC: RADCTMAIN 08:58
PROVIDERS: ATTEND Family Medicine
DX: R91.8 Other nonspecific abnormal finding of lung field (principal); J44.9 Chronic obstructive pulmonary disease, unspecified
CPT/HCPCS: 71250

== ENCOUNTER → 2020-09-21 | Outpatient (CLI) | payer OTHER ==
--- NOTE | 2020-09-22 10:19 | PE ---
EXAMINATION TYPE: PET CT fusion skull to thigh DATE OF EXAM: 09/21/2020 COMPARISON: Chest CT September 10 and older CTs. HISTORY: Abnormal CT, lung nodule. TECHNIQUE: Following the intravenous administration of 12.73 mCi of F-18 FDG, whole body images are performed from the skull base to the midthigh. Images are reviewed on the computer in the coronal, a xial, and sagittal planes. Reconstructed rotating images are created on independent workstation and reviewed on the computer. A localization and attenuation correction CT is performed in conjunction with the PET scan. Blood glucose level equals 107. SCAN: Initial Scan FINDINGS: SKULL BASE AND NECK: No suspicious hypermetabolic uptake. Mild symmetric uptake at level of vocal co rds and base of tongue presumed physiologic. CHEST, MEDIASTINUM, AND HILAR REGION: Scattered small pulmonary nodules redemonstrated, for reference superior medial 5 mm nodule axial image 104. Stable 4 mm posterior right lower lobe nodule image 130 . No abnormal hypermetabolic uptake seen. ABDOMEN AND PELVIS: Normal excretion. No abnormal hypermetabolic uptake noted. OSSEOUS STRUCTURES: No abnormal hypermetabolic uptake noted. OTHER CT: Elevated left hemidiaphragm redemonstrated. Low lung volumes. Mild underlying emphysematous change. Moderate calcified plaque bilateral carotid bulb level. Slight grade 1 anterolisthesis L4 on L5. Mild/moderate calcified plaque of the abdominal aorta. IMPRESSION: No suspicious hypermetabolic uptake to suggest malignancy. Advise repeat CT in 6-12 month s time to reassess subcentimeter nodules.
== END | disposition home or self-care (01) ==
LOC: RADPETMAIN 12:34
PROVIDERS: ATTEND Internal Medicine Critical Care Medicine
DX: R91.8 Other nonspecific abnormal finding of lung field (principal)
CPT/HCPCS: 78815; A9552

== ENCOUNTER → 2021-05-30 | Outpatient (CLI) | payer OTHER ==
--- NOTE | 2021-05-30 21:27 | SFUN ---
SLEEP CENTER FOLLOW UP NOTE DATE OF SERVICE: 05/30/2021 This 60-year-old lady has been followed in Sleep Center for treatment of obstructive sleep apnea-hypopnea syndrome. Patient continues to use her CPAP equipment every night. She needs to replace her supplies. No snoring with the machine. [place] Sleepiness Scale today is 7, which is normal. I checked her CPAP unit. CPAP pressure is 13 cm of water. Usage is 21/30 nights, average 7.5 hours per night. Leak is 29 L/minute. Apnea-hypopnea index is 1.3, which is totally normal. MEDICATIONS: 1. Lasix 40 mg once a day. 2. 25 mg once a day. 3. Eliquis 5 mg twice a day. 4. Entresto twice a day. 5. Cymbalta 30 mg once a day. 6. Atorvastatin 40 mg once a day. 7. Amiodarone 100 mg once a day. 8. Metoprolol 50 mg twice a day. 9. Xanax 0.5 mg up to 3 times a day as needed. 10. 5 mg once a day. 11.Omeprazole 20 mg once a day. 12.Vitamin D and B supplements. PHYSICAL EXAMINATION: GENERAL: Pleasant lady without distress. VITAL SIGNS: BP 117/75, HR 62, RR 15, height 5 feet 9 inches, weight 278, BMI 41, temperature 98.6, oxygen saturation at room air 95%. HEENT: PERRLA, EOMI, evaluation of oropharynx showed tongue protrudes midline. Low position of soft palate. NECK: Supple, no JVD. Thyroid is not palpable. LUNGS: Clear to percussion and to auscultation. Good air exchange. No wheezing or rhonchi. HEART: S1, S2 regular. No murmurs, gallops, or rubs. ABDOMEN: Obese. EXTREMITIES: No clubbing or cyanosis. MAPPER: Awake, alert, and oriented X3. Cranial nerves 2 to 7 intact. There is no fasciculation or atrophy. noted. No focal deficits observed. IMPRESSION: 1. Obstructive sleep apnea-hypopnea syndrome. Patient demonstrated again borderline compliance with treatment. Normal respiration on CPAP. 2. History of atrial fibrillation. 3. History of congestive heart failure with low ejection fraction in the past. 4. Hypertension. 5. Hyperlipidemia. 6. Anxiety. 7. Acid reflux. PLAN: 1. Patient will continue to use PAP equipment every night for the whole night. 2. Sleep hygiene with regular time in bed for at least 7-1/2 to 8 hours. 3. Precautions related to driving. No driving if feeling sleepiness. 4. I will maintain all necessary prescription for PAP supplies including mask, tube, filters. 5. Watching weight. 6. Follow-up visit in 6 months or earlier if patient has any problems. Thank you very much for allowing me to participate in the management of your patient. Sincerely, Diego David MD, PhD, FAASM Diplomat of [place] [employer] Sleep Medicine Board of [place] [employer] Dispatcher Service Or Work of [facility] [place] MMCHEYL / AMERICON: [phone] /
== END ==
LOC: SLEEP 09:59
PROVIDERS: ATTEND Internal Medicine
DX: G47.33 Obstructive sleep apnea (adult) (pediatric) (principal); I48.91 Unspecified atrial fibrillation; I11.0 Hypertensive heart disease with heart failure; I50.20 Unspecified systolic (congestive) heart failure; E78.5 Hyperlipidemia, unspecified; F41.9 Anxiety disorder, unspecified; K21.9 Gastro-esophageal reflux disease without esophagitis; F17.200 Nicotine dependence, unspecified, uncomplicated; Z79.01 Long term (current) use of anticoagulants; Z79.899 Other long term (current) drug therapy

== ENCOUNTER → 2021-06-28 | Outpatient (CLI) | payer OTHER ==
--- NOTE | 2021-06-28 07:29 | US ---
EXAMINATION TYPE: US liver DATE OF EXAM: 06/28/2021 COMPARISON: 2020 liver June 04, 2020. CT the very 30/01/2020 CLINICAL HISTORY: K74.60 CIRRHOSIS OF LIVER. EXAM MEASUREMENTS: Liver Length: 18.2 cm Gallbladder Wall: 0.2 cm CBD: 0.4 cm Right Kidney: 10.5x4.8x4.2 cm Vary difficult due to patient body habitus Pancreas: Obscured by bowel gas Liver: Heterogenous, Increased attenuation, Gallbladder: Gallstone 0.5cm Evidence for sonographic Tsai's sign: No CBD: wnl Right Kidney: wnl Exam suboptimal due to large body habitus. Poor visualization of pancreas on images saved. Visualized liver remains markedly heterogeneously hyperechoic with lobulated contour. No surrounding ascites. E valuation for focal masses suboptimal due to the heterogeneity. Single intraluminal gallstone thought present during real-time scanning. No right-sided hydronephrosis. IMPRESSION: Heterogeneous hyperechoic appearance of liver with lobulated contour consistent with unde rlying hepatocellular disease redemonstrated. No new ascites is evident.
== END | disposition home or self-care (01) ==
LOC: RADUSWWP 06:57
PROVIDERS: ATTEND Internal Medicine Gastroenterology
DX: K74.60 Unspecified cirrhosis of liver (principal)
CPT/HCPCS: 76705

== ENCOUNTER → 2021-09-10 | Outpatient (CLI) | payer OTHER ==
--- NOTE | 2021-09-11 09:14 | MM ---
Reason for exam: screening (asymptomatic). Last mammogram was performed 1 year and 6 months ago. History: Patient is postmenopausal. Physical Findings: A clinical breast exam by your physician is recommended on an annual basis and results should be correlated with mammographic findings. MG Screening Mammo w CAD Bilateral CC and MLO view(s) were taken. XCCL view(s) were taken of the left breast. Prior study comparison: March 08, 2020, bilateral MG screening mammo w CAD. August 14, 2018, bilateral MG screening mammo w CAD. There are scattered fibroglandular densities. There is no discrete abnormality. No significant changes when compared with prior studies. ASSESSMENT: Negative, BI-RAD 1 RECOMMENDATION: Routine screening mammogram of both breasts in 1 year.
== END | disposition home or self-care (01) ==
LOC: RADMAMWWP 07:01
PROVIDERS: ATTEND Family Medicine
DX: Z12.31 Encounter for screening mammogram for malignant neoplasm of breast (principal); Z78.0 Asymptomatic menopausal state
CPT/HCPCS: 77067

== ENCOUNTER → 2021-09-27 | Outpatient (CLI) | payer OTHER ==
--- NOTE | 2021-09-27 08:59 | CT ---
EXAMINATION TYPE: CT chest wo con DATE OF EXAM: 09/27/2021 COMPARISON: 09/21/2020, 09/08/2019 HISTORY: 61-year-old female J44.9, COPD TECHNIQUE: Contiguous axial scanning of the chest without IV contrast. Coronal and sagittal reconstru ctions performed. CT DLP: 724 mGycm Automated exposure control for dose reduction was used. FINDINGS: Heart normal size without pericardial effusion. Prominent epicardial fat pad. LAD and RCA coronary ca lcifications are present. Mild ectasia ascending aorta 3.7 cm. Mild atherosclerotic arch calcifications. Probable mild atelecta tic narrowing at the origin of the left common carotid artery. Conventional arch vessel branching nicolette viola. No thoracic lymphadenopathy by CT size criteria. Mild emphysematous change. Unchanged chronic volume loss inferior lingula. A few 6 mm and smaller pulmonary nodules are redemonstrated. A few of the smaller nodules such as in the lateral right midlung and left upper lobe have resolved. No consolidation or pleural effusion otherwise seen. Punctate calcifications posterior right hepatic dome are unchanged. Slight hepatic contour nodularity is demonstrated. Tiny hilar splenule. Bones: DISH in the lower thoracic spine. IMPRESSION: 1. COPD WITH MILD EMPHYSEMA. 2. A FEW 6 MM AND SMALLER PULMONARY NODULES ARE REDEMONSTRATED AND ARE UNCHANGED SUGGESTING A BENIGN ETIOLOGY. 3. SOME OF THE SMALLER NODULES SEEN ON 09/10/2020 HAVE RESOLVED. NO DEFINITE NEW PULMONARY NODULE. GIVE N PATIENT'S INCREASED RISK FOR DEVELOPMENT OF LUNG CANCER, CONSIDER ANNUAL LUNG CANCER SCREENING CT. 4. CAD WITH LAD AND RCA CORONARY ARTERY CALCIFICATIONS. 5. HEPATIC CONTOUR NODULARITY. SUSPECT UNDERLYING CIRRHOSIS. FURTHER EVALUATION/WORKUP RECOMMENDED IF NO KNOWN DIAGNOSIS.
== END | disposition home or self-care (01) ==
LOC: RADCTMAIN 07:02
PROVIDERS: ATTEND Internal Medicine Critical Care Medicine
DX: J43.9 Emphysema, unspecified (principal); R91.8 Other nonspecific abnormal finding of lung field; I25.10 Atherosclerotic heart disease of native coronary artery without angina pectoris; K76.89 Other specified diseases of liver
CPT/HCPCS: 71250

== ENCOUNTER → 2021-11-11 | Outpatient (CLI) | payer OTHER ==
[2021-11-11 10:47] LABS: Basophils # (A) 0.04 X 10*3/uL (0.00-0.10); Basophils % (A) 0.4 %; Eosinophils # (A) 0.23 X 10*3/uL (0.04-0.35); Eosinophils % (A) 2.4 %; HCT 43.6 % (37.2-46.3); HGB 13.4 g/dL (12.0-15.0); Immature Grans, Automated 0.3 %; Lymphocytes # (A) 1.51 X 10*3/uL (0.90-5.00); Lymphocytes % (A) 15.8 %; MCH 29.1 pg (27.0-32.0); MCHC 30.7 g/dL (32.0-37.0); MCV 94.8 fL (80.0-97.0); Mean Platelet Volume 11.6 fL (9.5-12.2); Monocytes # (A) 0.55 X 10*3/uL (0.20-1.00); Monocytes % (A) 5.8 %; NRBC Per 100 WBC 0 /100 WBCS (0.0-0.0); Neutrophils # (A) 7.19 X 10*3/uL (1.80-7.70); Neutrophils % (A) 75.3 %; Platelet Count 266 X 10*3/uL (140-440); RDW 14.3 % (11.5-14.5); WBC 9.55 X 10*3/uL (4.50-10.00)
[2021-11-11 11:14] LABS: ALT 27 U/L (8-44); AST 19 U/L (13-35); African American GFR (CKD) 81.1 (60.0-200.0); Albumin 3.7 g/dL (3.8-4.9); Albumin/Globulin Ratio 1.09 (1.60-3.17); Alkaline Phosphatase 98 U/L (41-126); BUN/Creat Ratio 19.11 Ratio (12.00-20.00); Blood Urea Nitrogen 17.2 mg/dL (9.0-27.0); Calcium 9.4 mg/dL (8.7-10.3); Carbon Dioxide 28.3 mmol/L (20.0-27.5); Chloride 103 mmol/L (96-109); Chol/HDL Ratio 4.46 Ratio; Globulin 3.4 g/dL (1.6-3.3); Glucose 121 mg/dL (70-110); LDL Cholesterol,Calculated 117.2 mg/dL (0.0-131.0); Magnesium 2.1 mg/dL (1.5-2.4); Potassium 4.5 mmol/L (3.5-5.5); Sodium 141 mmol/L (135-145); Total Protein 7.1 g/dL (6.2-8.2); VLDL Calculation 19.28 mg/dL (5.00-40.00)
== END | disposition home or self-care (01) ==
LOC: LABWHC1 06:59
PROVIDERS: ATTEND Internal Medicine Gastroenterology
DX: I10 Essential (primary) hypertension (principal); I48.0 Paroxysmal atrial fibrillation; E78.5 Hyperlipidemia, unspecified; K75.81 Nonalcoholic steatohepatitis (NASH); K74.00 Hepatic fibrosis, unspecified
CPT/HCPCS: 36415; 80053; 80061; 82105; 83036; 83735; 84443; 85025

== ENCOUNTER → 2021-11-19 | Outpatient (CLI) | payer OTHER ==
[2021-11-19 08:51] VITALS: BP 130/67; PULSE 60; RESP 17; TEMP 98.5
--- NOTE | 2021-11-19 09:38 | P.HPOB ---
History of Present Illness H&P Date: 11/19/21 Chief Complaint: The patient is here for her routine gynecologic exam. This is a 61-year-old with an LMP of 2009. The patient is here to establish with this office. It has been about 4 years since her last pelvic exam. She is without gynecologic complaints and denies any postmenopausal bleeding. Review of Systems The patient's weight has been stable over the last year. She denies respiratory, cardiac, or G.I. problems. She states she gained about 50 pounds in 2017 and had lost some of that weight prior to one year ago. Past Medical History Past Medical History: Atrial Fibrillation, Heart Failure, COPD, GERD/Reflux, Hyperlipidemia, Hypertension, Liver Disease, Sleep Apnea/CPAP/BIPAP Additional Past Medical History / Comment(s): Morbid obesity, obstructive sleep apnea, cardiomyopathy nonischemic with ejection fraction of less than 20%, chronic atrial fibrillation, chronic lower extremity edema, fatty liver/cirrhosis. Pre-diabetes. 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 History of Any Multi-Drug Resistant Organisms: None Reported Past Surgical History: Tubal Ligation Additional Past Surgical History / Comment(s): cardioversion for afib 01/26/17. Colonoscopy 2017(next after 10y) Past Anesthesia/Blood Transfusion Reactions: No Reported Reaction Past Psychological History: Anxiety, Depression (She denies current depression with medication.) Additional Psychological History / Comment(s): . Smoking Status: Current every day smoker (4 cigarettes per day but trying to quit.) Past Alcohol Use History: None Reported Additional Past Alcohol Use History / Comment(s): Pt started smoking in 1974 and was 1 ppd smoker. Recently she has cut back to 3 cigarettes/day. Past Drug Use History: Marijuana Additional Drug Use History / Comment(s): History of marijuana use but denies use for more than 20 years. Additional History: She is and is not seeing anybody at this time. She has not been sexually active for several years. She does not currently working outside of the home. - Past Family History Mother Family Medical History: Deep Vein Thrombosis (DVT) Additional Family Medical History / Comment(s): Mother had cirrhosis. She at the age of 71yrs. Maternal grandmother had MN. Father Family Medical History: Cancer Additional Family Medical History / Comment(s): Father had mesothelioma. Medications and Allergies Home Medications Medication Instructions Recorded Confirmed Type Albuterol Inhaler (Mhu) [Ventolin 2 puff INHALATION RT-Q4H PRN 11/10/16 11/19/21 History Hfa Inhaler (Mhu)] Cholecalciferol [Vitamin D3 (25 1,000 unit PO DAILY 11/10/16 11/19/21 History Mcg = 1000 Iu)] DULoxetine HCL [Cymbalta] 30 mg PO HS 11/10/16 11/19/21 History Vitamin B Complex 1 cap PO DAILY 11/10/16 11/19/21 History ALPRAZolam [Xanax] 0.25 mg PO Q6HR PRN #0 tab 11/16/16 11/19/21 Rx Apixaban [Eliquis] 5 mg PO BID tab 11/16/16 11/19/21 Rx Furosemide [Lasix] 40 mg PO DAILY tab 11/16/16 11/19/21 Rx Metoprolol Tartrate [Lopressor] 50 mg PO BID tab 11/16/16 11/19/21 Rx Spironolactone [Aldactone] 25 mg PO DAILY tab 11/16/16 11/19/21 Rx Amiodarone [Cordarone] 100 mg PO DAILY 12/14/19 11/19/21 History Atorvastatin [Lipitor] 20 mg PO HS 12/14/19 11/19/21 History Omeprazole [PriLOSEC] 20 mg PO AC-BRKFST 12/14/19 11/19/21 History Sacubitril/Valsartan [Entresto 49 1 each PO BID 12/14/19 11/19/21 History mg-51 mg Tablet] Umeclidinium [place] [Incruse 62.5 mcg INHALATION DAILY 12/14/19 11/19/21 History Ellipta] Solifenacin Succinate [Vesicare] 5 mg PO DAILY 11/19/21 11/19/21 History Allergies Allergy/AdvReac Type Severity Reaction Status Date / Time No Known Allergies Allergy Verified 11/19/21 08:44 Exam Vital Signs Temp Pulse Resp BP Pulse Ox 11/19/21 08:49 98.5 F 60 17 130/67 97 Intake and Output 11/18/21 11/19/21 11/19/21 22:59 06:59 14:59 Other: Weight 128.82 kg Height 5 feet 9 inches, weight 284 pounds, BMI 41.9. This is a well-developed well-nourished heavyset white female who is alert and oriented times 3 in no acute distress. HEENT: Within normal limits. NECK: Supple without mass or thyromegaly. CHEST AND LUNGS: Clear to auscultation. HEART: Regular rate and rhythm. BREASTS: Are without mass or discharge. AXILLARY EXAM: Negative for adenopathy. BACK: Negative for CVA tenderness. ABDOMEN: Soft, obese, nontender, without palpable masses. PELVIC EXAM: Normal external genitalia with minimal atrophy. Cervix and vagina appear normal with minimal atrophy. There is no unusual discharge. There is no evidence of prolapse. The uterus is midposition, nongravid size and nontender. There are no palpable adnexal masses or tenderness. Bimanual examination is somewhat limited secondary to her size. RECTAL EXAM: Rectovaginal exam is negative for mass or tenderness and is negative for occult blood. EXTREMITIES: Nontender. IMPRESSION: 1. 61-year-old menopausal female with normal gynecologic exam. 2. Multiple medical problems. 3. Smoker. PLAN: 1. Pap smear cotest was performed. 2. Self breast awareness was discussed with the patient. We have also discussed symptoms associated with inflammatory breast cancer. 3. Screening mammogram was done on 09/10/2021 and was benign. She will do this yearly. 4. Osteoporosis prevention was discussed. I have stressed the importance of adequate calcium, vitamin D and regular exercise. Recommended amounts of calcium and vitamin D were also discussed. I have recommended bone density testing at age 62. We will plan on doing this next year. 5. She has not received a Covid vaccination. She did have Covid in 2020. She understands the CDC recommends vaccination. She will consider this. 6. I have recommended that she try to quit smoking altogether. She states she has decreased her cigarette use from approximately one pack per day down to 4 cigarettes per day. We have discussed many reasons why it is important to quit. 7. She was advised to return in one year for her annual well woman exam.
== END ==
LOC: WWCWWP 08:27
PROVIDERS: ATTEND Obstetrics & Gynecology
DX: Z01.419 Encounter for gynecological examination (general) (routine) without abnormal findings (principal); I11.0 Hypertensive heart disease with heart failure; E78.5 Hyperlipidemia, unspecified; E66.01 Morbid (severe) obesity due to excess calories; I50.9 Heart failure, unspecified; J44.9 Chronic obstructive pulmonary disease, unspecified; I48.20 Chronic atrial fibrillation, unspecified; F17.210 Nicotine dependence, cigarettes, uncomplicated; F41.9 Anxiety disorder, unspecified; F32.A Depression, unspecified; Z78.0 Asymptomatic menopausal state; Z68.41 Body mass index [BMI] 40.0-44.9, adult; Z79.51 Long term (current) use of inhaled steroids

== ENCOUNTER → 2022-04-21 | Outpatient (CLI) | payer OTHER ==
--- NOTE | 2022-04-21 07:34 | US ---
EXAMINATION TYPE: US liver DATE OF EXAM: 04/21/2022 COMPARISON: US liver 06/28/2021, PET/CT 09/21/2020. CLINICAL HISTORY: K74.60 UNSPECIFIED CIRRHOSIS OF LIVER. F/U, pt has history of cirrhosis TECHNIQUE: Multiple sonographic images of the right upper quadrant are obtained. FINDINGS: EXAM MEASUREMENTS: Liver Length: 17.6 cm Gallbladder Wall: 0.3 cm CBD: 0.4 cm Right Kidney: 10.6 x 4.1 x 4.4 cm Pancreas: Body wnl, head and tail difficult to visualize due to patient's body habitus. Liver: Nodular contour, heterogeneous echotexture. This appearance limits evaluation for small intr ahepatic masses. No definitive masses identified. No surrounding ascites. Gallbladder: possible, small gravel stones at fundus as visualized on prior. No wall thickening or p ericolic fluid. Evidence for sonographic Tsai's sign: No CBD: wnl Right Kidney: wnl . No hydronephrosis, shadowing calculi, or contour deforming solid mass. IMPRESSION: 1. Hepatic cirrhosis redemonstrated without definitive lesion identified. No ascites visualized. 2. Cholelithiasis without evidence for acute cholecystitis.
== END | disposition home or self-care (01) ==
LOC: RADUSWWP 07:01
PROVIDERS: ATTEND Internal Medicine Gastroenterology
DX: K74.60 Unspecified cirrhosis of liver (principal); K80.20 Calculus of gallbladder without cholecystitis without obstruction
CPT/HCPCS: 76705

== ENCOUNTER → 2022-05-20 | Outpatient (CLI) | payer OTHER ==
[2022-05-20 10:53] LABS: Basophils # (A) 0.05 X 10*3/uL (0.00-0.10); Basophils % (A) 0.5 %; Eosinophils # (A) 0.34 X 10*3/uL (0.04-0.35); Eosinophils % (A) 3.3 %; HCT 45.2 % (37.2-46.3); Immature Grans, Automated 0.3 %; Lymphocytes # (A) 1.61 X 10*3/uL (0.90-5.00); Lymphocytes % (A) 15.6 %; MCH 29.4 pg (27.0-32.0); MCV 94.8 fL (80.0-97.0); Mean Platelet Volume 12.3 fL (9.5-12.2); Monocytes % (A) 5.8 %; NRBC Per 100 WBC 0 /100 WBCS (0.0-0.0); Neutrophils % (A) 74.5 %; Platelet Count 226 X 10*3/uL (140-440); RBC 4.77 X 10*6/uL (4.10-5.20); RDW 14.6 % (11.5-14.5); WBC 10.33 X 10*3/uL (4.50-10.00)
[2022-05-20 11:24] LABS: ALT 29 U/L (8-44); AST 20 U/L (13-35); African American GFR (CKD) 71.4 (60.0-200.0); Albumin/Globulin Ratio 1.33 (1.60-3.17); Alkaline Phosphatase 121 U/L (41-126); Blood Urea Nitrogen 20.1 mg/dL (9.0-27.0); Calcium 9.6 mg/dL (8.7-10.3); Carbon Dioxide 30.1 mmol/L (20.0-27.5); Chloride 105 mmol/L (96-109); Chol/HDL Ratio 3.63 Ratio; Glucose 120 mg/dL (70-110); Non-African American GFR(CKD) 61.6 (60.0-200.0); Potassium 4.8 mmol/L (3.5-5.5); Sodium 144 mmol/L (135-145); VLDL Calculation 16.16 mg/dL (5.00-40.00)
== END | disposition home or self-care (01) ==
LOC: LABWHC1 07:07
PROVIDERS: ATTEND Internal Medicine
DX: E88.81 Metabolic syndrome and other insulin resistance (principal); I48.91 Unspecified atrial fibrillation; K74.60 Unspecified cirrhosis of liver
CPT/HCPCS: 36415; 80053; 80061; 82105; 83036; 84443; 85025

== ENCOUNTER → 2022-05-21 | Outpatient (CLI) | payer OTHER ==
--- NOTE | 2022-05-21 11:51 | P.PN ---
Subjective DATE: 05/21/2022 FOLLOW UP VISIT. Patient with obstructive sleep apnea hypopnea syndrome return to sleep center for follow-up visit. Information from previous visit have been reviewed. Patient is using PAP equipment every night for the whole night, getting PAP supplies in time. The patient does not have significant problems with the mask, PAP unit and humidification. [place] sleepiness scale is slightly increased to 12. I checked PAP unit. PAP unit pressure 13 cm H2O. Usage is for the last months 98 % for more then 4 hours, average 9.4 hours per night. Leak is 41 l/m, which is in increased range. Apnea Hypopnea Index is 1.4, which is normal. MEDICATIONS:1. Lasix 40 mg once a day 2. Spironolactone once a day 3. Entresto 4. Eliquis 5 mg once a day 5. Atorvastatin 80 mg once a day 6. Amiodarone 100 mg once a day 7. Metoprolol 50 mg once a day 8. Duloxetine 30 mg once a day During physical exam: GENERAL: A pleasant patient without any distress. VITAL SIGNS: BP 117/54, HR 68, RR 16 , weight 284, 6 pounds more than during previous visit, body mass index 41.4, temperature 98.3, oxygen saturation at room air 96 % . HEENT: PERRLA, EOMI.low position of soft palate, Mallapati3 . NECK: Supple. No JVD. LUNGS: Clear to percussion and to auscultation. Good air exchange. No wheezing or rhonchi. HEART: S1, S2 regular. ABDOMEN: Soft and nontender. Obese EXTREMITIES: No clubbing or cyanosis. SERVICENOW ADMINISTRATOR: Awake, alert, and oriented x3. No focal deficit. Impressions: 1. Obstructive sleep apnea-hypopnea syndrome. Patient demonstrated good compliance with treatment, benefiting from treatment. 2. Obesity, body mass index 49.4. 3. History of atrial fibrillation. 4. History of CHF with low ejection fraction in the past. 5. Hypertension. 6. Anxiety. 7. Hyperlipidemia. 8. Acid reflux. Plan: 1. Continue using PAP equipment every night for the whole night. 2. To change air filter at least 1-2 times per month. 3. PAP unit should stay lower then position of the head. 4. Advised patient to remove all remaining water from humidifier canister daily and make it dry after each usage. Refill canister with fresh distilled water before each usage. 5. Sleep hygiene with regular time in bed for at least 8 hours. 6. Precautions related to driving. No driving if feel any sleepiness. 7. I will maintain prescription for PAP supplies including mask, tube, filters. 8. Follow up visit in 6 months or earlier if patient has any problems. 9. Losing weight. Thank you very much for allowing me to participate in the management of your patient. Diego David MD, PhD, FAASM. Diplomat of [place] [employer], Sleep Medicine Board by [employer] [facility] [facility] [place]
== END ==
LOC: SLEEP 10:06
PROVIDERS: ATTEND Internal Medicine
DX: G47.33 Obstructive sleep apnea (adult) (pediatric) (principal); Z99.89 Dependence on other enabling machines and devices; E66.9 Obesity, unspecified; Z68.42 Body mass index [BMI] 45.0-49.9, adult; I10 Essential (primary) hypertension; E78.5 Hyperlipidemia, unspecified; K21.9 Gastro-esophageal reflux disease without esophagitis; F41.9 Anxiety disorder, unspecified; Z86.79 Personal history of other diseases of the circulatory system; F17.200 Nicotine dependence, unspecified, uncomplicated
CPT/HCPCS: 99212

== ENCOUNTER → 2022-11-17 | Outpatient (CLI) | payer OTHER ==
--- NOTE | 2022-11-17 07:43 | US ---
EXAMINATION TYPE: US liver DATE OF EXAM: 11/17/2022 COMPARISON: 04/21/2022 CLINICAL INDICATION: Female, 62 years old with history of K74.60; Cirrhosis TECHNIQUE: Multiple sonographic images of the right upper quadrant are obtained. FINDINGS: EXAM MEASUREMENTS: Liver Length: 16.9 cm Gallbladder Wall: 0.3 cm CBD: 0.4 cm Right Kidney: 10.3 x 4.8 x 5.5 cm Clay Burner notes:Difficult and limited study due to patient body habitus Pancreas: Only portions of the pancreatic body are seen. Remainder is obscured by bowel gas shadowin g. Liver: nodular contour, heterogeneous, multiple hyperechoic foci throughout suggesting tiny calcifie d granulomas Gallbladder: 1.2 cm echogenic shadowing focus at the fundus of the gallbladder. No abnormal distenti on, wall thickening, or pericholecystic fluid. Evidence for sonographic Tsai's sign: no CBD: wnl Right Kidney: wnl IMPRESSION: 1. Cirrhotic morphology of liver. Punctate calcified granulomas are noted. No sonographic evidence fo r hepatoma. 2. Suggestion of a 1.2 cm gallstone. No biliary ductal dilatation.
== END | disposition home or self-care (01) ==
LOC: RADUSWWP 06:49
PROVIDERS: ATTEND Internal Medicine Gastroenterology
DX: K74.60 Unspecified cirrhosis of liver (principal); K75.3 Granulomatous hepatitis, not elsewhere classified
CPT/HCPCS: 76705

== ENCOUNTER → 2022-11-28 | Outpatient (CLI) | payer OTHER ==
[2022-11-28 10:49] LABS: Basophils # (A) 0.06 X 10*3/uL (0.00-0.10); Basophils % (A) 0.6 %; Eosinophils # (A) 0.37 X 10*3/uL (0.04-0.35); Eosinophils % (A) 3.9 %; HCT 46.7 % (37.2-46.3); HGB 14.4 g/dL (12.0-15.0); Immature Grans, Automated 0.3 %; Lymphocytes # (A) 1.72 X 10*3/uL (0.90-5.00); Lymphocytes % (A) 18.1 %; MCH 29.6 pg (27.0-32.0); MCHC 30.8 g/dL (32.0-37.0); MCV 95.9 fL (80.0-97.0); Mean Platelet Volume 12.5 fL (9.5-12.2); Monocytes # (A) 0.63 X 10*3/uL (0.20-1.00); Monocytes % (A) 6.6 %; NRBC Per 100 WBC 0 /100 WBCS (0.0-0.0); Neutrophils # (A) 6.69 X 10*3/uL (1.80-7.70); Neutrophils % (A) 70.5 %; Platelet Count 220 X 10*3/uL (140-440); RBC 4.87 X 10*6/uL (4.10-5.20); RDW 13.6 % (11.5-14.5)
[2022-11-28 11:07] LABS: African American GFR (CKD) 83.3 (60.0-200.0); Albumin 3.7 g/dL (3.8-4.9); Albumin/Globulin Ratio 1.38 (1.60-3.17); Anion Gap 8.3 mmol/L (10.00-18.00); BUN/Creat Ratio 18.29 Ratio (12.00-20.00); Calcium 9.5 mg/dL (8.7-10.3); Carbon Dioxide 30.5 mmol/L (20.0-27.5); Globulin 2.7 g/dL (1.6-3.3); Non-African American GFR(CKD) 71.9 (60.0-200.0); Potassium 4.5 mmol/L (3.5-5.5); Total Bilirubin 0.6 mg/dL (0.30-1.20); Total Protein 6.4 g/dL (6.2-8.2)
== END | disposition home or self-care (01) ==
LOC: LABWHC1 06:42
PROVIDERS: ATTEND Nurse Practitioner Family
DX: K74.60 Unspecified cirrhosis of liver (principal)
CPT/HCPCS: 36415; 80053; 82105; 85025

== ENCOUNTER → 2023-01-06 | Outpatient (CLI) | payer OTHER ==
[2023-01-06 11:13] LABS: BUN/Creat Ratio 13.55 Ratio (12.00-20.00); Blood Urea Nitrogen 14.9 mg/dL (9.0-27.0); Calcium 9.4 mg/dL (8.7-10.3); Chloride 105 mmol/L (96-109); Glucose 127 mg/dL (70-110); Potassium 4.9 mmol/L (3.5-5.5); Sodium 143 mmol/L (135-145)
== END | disposition home or self-care (01) ==
LOC: LABWHC1 07:40
PROVIDERS: ATTEND Internal Medicine
DX: I50.22 Chronic systolic (congestive) heart failure (principal)
CPT/HCPCS: 36415; 80048

== ENCOUNTER → 2023-01-06 | Outpatient (CLI) | payer OTHER ==
--- NOTE | 2023-01-06 13:22 | XR ---
EXAMINATION TYPE: XR knee complete bilateral DATE OF EXAM: 01/06/2023 11:07 AM INDICATION: Patient age:Female; 62 years old; Reason for study: M25.569 Knee pain; COMPARISON: None. TECHNIQUE: The bilateral knee(s) was examined in Frontal, lateral and oblique projections. FINDINGS: No evidence of any acute osseous pathology, soft tissue swelling, or joint effusion is no tamia. No significant degeneration changes IMPRESSION: 1. No acute osseous pathology. 2. No significant osteoarthritic changes. Consider further evaluation with MRI as clinically warrante d.
== END | disposition home or self-care (01) ==
LOC: RADXRMAIN 10:18
PROVIDERS: ATTEND Internal Medicine
DX: M25.561 Pain in right knee (principal); M25.562 Pain in left knee

== ENCOUNTER → 2023-01-07 | Outpatient (CLI) | payer OTHER ==
--- NOTE | 2023-01-07 16:39 | US ---
EXAMINATION TYPE: US venous doppler duplex LE DATE OF EXAM: 01/07/2023 4:27 PM COMPARISON: NONE CLINICAL INDICATION: Female, 62 years old with history of M79.669 PAIN IN UNSPECIFIED LOWER LEG; Pain in left calf x 3 weeks. On blood thinners. No hx of DVT SIDE PERFORMED: Bilateral TECHNIQUE: The lower extremity deep venous system is examined utilizing real time linear array sonog claudia with graded compression, doppler sonography and color-flow sonography. VESSELS IMAGED: Common Femoral Vein Deep Femoral Vein Greater Saphenous Vein * Femoral Vein Popliteal Vein Small Saphenous Vein * Proximal Calf Veins (* superficial vessels) Grayscale, color doppler, spectral doppler imaging performed of the deep veins of the lower extremiti es. There is normal flow, compressibility, vascular waveforms. Right Leg: No evidence for DVT Left Leg: No evidence for DVT. There appears to be a debris filled fluid collection in medial knee d own to mid calf. This is the area the patient is having swelling. The fluid collection does not appea r to join up to any vessels. No internal color flow. No hyperemia identified. IMPRESSION: 1. No ultrasound evidence for deep venous thrombosis of the bilateral lower extremities. 2. Moderate size fluid collection with debris in the medial left knee soft tissues at patient's regio n of swelling. No internal color flow. Etiologies include seroma versus hematoma versus less likely a bscess.
== END | disposition home or self-care (01) ==
LOC: RADUSWWP 15:37
PROVIDERS: ATTEND Internal Medicine
DX: M79.661 Pain in right lower leg (principal); M79.89 Other specified soft tissue disorders; M79.662 Pain in left lower leg
CPT/HCPCS: 93970

== ENCOUNTER → 2023-02-04 | Outpatient (CLI) | payer OTHER ==
--- NOTE | 2023-02-04 12:40 | CTL ---
EXAMINATION TYPE: CT Low Dose Lung DATE OF EXAM ORDERED: 02/04/2023 HISTORY: 62-year-old female F17.210 NICOTINE DEPENDENCE, CIGARETTES, UNCOMPLICATED. Lung cancer [place]. Current smoker with 20 pack-year history. CT DLP: 92.[address] CTDI: 2.6 mGy Automated exposure control for dose reduction was used. SCREENING VISIT: Follow-up after 4 years COMPARISON: 09/27/2021 TECHNIQUE: Low dose computed tomography scan was performed through the chest with coronal and sagitta l reconstructions. CT DIAGNOSTIC QUALITY: Satisfactory FINDINGS: Heart and lungs are normal in size without pericardial effusion. LAD and RCA coronary artery calcific ations are present. Mild atherosclerotic arch calcifications. Conventional arterial vessel branch. No thoracic lymphadenopathy by CT size criteria. Bandlike atelectasis or scarring has developed now at the left base. More patchy opacity at the infer ior lingula is increased from prior. Mild diffuse bronchial wall thickening. Mild emphysematous landry e. No consolidation or pleural effusion. A 6 mm posterior right midlung pulmonary nodule, axial image 134 measuring unchanged. Additional scat tered tiny micronodules are not as well demonstrated. No definite new suspicious pulmonary nodules. Redemonstrated asymmetric elevation left hemidiaphragm. Visualized upper abdomen shows no gross abnor mality. Bones: Anterior endplate spondylosis/DISH lower thoracic spine. IMPRESSION: 1. BI-RADS 2, benign. A stable 6 mm posterior right midlung pulmonary nodule. Other previous micronod ules are not as well defined. 2. COPD with mild emphysema. 3. Continued asymmetric elevation left hemidiaphragm. If concern for hemidiaphragmatic paralysis, a f luoroscopic sniff test could be performed. 4. Interval development of bandlike scarring or atelectasis at the left base. Additional increasing p atchy inferior lingular opacity likely atelectasis. Correlate with symptoms to exclude pneumonia. CT LUNG RAD AND CT CHEST RECOMMENDATION: Lung-Rad 2 Benign Appearance or Behavior: Continue annual sc reening with LDCT in 12 months. S Modifier (other clinically significant findings): S, correlate to exclude inferior lingular pneumon ia versus atelectasis.
== END | disposition home or self-care (01) ==
LOC: RADCTMAIN 09:03
PROVIDERS: ATTEND Internal Medicine
DX: Z12.2 Encounter for screening for malignant neoplasm of respiratory organs (principal); J43.9 Emphysema, unspecified; R91.1 Solitary pulmonary nodule; F17.210 Nicotine dependence, cigarettes, uncomplicated
CPT/HCPCS: 71271

== ENCOUNTER → 2023-02-10 | Outpatient (CLI) | payer OTHER ==
--- NOTE | 2023-02-15 21:47 | MR ---
EXAMINATION TYPE: MR knee LT wo con DATE OF EXAM: 02/10/2023 COMPARISON: Radiographs 02/03/2023 and prior Doppler study 12/30/2022 HISTORY: 62-year-old female Left knee pain and swelling into left leg, Recent Doppler TECHNIQUE: Multiplanar, multisequence imaging of the left knee is performed without IV contrast. FINDINGS: There is severe generalized subcutaneous soft tissue swelling present. The ACL, PCL, MCL, and LCL complex are intact. There is moderate thinning of articular cartilage along the medial patellar facet and moderate superf icial cartilage irregularity along the trochlear facets. Bicompartmental articular cartilage volume is otherwise maintained. Medial meniscus is intact. There is is an oblique tear involving the body of the lateral meniscus extending to both the anterior and posterior junctions with the meniscal horns. There is a small leaking Mari's cyst measuring 2.7 x 2.2 cm. There is a moderate knee joint effusion. Edema within the medial head gastrocnemius. Confluent edema along the superficial fascia of the calf and anterior upper leg. Extensor mechanism is intact. Femoropopliteal artery anatomy and moderate generalized muscle atrophy. No suspicious bone marrow rep lacement. IMPRESSION: 1. There is a moderate knee joint effusion, small 2.7 x 2.2 cm leaking Mari's cyst, and severe gener alized subcutaneous soft tissue swelling. The previous focal fluid collection along the medial aspect of the calf on the ultrasound of 01/07/2023 is no longer apparent. Consider interval rupture of a Rosaura er's cyst or rupture of a ganglion cyst. Some of the soft tissue edema may also be due to extravasati on of joint effusion. Consider ultrasound follow-up to reassess the previously seen fluid collection. 2. Mild patellofemoral compartmental OA. 3. Oblique tear involving the body of the lateral meniscus extending to both the anterior and posteri or junctions with the meniscal horns. 4. Increased signal involving the medial head gastrocnemius. This could be edema reactive to altered biomechanics or could represent a muscle strain.
== END | disposition home or self-care (01) ==
LOC: RADMRIMAIN 19:08
PROVIDERS: ATTEND Orthopaedic Surgery
DX: M17.12 Unilateral primary osteoarthritis, left knee (principal); M25.462 Effusion, left knee; M71.22 Synovial cyst of popliteal space [Baker], left knee; R60.0 Localized edema; M23.252 Derangement of posterior horn of lateral meniscus due to old tear or injury, left knee

== ENCOUNTER → 2023-02-11 | Outpatient (CLI) | payer OTHER ==
[2023-02-11 07:57] VITALS: BP 118/80; PULSE 82; RESP 18; TEMP 98.6
--- NOTE | 2023-02-11 08:28 | P.HPOB ---
History of Present Illness H&P Date: 02/11/23 Chief Complaint: The patient is here for her routine gynecologic exam and ma mmogram. This is a 62-year-old with an LMP of 2009. A patient is without gynecologic complaints. Review of Systems The patient has lost 10 pounds over the last year. She denies respiratory, cardiac, or G.I. problems. Past Medical History Past Medical History: Atrial Fibrillation, Heart Failure, COPD, GERD/Reflux, Hyperlipidemia, Hypertension, Liver Disease, Sleep Apnea/CPAP/BIPAP Additional Past Medical History / Comment(s): Morbid obesity, obstructive sleep apnea, cardiomyopathy nonischemic with ejection fraction of less than 20%, chronic atrial fibrillation, chronic lower extremity edema, fatty liver/cirrhosis. Pre-diabetes. Past SHOVE UP history: Chlamydia treated many years ago. History of Any Multi-Drug Resistant Organisms: None Reported Past Surgical History: Tubal Ligation Additional Past Surgical History / Comment(s): cardioversion for afib 01/26/17. Colonoscopy 2017(next after 10y) Past Anesthesia/Blood Transfusion Reactions: No Reported Reaction Past Psychological History: Anxiety, Depression Additional Psychological History / Comment(s): . Smoking Status: Current every day smoker (About 5-6 cigarettes per day.) Past Alcohol Use History: None Reported Additional Past Alcohol Use History / Comment(s): Pt started smoking in 1974 and was 1 ppd smoker. Has reduced amount of smoking in recent years. Past Drug Use History: Marijuana Additional Drug Use History / Comment(s): History of marijuana use but denies use for more than 20 years. - Past Family History Mother Family Medical History: Deep Vein Thrombosis (DVT) Additional Family Medical History / Comment(s): Mother had cirrhosis. She at the age of 71yrs. Maternal grandmother had OH. Father Family Medical History: Cancer Additional Family Medical History / Comment(s): Father had mesothelioma. Medications and Allergies Home Medications Medication Instructions Recorded Confirmed Type Albuterol Inhaler [Ventolin Hfa 2 puff INHALATION RT-Q4H PRN 11/10/16 02/11/23 History Inhaler] Cholecalciferol [Vitamin D3 (25 1,000 unit PO DAILY 11/10/16 02/11/23 History Mcg = 1000 Iu)] DULoxetine HCL [Cymbalta] 30 mg PO HS 11/10/16 02/11/23 History Vitamin B Complex 1 cap PO DAILY 11/10/16 02/11/23 History Apixaban [Eliquis] 5 mg PO BID tab 11/16/16 02/11/23 Rx Furosemide [Lasix] 40 mg PO DAILY tab 11/16/16 02/11/23 Rx Metoprolol Tartrate [Lopressor] 50 mg PO BID tab 11/16/16 02/11/23 Rx Spironolactone [Aldactone] 25 mg PO DAILY tab 11/16/16 02/11/23 Rx Amiodarone [Cordarone] 100 mg PO DAILY 12/14/19 02/11/23 History Atorvastatin [Lipitor] 20 mg PO HS 12/14/19 02/11/23 History Sacubitril/Valsartan [Entresto 49 1 each PO BID 12/14/19 02/11/23 History mg-51 mg Tablet] Umeclidinium [place] [Incruse 62.5 mcg INHALATION DAILY 12/14/19 02/11/23 History Ellipta] Solifenacin Succinate [Vesicare] 5 mg PO DAILY 11/19/21 02/11/23 History Allergies Allergy/AdvReac Type Severity Reaction Status Date / Time No Known Allergies Allergy Verified 02/11/23 07:54 Exam Vital Signs Temp Pulse Resp BP Pulse Ox 02/11/23 07:54 98.6 F 82 18 118/80 97 Intake and Output 02/10/23 02/11/23 02/11/23 22:59 06:59 14:59 Other: Weight 124.284 kg Height 5 feet 9 inches, weight 274 pounds, BMI 40.5. This is a well-developed well-nourished heavyset white female who is alert and oriented times 3 in no acute distress. HEENT: Within normal limits. NECK: Supple without mass or thyromegaly. CHEST AND LUNGS: Clear to auscultation. HEART: Regular rate and rhythm. BREASTS: Are without mass or discharge. AXILLARY EXAM: Negative for adenopathy. BACK: Negative for CVA tenderness. ABDOMEN: Soft, nontender, without palpable masses. PELVIC EXAM: Normal external genitalia with mild atrophy. Cervix and vagina appear normal with mild atrophy. There is no unusual discharge. There is no evidence of prolapse. The uterus is midposition, nongravid size and nontender. There are no palpable adnexal masses or tenderness. RECTAL EXAM: Rectovaginal exam is negative for mass or tenderness and is negative for occult blood. EXTREMITIES: Nontender. IMPRESSION: 1. 70-year-old menopausal female with normal gynecologic exam. 2. History of multiple medical problems. PLAN: 1. Pap smear was deferred since she had a negative Pap smear cotest on 11/19/2021. 2. Self breast awareness was discussed with the patient. We have also discussed symptoms associated with inflammatory breast cancer. 3. Screening mammogram will be done today. 4. Osteoporosis prevention was discussed. I have stressed the importance of adequate calcium, vitamin D and regular exercise. Recommended amounts of calcium and vitamin D were also discussed. Baseline bone density testing will be done today. 5. I have recommended that she try to decrease the number of cigarettes she smokes each day and eventually try to quit. We have discussed why this is important for many reasons. 6. She was advised to return in one year for her annual well woman exam.
--- NOTE | 2023-02-11 08:59 | MM ---
Reason for Exam: Screening (asymptomatic). Last mammogram was performed 1 year(s) and 5 month(s) ago. Patient History: Menarche at age 14. First Full-Term at age 32. Late child-bearing (after 30). Postmenopausal. Risk Values: Mayi 5 year model risk: 2.0%. NCI Lifetime model risk: 10.0%. Prior Study Comparison: 08/14/2018 Bilateral Screening Mammogram, LOCATED WITHIN [facility]. 03/08/2020 Bilateral Screening Mammogram, LOCATED [facility]IN [facility]. 09/10/2021 Bilateral Screening Mammogram, LOCATED WITHIN [facility]. Tissue Density: There are scattered fibroglandular densities. Findings: Analyzed By CAD. There is no suspicious group of microcalcifications or new suspicious mass in either breast. Stable chronic nodularity within the left breast. Overall Assessment: Benign, BI-RAD 2 Management: Screening Mammogram of both breasts in 1 year. A clinical breast exam by your physician is recommended on an annual basis and results should be correlated with mammographic findings. Note on Mayi scores and lifetime risk: 1. A Mayi score greater than 3% is considered moderate risk. If this is the case, consider specialist referral to assess eligibility for a risk reducing agent. If overall lifetime risk for the development of breast cancer is 20% or higher, the patient may qualify for future screening with alternating mammogram and breast MRI. Electronically signed and approved by: Otf Moise D.O.
--- NOTE | 2023-02-11 10:01 | BD ---
EXAMINATION TYPE: Axial Bone Density DATE OF EXAM: 02/11/2023 CLINICAL HISTORY: 62 years old Female. ICD-10 CODE: Z780 POST FLORIN WITHOUT HRT Height: 69in Weight: 271lb FRAX RISK QUESTIONS: Secondary Osteoporosis: Current Tobacco Use: yes RISK FACTORS HISTORY OF: Active: yes Postmenopausal woman: yes MEDICATIONS: Additional Medications: cholesterol med, bp med, cardiac med, vitamin d Additional History: cirrhosis EXAM MEASUREMENTS: Bone mineral densitometry was performed using the Intrallect System. Bone mineral density as measured about the Lumbar spine is: ----- L1-L4(G/cm2): 1.234 T Score Values are as follows: ----- L1: -0.5 ----- L2: 0.3 ----- L3: 1.3 ----- L4: 0.3 ----- L1-L4: 0.4 Z Score Values are as follows: ----- L1: -0.4 ----- L2: 0.4 ----- L3: 1.4 ----- L4: 0.4 ----- L1-L4: 0.5 First dexa at [facility] Bone mineral density about the R hip (g/cm2): 0.860 Bone mineral density about the L hip (g/cm2): 0.868 T Score values are as follows: -----R Neck: -1.0 -----L Neck: -0.8 -----R Total: -1.2 -----L Total: -1.1 Z Score values are as follows: -----R Neck: -0.5 -----L Neck: -0.3 -----R Total: -1.1 -----L Total: -1.0 First dexa at [facility] FRAX%s: The graph provided illustrates a 6.3% chance for a major osteoporotic fx and a 0.6% chance fo r the hips probability for fx in 10 years time. IMPRESSION: Osteopenia (T Score between -2.5 and -1). There is slightly increased risk of fracture and the patient may be considered for treatment. Re-Screen 2-5 years. NOTE: T-SCORE=SD OF THE YOUNG ADULT MEAN.
--- NOTE | 2023-02-11 15:04 | P.PN ---
Progress Note - Text Progress Note Date: 02/11/23 OUTPATIENT FOLLOW-UP NOTE TEST(S)/RESULTS: Test results from 02/11/23 include benign mammogram and bone density test showing osteopenia. METHOD OF NOTIFICATION: The patient was notified by phone on 02/11/2023. PATIENT COMMENTS: DIAGNOSIS: Benign mammogram and osteopenia. DISCUSSION: I have stressed the importance of adequate calcium, vitamin D, and regular exercise. We will plan on repeating the bone density test in 2-3 years. PLAN: She was advised to return in one year for her annual well woman exam.
== END ==
LOC: WWCWWP 07:45
PROVIDERS: ATTEND Obstetrics & Gynecology
DX: Z01.419 Encounter for gynecological examination (general) (routine) without abnormal findings (principal); I11.0 Hypertensive heart disease with heart failure; I50.9 Heart failure, unspecified; I48.91 Unspecified atrial fibrillation; G47.30 Sleep apnea, unspecified; K21.9 Gastro-esophageal reflux disease without esophagitis; E11.9 Type 2 diabetes mellitus without complications; J44.9 Chronic obstructive pulmonary disease, unspecified; E78.5 Hyperlipidemia, unspecified; F17.210 Nicotine dependence, cigarettes, uncomplicated; M85.80 Other specified disorders of bone density and structure, unspecified site; Z78.0 Asymptomatic menopausal state; Z12.31 Encounter for screening mammogram for malignant neoplasm of breast; Z86.39 Personal history of other endocrine, nutritional and metabolic disease; Z99.89 Dependence on other enabling machines and devices; Z79.51 Long term (current) use of inhaled steroids; Z79.01 Long term (current) use of anticoagulants; Z79.899 Other long term (current) drug therapy
CPT/HCPCS: 77067; 77080

== ENCOUNTER → 2023-02-25 | Outpatient (CLI) | payer OTHER ==
[2023-02-25 14:55] LABS: Basophils # (A) 0.05 X 10*3/uL (0.00-0.10); Basophils % (A) 0.6 %; Eosinophils # (A) 0.15 X 10*3/uL (0.04-0.35); Eosinophils % (A) 1.8 %; HCT 48.9 % (37.2-46.3); HGB 15.1 d/dL (12.0-15.0); Lymphocytes # (A) 1.64 X 10*3/uL (0.90-5.00); Lymphocytes % (A) 19.7 %; MCH 29.8 pg (27.0-32.0); MCHC 30.9 d/dL (32.0-37.0); MCV 96.4 FL (80.0-97.0); Mean Platelet Volume 12.1 FL (9.5-12.2); Monocytes # (A) 0.54 X 10*3/uL (0.20-1.00); Monocytes % (A) 6.5 %; NRBC Per 100 WBC 0 X 10*3/uL (0.00-0.01); Neutrophils # (A) 5.94 X 10*3/uL (1.80-7.70); Neutrophils % (A) 71.2 %; Platelet Count 220 X 10*3/uL (140-440); RBC 5.07 X 10*6/uL (4.10-5.20); RDW 15.3 % (11.5-14.5); WBC 8.34 X 10*3/uL (4.50-10.00)
[2023-02-25 16:14] LABS: Anion Gap 7.2 mmol/L (4.00-12.00); Carbon Dioxide 31.8 mmol/L (21.6-31.8); Potassium 5.5 mmol/L (3.5-5.5)
== END | disposition home or self-care (01) ==
LOC: LABPAT 09:11
PROVIDERS: ATTEND Orthopaedic Surgery
DX: Z01.812 Encounter for preprocedural laboratory examination (principal); M23.92 Unspecified internal derangement of left knee
CPT/HCPCS: 80051; 85025

== ENCOUNTER → 2023-03-04 | Day surgery (SDC) | payer OTHER ==
[2023-02-24 14:01] VITALS: BMI 40.0
--- NOTE | 2023-03-03 14:44 | HP ---
HISTORY AND PHYSICAL SCHEDULED DATE OF SURGERY: 03/04/2023. HISTORY OF PRESENT ILLNESS: Bushra Mcdermott is a 62-year-old patient, seen with progressive left knee pain. We discussed options for treatment. She elected to proceed with left knee arthroscopy. Consent was obtained. PAST MEDICAL HISTORY: Hypertension, hyperlipidemia, and atrial fibrillation. PAST SURGICAL HISTORY: Tubal ligation. DAILY MEDICATIONS: 1. Atorvastatin. 2. Furosemide. 3. Metoprolol. 4. Spironolactone. 5. Tylenol. ALLERGIES: None. SOCIAL HISTORY: She smokes cigarettes. PHYSICAL EVALUATION OF THE LEFT KNEE: Range of motion is 0 to 125 degrees. Tenderness along the medial joint line with positive medial Kyle's. Ligaments are stable. Hip rotation is without pain. Distal neurovascular exam is intact. IMAGING STUDIES: Radiographs of the left knee revealed mild medial compartment osteoarthritis. MRI left knee revealed a lateral meniscal tear, moderate effusion, and Mari's cyst. IMPRESSION: 1. Internal derangement of left knee with lateral meniscal tear. 2. Hypertension. 3. Hyperlipidemia. 4. Cardiovascular disease. PLAN: Left knee arthroscopy with partial lateral meniscectomy and debridement. MMODL / IJN: [id number] /
[~2023-03-04] MED LIST changes: +BUPIVACAINE (PF) 0.25% 10 ML VIAL MISCELLANE ONE; -DEXAMETHASONE SOD PHOSPHATE 10 MG/ML 1 ML VIAL IV ONE; +DEXAMETHASONE SOD PHOSPHATE 4 MG/ML 1 ML VIAL IV ONE; +HYDROmorphone 0.5 MG/0.5 ML SYRINGE IVP PRN; +LIDOCAINE 2% INJ 20 MG/ML (2 ML VIAL) ONE; +LIDOCAINE 4% LTA KIT (4 ML) TOPICAL ONE; +MIDAZOLAM 2 MG/2 ML VIAL ONE; +PHENYLEPHRINE-0.9% NACL SYG 1,000 MCG/10 ML SYRINGE ONE; +PROPOFOL 10 MG/ML 20 ML VIAL IV ONE; +SUCCINYLCHOLINE CHLORIDE 200 MG/10 ML VIAL IV ONE; +ceFAZolin 3 GM in SODIUM CHLORIDE 0.9% 100 ML IVPB PRN; +fentaNYL (PF) 50 MCG/ML 2 ML AMP ONE
[2023-03-04 08:42] LABS: Glucose,Whole Blood 119 mg/dL (70-110)
--- NOTE | 2023-03-04 09:41 | P.OP ---
Date of Procedure: 03/04/23 Preoperative Diagnosis: Internal derangement left knee Postoperative Diagnosis: 1. Tear medial and lateral meniscus left knee 2. Reactive synovitis medial, lateral and suprapatellar compartments left knee 3. Medial plica left knee Procedure(s) Performed: 1. Arthroscopic partial medial and lateral meniscectomy left knee 2. Arthroscopic partial synovectomy medial, lateral and suprapatellar compartments left knee 3. Arthroscopic resection medial plica left knee Anesthesia: NIKAA, local Surgeon: Theo Harmon Estimated Blood Loss (ml): 7 Pathology: none sent Condition: stable Disposition: PACU Indications for Procedure: 62-year-old patient seen with progressive left knee pain. After having treatment options discussed, she elected to proceed with arthroscopy. Operative Findings: See description of procedure Description of Procedure: Patient was taken to the operative suite. Patient underwent a general anesthetic by the department of anesthesia. Patient was given preoperative antibiotics. The left lower extremity was placed in a well-padded arthroscopic leg jenkins. The left leg was prepped and draped in the normal sterile orthopedic fashion. A lateral parapatellar and suprapatellar incision was made. Trochars were inserted. Arthroscopy was initiated. Suprapatellar pouch revealed diffuse thick reactive synovitis. The patellofemoral joint appeared to articulate congruently. There was grade 1 chondromalacia of the patella. The scope was guided into the medial gutter. There was a medial plica which did seem to impinge along the medial femoral condyle with range of motion. The scope was then guided into the medial compartment. A medial parapatellar incision was made. Trocar inserted followed by probe. There was a radial tear posterior horn medial meniscus. There were some grade 1 chondral malacia changes involving the medial compartment without significant tears. There was some thick reactive synovitis anteriorly. I performed a partial medial meniscectomy getting down to stable meniscal tissue. I performed a partial synovectomy decompressing the reactive synovitis. The residual meniscus was probed and was found to be stable. There was good decompression of the synoviti s. Scope and probe were then guided into the intercondylar notch. Cruciates were identified, probed and found to be stable. The scope and probe were then guided into lateral compartment. There was a radial tear mid body lateral meniscus. There was some reactive synovitis anteriorly. There were grade 1 chondromalacia involving lateral compartment. I performed a partial lateral meniscectomy getting down to stable meniscal tissue. I performed a partial synovectomy decompressing reactive synovitis. The residual meniscus was probed and was found to be stable. There was good decompression of the synovitis. The scope was in guided back into the suprapatellar compartment. I introduced a motorized shaver into the suprapatellar compartment. I debrided some piecemeal fragments of meniscus I encountered. I resected that medial plica. I performed a partial synovectomy. Shaver was removed. I noted to the knee through range of motion and noted complete resection of the medial plica with no residual impingement. There was good decompression of the synovitis. I took one more look around the entire knee, no residual debris. Instruments were now removed from the joint. The joint was infiltrated with .25% Marcaine. Steri-Strips were applied to the portal sites. Sterile dressings were applied. The patient was placed into a SABA hose. No tourniquet was utilized. The patient was awakened, transferred to a bed and taken to recovery stable satisfactory condition.
[2023-03-04 09:55] VITALS: RESP 16; TEMP 97
[2023-03-04 11:07] VITALS: BP 115/83; PULSE 88
== END | disposition home or self-care (01) ==
LOC: OR 08:03
PROVIDERS: ATTEND Orthopaedic Surgery
DX: S83.242A Other tear of medial meniscus, current injury, left knee, initial encounter (principal); S83.282A Other tear of lateral meniscus, current injury, left knee, initial encounter; M65.862 Other synovitis and tenosynovitis, left lower leg; M67.52 Plica syndrome, left knee; I10 Essential (primary) hypertension; E78.5 Hyperlipidemia, unspecified; I48.91 Unspecified atrial fibrillation; F17.210 Nicotine dependence, cigarettes, uncomplicated; X58.XXXA Exposure to other specified factors, initial encounter; Z98.51 Tubal ligation status; Z79.899 Other long term (current) drug therapy
CPT/HCPCS: 29880; J2250; J0330; J1100; J0690; J2405; J3010; J2704; J2001; J2371; J0665

== ENCOUNTER → 2023-05-20 | Outpatient (CLI) | payer OTHER ==
--- NOTE | 2023-05-20 10:40 | P.PN ---
Subjective DATE: 05/20/2023 FOLLOW UP VISIT. Patient with obstructive sleep apnea hypopnea syndrome return to sleep center for follow-up visit. Information from previous visit have been reviewed. Patient is using PAP equipment every night for the whole night, getting PAP supplies in time. The patient does not have significant problems with the mask, PAP unit and humidification. [place] sleepiness scale is 9, which is in normal range. I checked information from PAP unit. PAP unit pressure 13 cm H2O. Usage is 90 % for more then 4 hours, average 7.6 hours per night. Leak is increased to 41 l/m, stent to change the nasal pillows. There is a possibility the patient opened her mouth. Apnea Hypopnea Index is 1.4, which is normal. MEDICATIONS:1. Lasix 40 mg once a day 2. Spironolactone 25 mg once a day 3. Cymbalta 30 mg once a day 4. Amiodarone 100 mg once a day 5. Metoprolol 25 mg once a day 6. Eliquis 5 mg twice a day 7. Atorvastatin 80 mg once a day 8. Entresto During physical exam: GENERAL: A pleasant patient without any distress. VITAL SIGNS: BP 118/88, HR 87, RR 16 , weight 279.4, temperature 98.2, oxygen saturation at room air 94 % . HEENT: PERRLA, EOMI.low position of soft palate, Mallapati 3 . NECK: Supple. No JVD. LUNGS: Clear to percussion and to auscultation. Good air exchange. No wheezing or rhonchi. HEART: S1, S2 regular. ABDOMEN: Soft and nontender.[] EXTREMITIES: No clubbing or cyanosis. ERP MANAGER: Awake, alert, and oriented x3. No focal deficit. Impressions: 1. Obstructive sleep apnea-hypopnea syndrome. Patient demonstrated good compliance with treatment, benefiting from treatment. 2. Obesity, patient lost 5 pounds since previous visit. 3. History of CHF with low ejection fraction. 4. History of atrial fibrillation. 5. Hypertension. 6. Hyperlipidemia. 7. Acid reflux. 8. History of anxiety. Plan: 1. Continue using PAP equipment every night for the whole night. 2. To change air filter at least 1-2 times per month. 3. PAP unit should stay lower then position of the head. 4. Advised patient to remove all remaining water from humidifier canister daily and make it dry after each usage. Refill canister with fresh distilled water before each usage. 5. Sleep hygiene with regular time in bed for at least 8 hours. 6. Precautions related to driving. No driving if feel any sleepiness. 7. I will maintain prescription for PAP supplies including mask, tube, filters. 8. Watching and continue losing weight. 9. Follow up visit in 6 months or earlier if patient has any problems. Thank you very much for allowing me to participate in the management of your patient. Diego David MD, PhD, FAASM. Diplomat of [place] [employer], Sleep Medicine Board by [place] [employer] Environmental Services Director of [facility] [place]
== END ==
LOC: 3 N SLEEP 09:54
PROVIDERS: ATTEND Internal Medicine
DX: G47.33 Obstructive sleep apnea (adult) (pediatric) (principal); E66.9 Obesity, unspecified; I48.91 Unspecified atrial fibrillation; I11.0 Hypertensive heart disease with heart failure; I50.9 Heart failure, unspecified; F17.200 Nicotine dependence, unspecified, uncomplicated; E78.5 Hyperlipidemia, unspecified; K21.9 Gastro-esophageal reflux disease without esophagitis; F41.9 Anxiety disorder, unspecified; Z79.01 Long term (current) use of anticoagulants; Z79.899 Other long term (current) drug therapy; Z99.89 Dependence on other enabling machines and devices
CPT/HCPCS: 99212

== ENCOUNTER → 2023-05-20 | Outpatient (CLI) | payer OTHER ==
--- NOTE | 2023-05-20 11:34 | US ---
EXAMINATION TYPE: US liver DATE OF EXAM: 05/20/2023 COMPARISON: US 11/17/2022 CLINICAL INDICATION: Female, 62 years old with history of K74.60 UNSPECIFIED CIRRHOSIS OF LIVER; Cirr hosis. TECHNIQUE: Multiple sonographic images of the right upper quadrant are obtained. 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 Pancreas: Not well seen. Liver: Measures upper limits. Appears very coarse and heterogeneous in echotexture. A tiny benign cys t in the left lobe measuring 0.8 x 0.9 x 0.5 cm. Scattered echogenic foci measuring up to 7 mm could represent prominent vascular reflectors, echogenic periportal fat, or calcification such as in the se tting of prior granulomatous disease. Gallbladder: Measures 9.5 cm in length. A few small echogenic foci with posterior shadowing, largest measures 0.9 x 0.9 x 0.4 cm. Evidence for sonographic Tsai's sign: No CBD: Portions seen appear wnl Right Kidney: No hydronephrosis or masses seen IMPRESSION: 1. Borderline hepatomegaly at 17.0 cm. There is very heterogeneous liver parenchyma and echogenic are as, possibly echogenic periportal fat such as in the setting of hepatitis. Findings suggest underlyin g nonspecific hepatocellular disease. 2. A few small gallstones, largest measuring 9 mm.
[2023-05-20 17:13] LABS: Glucose 117 mg/dL (70-110); HCT 50.4 % (37.2-46.3); HGB 15.8 g/dL (12.0-15.0); MCH 29.9 pg (27.0-32.0); MCHC 31.3 g/dL (32.0-37.0); MCV 95.5 FL (80.0-97.0); Mean Platelet Volume 11.4 FL (9.5-12.2); NRBC Per 100 WBC 0 X 10*3/uL (0.00-0.01); Platelet Count 244 X 10*3/uL (140-440); RBC 5.28 X 10*6/uL (4.10-5.20); RDW 13.8 % (11.5-14.5); WBC 9.42 X 10*3/uL (4.50-10.00)
[2023-05-20 17:14] LABS: ALT 52 U/L (8-44); AST 28 U/L (13-35); Albumin/Globulin Ratio 1.33 Ratio (1.60-3.17); Alkaline Phosphatase 112 U/L (41-126); Calcium 10.2 mg/dL (8.7-10.3); Chloride 103 mmol/L (96-109); Sodium 143 mmol/L (135-145); Total Bilirubin 0.4 mg/dL (0.3-1.2)
== END | disposition home or self-care (01) ==
LOC: RADUSWWP 08:17
PROVIDERS: ATTEND Internal Medicine Gastroenterology
DX: K74.60 Unspecified cirrhosis of liver (principal); R16.0 Hepatomegaly, not elsewhere classified; K76.89 Other specified diseases of liver; K80.20 Calculus of gallbladder without cholecystitis without obstruction
CPT/HCPCS: 76705; 80053; 82105; 85027

== ENCOUNTER → 2023-08-20 | Outpatient (CLI) | payer OTHER ==
--- NOTE | 2023-08-20 09:05 | XR ---
EXAMINATION TYPE: XR chest 2V DATE OF EXAM: 08/20/2023 8:48 AM CLINICAL INDICATION:Female, 63 years old with history of I48.91; H COMPARISON: Chest radiographs from 02/05/2017 TECHNIQUE: XR chest 2V Frontal and lateral views of the chest. FINDINGS: Lungs/Pleura: There is flattening of the diaphragm with increased lucency of the lungs. No evidence o f pneumothorax, pleural effusion or focal consolidation. Pulmonary vascularity: Unremarkable. Heart/mediastinum: Cardiomediastinal silhouette is unremarkable. Musculoskeletal: No acute osseous pathology. Other findings: None IMPRESSION: 1. No acute cardiopulmonary disease process. 2. COPD changes.
[2023-08-20 17:08] LABS: T4, Free (Free Thyroxine) 1.8 ng/dL (0.80-1.80)
== END | disposition home or self-care (01) ==
LOC: LABWHC1 08:21
PROVIDERS: ATTEND Internal Medicine Interventional Cardiology
DX: I48.91 Unspecified atrial fibrillation (principal); J44.9 Chronic obstructive pulmonary disease, unspecified
CPT/HCPCS: 36415; 71046; 84439; 84443; 84450; 84460

== ENCOUNTER → 2023-11-23 | Outpatient (CLI) | payer OTHER ==
--- NOTE | 2023-11-23 09:30 | US ---
EXAMINATION TYPE: US liver DATE OF EXAM: 11/23/2023 COMPARISON: US 05/20/2023 CLINICAL INDICATION: Female, 63 years old with history of K74.60 UNSPECIFIED CIRRHOSIS OF LIVER; Cirr hosis per order. Hx of gallstones. TECHNIQUE: Multiple sonographic images of the right upper quadrant are obtained. 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 Pancreas: Not well visualized. Liver: Measures upper limits. Very heterogenous and coarse, there appear to be calcifications throu ghout the liver. Very limited. Gallbladder: *Hyperechoic material with posterior shadowing seen within: 2.5 x 1.8 x 0.6 cm. Evidence for sonographic Tsai's sign: No CBD: Appears wnl Right Kidney: No hydronephrosis or masses seen IMPRESSION: Hepatocellular disease commonly related to hepatic steatosis. No suspicious observations.
[2023-11-23 14:33] LABS: Basophils # (A) 0.08 X 10*3/uL (0.00-0.10); Basophils % (A) 0.7 %; Eosinophils # (A) 0.76 X 10*3/uL (0.04-0.35); Eosinophils % (A) 6.8 %; HCT 48.9 % (37.2-46.3); HGB 15.1 g/dL (12.0-15.0); Lymphocytes # (A) 2.11 X 10*3/uL (0.90-5.00); Lymphocytes % (A) 18.9 %; MCH 30.9 pg (27.0-32.0); MCHC 30.9 g/dL (32.0-37.0); Mean Platelet Volume 11.8 FL (9.5-12.2); Monocytes # (A) 0.58 X 10*3/uL (0.20-1.00); Monocytes % (A) 5.2 %; NRBC Per 100 WBC 0 X 10*3/uL (0.00-0.01); Neutrophils # (A) 7.56 X 10*3/uL (1.80-7.70); Platelet Count 282 X 10*3/uL (140-440); RBC 4.89 X 10*6/uL (4.10-5.20); RDW 13.6 % (11.5-14.5); WBC 11.14 X 10*3/uL (4.50-10.00)
[2023-11-23 14:52] LABS: ALT 17 U/L (8-44); AST 17 U/L (13-35); Albumin 4.1 g/dL (3.8-4.9); Albumin/Globulin Ratio 1.52 Ratio (1.60-3.17); Alkaline Phosphatase 92 U/L (41-126); BUN/Creat Ratio 14.58 Ratio (12.00-20.00); Blood Urea Nitrogen 17.5 mg/dL (9.0-27.0); Calcium 9.9 mg/dL (8.7-10.3); Carbon Dioxide 27.7 mmol/L (21.6-31.8); Chloride 103 mmol/L (96-109); Globulin 2.7 g/dL (1.6-3.3); Glucose 113 mg/dL (70-110); Potassium 4.9 mmol/L (3.5-5.5); Sodium 142 mmol/L (135-145); Total Bilirubin 0.5 mg/dL (0.3-1.2); Total Protein 6.8 g/dL (6.2-8.2)
== END | disposition home or self-care (01) ==
LOC: RADUSWWP 08:23
PROVIDERS: ATTEND Internal Medicine Gastroenterology
DX: K74.60 Unspecified cirrhosis of liver (principal); K76.0 Fatty (change of) liver, not elsewhere classified; K76.89 Other specified diseases of liver
CPT/HCPCS: 76705; 80053; 82105; 85025

== ENCOUNTER → 2023-12-31 | Outpatient (CLI) | payer OTHER ==
[2023-12-31 10:44] LABS: Basophils # (A) 0.05 X 10*3/uL (0.00-0.10); Basophils % (A) 0.6 %; Eosinophils # (A) 0.28 X 10*3/uL (0.04-0.35); Eosinophils % (A) 3.3 %; HCT 45.5 % (37.2-46.3); HGB 14.3 g/dL (12.0-15.0); Lymphocytes # (A) 1.67 X 10*3/uL (0.90-5.00); Lymphocytes % (A) 19.4 %; MCH 31.4 pg (27.0-32.0); MCHC 31.4 g/dL (32.0-37.0); Mean Platelet Volume 12.2 FL (9.5-12.2); Monocytes # (A) 0.61 X 10*3/uL (0.20-1.00); Monocytes % (A) 7.1 %; NRBC Per 100 WBC 0 X 10*3/uL (0.00-0.01); Neutrophils # (A) 5.95 X 10*3/uL (1.80-7.70); Neutrophils % (A) 69.1 %; Platelet Count 206 X 10*3/uL (140-440); RBC 4.55 X 10*6/uL (4.10-5.20); RDW 13.6 % (11.5-14.5)
[2023-12-31 11:02] LABS: ALT 29 U/L (8-44); AST 23 U/L (13-35); Albumin/Globulin Ratio 1.54 Ratio (1.60-3.17); Alkaline Phosphatase 87 U/L (41-126); BUN/Creat Ratio 18.23 Ratio (12.00-20.00); Blood Urea Nitrogen 23.7 mg/dL (9.0-27.0); Calcium 9.6 mg/dL (8.7-10.3); Carbon Dioxide 28.7 mmol/L (21.6-31.8); Chloride 106 mmol/L (96-109); Globulin 2.6 g/dL (1.6-3.3); Glucose 110 mg/dL (70-110); LDL Cholesterol,Calculated 116.6 mg/dL (0.0-131.0); Potassium 5.2 mmol/L (3.5-5.5); Sodium 145 mmol/L (135-145); Total Bilirubin 0.5 mg/dL (0.3-1.2); Total Protein 6.6 g/dL (6.2-8.2)
[2023-12-31 11:17] LABS: Magnesium 1.9 mg/dL (1.5-2.4)
== END | disposition home or self-care (01) ==
LOC: LABWHC1 07:51
PROVIDERS: ATTEND Internal Medicine
DX: I10 Essential (primary) hypertension (principal); E88.810 Metabolic syndrome; M85.80 Other specified disorders of bone density and structure, unspecified site
CPT/HCPCS: 36415; 80053; 80061; 82306; 83036; 83735; 84443; 85025

== ENCOUNTER 2024-01-22 05:52 | Day surgery (SDC) | payer OTHER ==
[2024-01-21 08:43] VITALS: BMI 42.3
[~2024-01-22 05:52] MED LIST changes: -BUPIVACAINE (PF) 0.25% 10 ML VIAL MISCELLANE ONE; -DEXAMETHASONE SOD PHOSPHATE 4 MG/ML 1 ML VIAL IV ONE; -HYDROmorphone 0.5 MG/0.5 ML SYRINGE IVP PRN; -LACTATED RINGERS 1,000 ML IV SCH; -LIDOCAINE 2% INJ 20 MG/ML (2 ML VIAL) ONE; -LIDOCAINE 4% LTA KIT (4 ML) TOPICAL ONE; -MIDAZOLAM 2 MG/2 ML VIAL ONE; -ONDANSETRON 4 MG/2 ML VIAL IVP ONE; -PHENYLEPHRINE-0.9% NACL SYG 1,000 MCG/10 ML SYRINGE ONE; -PROPOFOL 10 MG/ML 20 ML VIAL IV ONE; +SODIUM CHLORIDE 0.9% 1,000 ML IV SCH; -SUCCINYLCHOLINE CHLORIDE 200 MG/10 ML VIAL IV ONE; -ceFAZolin 3 GM in SODIUM CHLORIDE 0.9% 100 ML IVPB PRN; -fentaNYL (PF) 50 MCG/ML 2 ML AMP ONE
[2024-01-22] MEDS: IV FLUID CONTINUATION 500 ML IV ONE (06:51)
[2024-01-22] MEDS: SODIUM CHLORIDE 0.9% 500 ML DEHP FREE BAG IV STA (06:52)
[2024-01-22] MEDS ORDERED: PHENYLEPHRINE 10 MG/ML VIAL ONE (07:30)
[2024-01-22] MEDS ORDERED: ePHEDrine 50 MG/ML 1 ML VIAL ONE (07:30)
[2024-01-22] MEDS ORDERED: PROPOFOL 10 MG/ML 20 ML VIAL IV ONE (07:30)
[2024-01-22 07:35] VITALS: TEMP 97
--- NOTE | 2024-01-22 07:45 | P.PCN ---
Date of Procedure: 01/22/24 Operative Findings: Cardioversion Report Performing physician Jonatan Talamantes M.D. Procedure performed Successful cardioversion of atrial fibrillation to normal sinus mechanism using 200 J and a third attempt Indication Symptomatic atrial fibrillation Complication None Level of sedation The procedure was performed under deep sedation using propofol with SPECIAL OFFICER in the room Procedure description After obtaining an informed consent the patient was brought to the recovery room. Sedation was introduced using propofol with SPECIAL OFFICER in the room. Subsequently the patient cardioverted from atrial fibrillation to normal sinus mechanism using 200 J and first attempt Postprocedure management Continue the current medical regimen Continue oral anticoagulation Follow-up with the patient
[2024-01-22] MEDS: LACTATED RINGERS 1,000 ML IV ONE (07:57)
[2024-01-22 09:14] VITALS: PULSE 52; RESP 16
[2024-01-22 09:51] VITALS: BP 100/60
== END 2024-01-22 09:56 | disposition home or self-care (01) ==
LOC: OR 05:52
PROVIDERS: ATTEND Internal Medicine Interventional Cardiology
DX: I48.0 Paroxysmal atrial fibrillation (principal); I42.8 Other cardiomyopathies; I13.0 Hypertensive heart and chronic kidney disease with heart failure and stage 1 through stage 4 chronic kidney disease, or unspecified chronic kidney disease; N18.9 Chronic kidney disease, unspecified; I50.23 Acute on chronic systolic (congestive) heart failure; E78.00 Pure hypercholesterolemia, unspecified; G47.33 Obstructive sleep apnea (adult) (pediatric); E66.01 Morbid (severe) obesity due to excess calories; Z68.41 Body mass index [BMI] 40.0-44.9, adult; K74.60 Unspecified cirrhosis of liver; F41.8 Other specified anxiety disorders; K76.0 Fatty (change of) liver, not elsewhere classified; F17.210 Nicotine dependence, cigarettes, uncomplicated; Z79.899 Other long term (current) drug therapy; Z79.01 Long term (current) use of anticoagulants; Z79.85 Long-term (current) use of injectable non-insulin antidiabetic drugs
CPT/HCPCS: 92960; J2704; J2371

== ENCOUNTER → 2024-02-08 | Outpatient (CLI) | payer OTHER ==
--- NOTE | 2024-02-08 12:32 | CTL ---
EXAMINATION TYPE: CT Low Dose Lung DATE OF EXAM ORDERED: 02/08/2024 HISTORY: 63-year-old female F17.210, current smoker with 45 pack-year history. Lung cancer screening CT DLP: 96.[address] CTDI: 2.4 mGy Automated exposure control for dose reduction was used. SCREENING VISIT: Annual follow-up COMPARISON: 02/04/2023 TECHNIQUE: Low dose computed tomography scan was performed through the chest at 1 mm thick sections a nd reconstructed images in multiple planes at 1 mm and [address] DIAGNOSTIC QUALITY: Satisfactory FINDINGS: The heart is borderline in size without pericardial effusion. Extensive LAD and RCA coronary calcific ations are present. Borderline ectasia ascending aorta 3.5 cm with mild atherosclerotic arch calcifications and conventio nal arch vessel branching anatomy. No thoracic lymphadenopathy by CT size criteria. Mild emphysematous change. Mild diffuse bronchial wall thickening. Some patchy subpleural areas of pl eural-parenchymal scarring left mid and lower lung. A few scattered 6 mm smaller bilateral pulmonary nodules remain unchanged. No new suspicious pulmonar y nodule is seen. Visualized upper abdomen shows some calcification and/or postsurgical change along the right hepatic margin. Subtle contour nodularity of the liver also noted. Limited by large patient body habitus. Bones: Moderate degenerative disc disease and anterior endplate spondylosis mid to lower thoracic spi ne. IMPRESSION: 1. Lung RADS 2, benign. Scattered 6 mm and smaller pulmonary nodules are stable. 2. COPD with mild emphysema. Scattered pleural parenchymal scarring within the mid and lower left cindy g. 3. Prominent LAD and RCA coronary artery calcifications. 4. Cirrhotic morphology of the liver. Correlate for any known diagnosis. CT LUNG RAD AND CT CHEST RECOMMENDATION: Lung-Rad 2 Benign Appearance or Behavior: Continue annual sc reening with LDCT in 12 months. S Modifier (other clinically significant findings): None
== END | disposition home or self-care (01) ==
LOC: RADCTMAIN 10:29
PROVIDERS: ATTEND Internal Medicine Critical Care Medicine
DX: Z12.2 Encounter for screening for malignant neoplasm of respiratory organs (principal); F17.210 Nicotine dependence, cigarettes, uncomplicated; J43.9 Emphysema, unspecified; I25.10 Atherosclerotic heart disease of native coronary artery without angina pectoris; J44.9 Chronic obstructive pulmonary disease, unspecified; R91.8 Other nonspecific abnormal finding of lung field; J98.4 Other disorders of lung
CPT/HCPCS: 71271

== ENCOUNTER → 2024-02-12 | Outpatient (CLI) | payer OTHER ==
--- NOTE | 2024-02-12 12:09 | US ---
EXAMINATION TYPE: US kidneys/renal and bladder DATE OF EXAM: 02/12/2024 COMPARISON: Liver ultrasound 11/23/2023, 05/20/2023, CT chest and pelvis 09/08/2019. CLINICAL INDICATION: Female, 63 years old with history of N28.9 Renal insufficiency; abn labs EXAM MEASUREMENTS: Right Kidney: 10.1x4.3x5.3 cm Left Kidney: 10.8x5.4x5.6 cm Right Kidney: No hydronephrosis or masses seen Left Kidney: No hydronephrosis or masses seen Bladder: not visualized Bilateral Jets seen: No There is no evidence for hydronephrosis at this point in time. Cortical medullary differentiation is maintained bilaterally. No nephrolithiasis is seen. No masses are identified. Nonvisualization of the urinary bladder. exam limited by bowel gas and body habitus IMPRESSION: 1. No hydronephrosis or nephrolithiasis. 2. Limited examination due to overlying bowel gas and patient's body habitus. Nonvisualization of the urinary bladder.
== END | disposition home or self-care (01) ==
LOC: RADUSWWP 08:47
PROVIDERS: ATTEND Internal Medicine
DX: N28.9 Disorder of kidney and ureter, unspecified (principal); R79.9 Abnormal finding of blood chemistry, unspecified
CPT/HCPCS: 76770

== ENCOUNTER → 2024-03-21 | Outpatient (CLI) | payer OTHER ==
[2024-03-21 15:46] LABS: BUN/Creat Ratio 17.25 Ratio (12.00-20.00); Blood Urea Nitrogen 20.7 mg/dL (9.0-27.0); Calcium 8.9 mg/dL (8.7-10.3); Carbon Dioxide 26.2 mmol/L (21.6-31.8); Chloride 109 mmol/L (96-109); Glucose 118 mg/dL (70-110); Potassium 4.4 mmol/L (3.5-5.5); Sodium 147 mmol/L (135-145)
== END | disposition home or self-care (01) ==
LOC: LABWHC1 08:23
PROVIDERS: ATTEND Internal Medicine
DX: N28.9 Disorder of kidney and ureter, unspecified (principal)
CPT/HCPCS: 36415; 80048

== ENCOUNTER → 2024-05-19 | Outpatient (CLI) | payer OTHER ==
[2024-05-19 15:36] LABS: Basophils # (A) 0.07 X 10*3/uL (0.00-0.10); Basophils % (A) 0.7 %; Eosinophils # (A) 0.15 X 10*3/uL (0.04-0.35); Eosinophils % (A) 1.4 %; HCT 42.7 % (37.2-46.3); HGB 13.5 g/dL (12.0-15.0); Lymphocytes % (A) 17.7 %; MCH 30.9 pg (27.0-32.0); MCHC 31.6 g/dL (32.0-37.0); MCV 97.7 FL (80.0-97.0); Mean Platelet Volume 11.8 FL (9.5-12.2); Monocytes # (A) 0.96 X 10*3/uL (0.20-1.00); Monocytes % (A) 8.9 %; NRBC Per 100 WBC 0 X 10*3/uL (0.00-0.01); Neutrophils # (A) 7.61 X 10*3/uL (1.80-7.70); Neutrophils % (A) 70.9 %; Platelet Count 233 X 10*3/uL (140-440); RBC 4.37 X 10*6/uL (4.10-5.20); RDW 14.1 % (11.5-14.5); WBC 10.73 X 10*3/uL (4.50-10.00)
[2024-05-19 15:41] LABS: ALT 18 U/L (8-44); AST 16 U/L (13-35); Albumin 3.7 g/dL (3.8-4.9); Albumin/Globulin Ratio 1.48 Ratio (1.60-3.17); Alkaline Phosphatase 106 U/L (41-126); BUN/Creat Ratio 21.13 Ratio (12.00-20.00); Blood Urea Nitrogen 31.7 mg/dL (9.0-27.0); Calcium 9.2 mg/dL (8.7-10.3); Carbon Dioxide 21.9 mmol/L (21.6-31.8); Chloride 112 mmol/L (96-109); Globulin 2.5 g/dL (1.6-3.3); Glucose 100 mg/dL (70-110); Potassium 3.4 mmol/L (3.5-5.5); Sodium 145 mmol/L (135-145); Total Bilirubin 0.5 mg/dL (0.3-1.2); Total Protein 6.2 g/dL (6.2-8.2)
--- NOTE | 2024-05-19 21:39 | US ---
EXAMINATION TYPE: US liver DATE OF EXAM: 05/19/2024 COMPARISON: NONE CLINICAL INDICATION: Female, 63 years old with history of K74.60 UNSPECIFIED CIRRHOSIS OF LIVER; TECHNIQUE: Grayscale and color Doppler imaging of the right upper quadrant was performed. FINDINGS: EXAM MEASUREMENTS: Liver Length: 14.9 cm Gallbladder Wall: 0.3 cm CBD: 0.6 cm Right Kidney: 10.2x4.1x4.8 cm SENIOR MEDIA BUYER NOTES:limited due to overlying bowel/habitus Pancreas: Obscured by bowel gas Liver: Increased attenuation, heterogeneous, course echotexture compatible with mild to moderate f atty infiltration of liver Gallbladder: multiple echogenic foci seen, largest: 1.2x0.4cm Evidence for sonographic Tsai's sign: No CBD: wnl Right Kidney: No hydronephrosis or masses seen IMPRESSION: 1 moderate fatty infiltration of the liver. 2. Cholelithiasis [facility], Workstation: 3, 05/19/2024 9:37 PM
== END | disposition home or self-care (01) ==
LOC: RADUSWWP 08:42
PROVIDERS: ATTEND Internal Medicine Gastroenterology
DX: K74.60 Unspecified cirrhosis of liver (principal); K76.0 Fatty (change of) liver, not elsewhere classified; K80.20 Calculus of gallbladder without cholecystitis without obstruction
CPT/HCPCS: 36415; 76705; 80053; 82105; 85025

== ENCOUNTER → 2024-05-25 | Outpatient (CLI) | payer OTHER ==
[2024-05-25 11:57] VITALS: BP 107/69; PULSE 78; RESP 18; TEMP 98
--- NOTE | 2024-05-25 12:27 | P.PROGSL ---
Subjective DATE: 05/25/2024 FOLLOW UP VISIT. Patient with obstructive sleep apnea hypopnea syndrome return to sleep center for follow-up visit. Information from previous visit have been reviewed. Patient is using PAP equipment every night for the whole night, getting PAP supplies in time. The patient does not have significant problems with the mask, PAP unit and humidification. [place] sleepiness scale is increased to 13. I checked information from PAP unit. PAP unit pressure 13 cm H2O. Usage is 100% for more then 4 hours, average 9.6 hours per night. Leak is in very high range 52 l/m. Apnea Hypopnea Index is 1.7, which is normal. MEDICATIONS have been reviewed, please see below. During physical exam: GENERAL: A pleasant patient without any distress. VITAL SIGNS: Please see below, weight is 286.6 lbs. HEENT: PERRLA, EOMI.low position of soft palate, Mallapati 3. NECK: Supple. No JVD. LUNGS: Clear to percussion and to auscultation. Good air exchange. No wheezing or rhonchi. HEART: S1, S2 irregular. ABDOMEN: Soft and nontender. Obese EXTREMITIES: No clubbing or cyanosis. 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 No focal deficit. Impressions: 1. Obstructive sleep apnea-hypopnea syndrome. Patient demonstrated great compliance with treatment, benefiting from treatment. 2. Obesity, BMI 43.4, patient increased weight on 7 pounds comparing with the previous visit. 3. Atrial fibrillation. 4. History of CHF. 5. Hypertension. 6. Hyperlipidemia. 7. Acid reflux. 8. History of anxiety. Plan: 1. Continue using PAP equipment every night for the whole night. 2. Sleep hygiene with regular time in bed for at least 7.5-8 hours 3. PAP unit should stay lower then position of the head. 4. Advised patient to remove all remaining water from humidifier canister daily and make it dry after each usage. Refill canister with fresh distilled water before each usage. 5. Watching weight. 6. Precautions related to driving. No driving if feel any sleepiness. 7. I will maintain prescription for PAP supplies including mask, tube, filters. 8. Follow up visit in 6-8 months or earlier if patient has any problems. Thank you very much for allowing me to participate in the management of your patient. Diego David MD, PhD, FAASM. Diplomat of [place] [employer], Sleep Medicine Board by [place] [employer] Oyster Cultivator of [facility] [place] cc: Edson Daley DO Objective - Vital Signs Vital Signs: Vital Signs Temp 98.0 F 05/25/24 11:56 Pulse 78 05/25/24 11:56 Resp 18 05/25/24 11:56 BP 107/69 05/25/24 11:56 Pulse Ox 97 05/25/24 11:56 FiO2 Intake & Output 05/24/24 05/25/24 05/25/24 18:59 06:59 18:59 Weight 129.898 kg Home Medications: Home Medications Medication Instructions Recorded Confirmed Type Albuterol Inhaler [Ventolin Hfa 2 puff INHALATION RT-Q4H PRN 11/10/16 01/22/24 History Inhaler] DULoxetine HCL [Cymbalta] 30 mg PO HS 11/10/16 01/22/24 History Apixaban [Eliquis] 5 mg PO BID tab 11/16/16 01/22/24 Rx Furosemide [Lasix] 40 mg PO DAILY tab 11/16/16 01/22/24 Rx Amiodarone [Cordarone] 100 mg PO DAILY 12/14/19 01/22/24 History Sacubitril/Valsartan [Entresto 49 1 each PO BID 12/14/19 01/22/24 History mg-51 mg Tablet] Umeclidinium [place] [Incruse 62.5 mcg INHALATION DAILY 12/14/19 01/22/24 History Ellipta] Solifenacin Succinate [Vesicare] 5 mg PO DAILY 11/19/21 01/22/24 History Atorvastatin [Lipitor] 40 mg PO HS 02/24/23 01/22/24 History Metoprolol Tartrate [Lopressor] 25 mg PO BID 02/24/23 01/22/24 History Spironolactone [Aldactone] 12.5 mg PO DAILY 01/21/24 01/22/24 History buPROPion [Wellbutrin] 50 mg PO BID 01/21/24 01/22/24 History hydrOXYzine HCL 20 mg PO HS PRN 01/21/24 01/22/24 History
== END ==
LOC: 3 N SLEEP 11:11
PROVIDERS: ATTEND Internal Medicine
DX: G47.33 Obstructive sleep apnea (adult) (pediatric) (principal); E66.9 Obesity, unspecified; I48.91 Unspecified atrial fibrillation; I11.0 Hypertensive heart disease with heart failure; I50.9 Heart failure, unspecified; K21.9 Gastro-esophageal reflux disease without esophagitis; F41.9 Anxiety disorder, unspecified; E78.5 Hyperlipidemia, unspecified; F17.200 Nicotine dependence, unspecified, uncomplicated; Z99.89 Dependence on other enabling machines and devices; Z79.01 Long term (current) use of anticoagulants; Z79.899 Other long term (current) drug therapy; Z68.41 Body mass index [BMI] 40.0-44.9, adult
CPT/HCPCS: 99212

== ENCOUNTER → 2024-05-25 | Outpatient (CLI) | payer OTHER ==
--- NOTE | 2024-05-28 15:24 | MM ---
Reason for Exam: Screening (asymptomatic). Last mammogram was performed 1 year(s) and 3 month(s) ago. Patient History: Menarche at age 14. First Full-Term at age 32. Late child-bearing (after 32). Postmenopausal. Risk Values: Mayi 5 year model risk: 2.0%. NCI Lifetime model risk: 9.7%. Prior Study Comparison: 03/08/2020 Bilateral Screening Mammogram, [facility]. 09/10/2021 Bilateral Screening Mammogram, [facility]. 02/11/2023 Bilateral MG screening mammo w CAD, [facility]. Tissue Density: The breasts are almost entirely fatty. Findings: Analyzed By CAD. The pattern is symmetrical. No significant interval change is evident. Stable focal asymmetry is within the left breast. No suspicious groups of microcalcifications, spiculated or lobular masses, architectural distortion or other secondary signs of malignancy are mammographically apparent. Overall Assessment: Benign, BI-RAD 2 Management: Screening Mammogram of both breasts in 1 year. A negative mammogram report should not preclude additional follow up of suspicious palpable abnormalities. Patient should continue monthly self breast exam. A clinical breast exam by your physician is recommended on an annual basis and results should be correlated with mammographic findings. Note on Mayi scores and lifetime risk: 1. A Mayi score greater than 3% is considered moderate risk. If this is the case, consider specialist referral to assess eligibility for a risk reducing agent. 2. If overall lifetime risk for the development of breast cancer is 20% or higher, the patient may qualify for future screening with alternating mammogram and breast MRI. [facility], , 05/28/2024 3:20 PM. Electronically signed and approved by: Hilario Mercado D.O. Radiologis
== END | disposition home or self-care (01) ==
LOC: RADMAMWWP 08:49
PROVIDERS: ATTEND Internal Medicine
DX: Z12.31 Encounter for screening mammogram for malignant neoplasm of breast (principal); Z78.0 Asymptomatic menopausal state
CPT/HCPCS: 77067

== ENCOUNTER → 2024-11-10 | Outpatient (CLI) | payer OTHER ==
--- NOTE | 2024-11-10 08:56 | US ---
EXAMINATION TYPE: US liver DATE OF EXAM: 11/10/2024 COMPARISON: NONE CLINICAL INDICATION: Female, 64 years old with history of K74.60 UNSPECIFIED CIRRHOSIS LIVER; Cirrhos is TECHNIQUE: Grayscale and color Doppler imaging of the right upper quadrant was performed. 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 Hepatic steatosis. 2. Uncomplicated cholelithiasis. [facility], , 11/10/2024 8:54 AM
[2024-11-10 15:44] LABS: Basophils # (A) 0.04 X 10*3/uL (0.00-0.10); Basophils % (A) 0.5 %; Eosinophils # (A) 0.08 X 10*3/uL (0.04-0.35); Eosinophils % (A) 0.9 %; HCT 45.3 % (37.2-46.3); Lymphocytes # (A) 1.37 X 10*3/uL (0.90-5.00); Lymphocytes % (A) 15.6 %; MCH 29.7 pg (27.0-32.0); MCHC 30.9 g/dL (32.0-37.0); MCV 96.2 FL (80.0-97.0); Mean Platelet Volume 12.1 FL (9.5-12.2); Monocytes # (A) 0.57 X 10*3/uL (0.20-1.00); Monocytes % (A) 6.5 %; NRBC Per 100 WBC 0 X 10*3/uL (0.00-0.01); Neutrophils % (A) 76.3 %; Platelet Count 226 X 10*3/uL (140-440); RBC 4.71 X 10*6/uL (4.10-5.20); WBC 8.78 X 10*3/uL (4.50-10.00)
[2024-11-10 16:02] LABS: ALT 19 U/L (8-44); AST 20 U/L (13-35); Albumin 3.8 g/dL (3.8-4.9); Albumin/Globulin Ratio 1.27 Ratio (1.60-3.17); Alkaline Phosphatase 84 U/L (41-126); Blood Urea Nitrogen 17.3 mg/dL (9.0-27.0); Calcium 9.6 mg/dL (8.7-10.3); Carbon Dioxide 27.1 mmol/L (21.6-31.8); Chloride 106 mmol/L (96-109); Chol/HDL Ratio 3.83 Ratio; Glucose 107 mg/dL (70-110); LDL Cholesterol,Calculated 88.5 mg/dL (0.0-131.0); Magnesium 1.7 mg/dL (1.5-2.4); Potassium 4.6 mmol/L (3.5-5.5); Sodium 145 mmol/L (135-145); Total Bilirubin 0.5 mg/dL (0.3-1.2); Total Protein 6.8 g/dL (6.2-8.2)
== END | disposition home or self-care (01) ==
LOC: RADUSWWP 08:17
PROVIDERS: ATTEND Internal Medicine Gastroenterology
DX: K74.60 Unspecified cirrhosis of liver (principal); K76.0 Fatty (change of) liver, not elsewhere classified; K80.20 Calculus of gallbladder without cholecystitis without obstruction
CPT/HCPCS: 76705; 80053; 80061; 82105; 82306; 83735; 84443; 85025

== ENCOUNTER → 2025-02-01 | Outpatient (CLI) | payer OTHER ==
[2025-02-01 10:40] VITALS: BP 103/70; PULSE 90; RESP 18; TEMP 98.2
--- NOTE | 2025-02-01 10:50 | P.PROGSL ---
Subjective DATE: 02/01/2025 FOLLOW UP VISIT. Patient with obstructive sleep apnea hypopnea syndrome return to sleep center for follow-up visit. Information from previous visit have been reviewed. Patient is using PAP equipment every night for the whole night, getting PAP supplies in time. The patient does not have significant problems with the mask, PAP unit and humidification. [place] sleepiness scale is slightly increased to 12. I checked information from PAP unit. PAP unit pressure 13 cm H2O. Usage is 90% for more then 4 hours, average 7.4 hours per night. Leak is increased to 49 l/m. Apnea Hypopnea Index is 0.5, which is normal. MEDICATIONS: Lasix 40 mg once a day, spironolactone 12.5 mg once a day, Eliquis 5 mg twice a day, Entresto, Ventolin, atorvastatin 40 mg once a day, metoprolol 50 mg twice a day, Zoloft 50 mg once a day, hydroxyzine 10 mg up to 2 times per day. During physical exam: GENERAL: A pleasant patient without any distress. VITAL SIGNS: Please see below, weight is 260.4 lbs. HEENT: PERRLA, EOMI.low position of soft palate, Mallapati 3. NECK: Supple. No JVD. LUNGS: Clear to percussion and to auscultation. Good air exchange. No wheezing or rhonchi. HEART: S1, S2 irregularly irregular. ABDOMEN: Soft and nontender. Slightly obese EXTREMITIES: No clubbing or cyanosis. CHOCOLATIER: Awake, alert, and oriented x3. No focal deficit. Impressions: 1. Obstructive sleep apnea-hypopnea syndrome. Patient demonstrated great compliance with treatment, benefiting from treatment. 2. Atrial fibrillation. 3. Obesity, BMI 40.7, patient lost 16 pounds comparing with previous visit. 4. History of CHF. 5. Hypertension. 6. Acid reflux. 7. History of anxiety. 8. Hyperlipidemia. Plan: 1. Continue using PAP equipment every night for the whole night. 2. Sleep hygiene with regular time in bed for at least 7.5-8 hours 3. PAP unit should stay lower then position of the head. 4. Advised patient to remove all remaining water from humidifier canister daily and make it dry after each usage. Refill canister with fresh distilled water before each usage. 5. Watching and losing weight. 6. Precautions related to driving. No driving if feel any sleepiness. 7. I will maintain prescription for PAP supplies including mask, tube, filters. 8. Follow up visit in 8 months or earlier if patient has any problems. Thank you very much for allowing me to participate in the management of your patient. Diego David MD, PhD, FAASM. Diplomat of [employer], Sleep Medicine Board by [employer] [facility] [place] Objective - Vital Signs Vital Signs: Vital Signs Temp 98.2 F 02/01/25 10:33 Pulse 90 02/01/25 10:33 Resp 18 02/01/25 10:33 BP 103/70 02/01/25 10:33 Pulse Ox 96 02/01/25 10:33 FiO2 Intake & Output 01/31/25 02/01/25 02/01/25 18:59 06:59 18:59 Weight 117.945 kg Home Medications: Home Medications Medication Instructions Recorded Confirmed Type Albuterol Inhaler [Ventolin Hfa 2 puff INHALATION RT-Q4H PRN 11/10/16 01/22/24 History Inhaler] DULoxetine HCL [Cymbalta] 30 mg PO HS 11/10/16 01/22/24 History Apixaban [Eliquis] 5 mg PO BID tab 11/16/16 01/22/24 Rx Furosemide [Lasix] 40 mg PO DAILY tab 11/16/16 01/22/24 Rx Amiodarone [Cordarone] 100 mg PO DAILY 12/14/19 01/22/24 History Sacubitril/Valsartan [Entresto 49 1 each PO BID 12/14/19 01/22/24 History mg-51 mg Tablet] Umeclidinium Holcomb [Incruse 62.5 mcg INHALATION DAILY 12/14/19 01/22/24 History Ellipta] Solifenacin Succinate [Vesicare] 5 mg PO DAILY 11/19/21 01/22/24 History Atorvastatin [Lipitor] 40 mg PO HS 02/24/23 01/22/24 History Metoprolol Tartrate [Lopressor] 25 mg PO BID 02/24/23 01/22/24 History Spironolactone [Aldactone] 12.5 mg PO DAILY 07/11/24 07/12/24 History buPROPion [Wellbutrin] 50 mg PO BID 01/21/24 01/22/24 History hydrOXYzine HCL 20 mg PO HS PRN 01/21/24 01/22/24 History
== END ==
LOC: 3 N SLEEP 10:16
PROVIDERS: ATTEND Internal Medicine
DX: G47.33 Obstructive sleep apnea (adult) (pediatric) (principal); I48.91 Unspecified atrial fibrillation; E66.9 Obesity, unspecified; Z68.41 Body mass index [BMI] 40.0-44.9, adult; I10 Essential (primary) hypertension; K21.9 Gastro-esophageal reflux disease without esophagitis; E78.5 Hyperlipidemia, unspecified; F41.9 Anxiety disorder, unspecified; Z86.79 Personal history of other diseases of the circulatory system; F17.200 Nicotine dependence, unspecified, uncomplicated
CPT/HCPCS: 99212